=== PATIENT | female | born 1955 | race Caucasian/White ===

== ENCOUNTER 2023-04-22 05:18 | Observation (INO) ==
--- NOTE | 2023-03-20 13:39 | PAT Medication Instructions ---
Medication Instructions Date of Service March 20, 2023 Home Medications amlodipine 10 mg-olmesartan 20 mg tablet 1 tab PO QAM ascorbic acid (vitamin C) 500 mg tablet (Vitamin C) 500 mg PO BID calcium citrate 200 mg (950 mg) tablet 200 mg PO HS coQ10 (ubiquinol) 100 mg capsule 100 mg PO QAM cyanocobalamin (vitamin B-12) 1,000 mcg capsule 1,000 mcg PO HS fenofibrate nanocrystallized 145 mg tablet 145 mg PO QAM glipizide 5 mg tablet 5 mg PO BID glucosamine-chondroitin 250 mg-200 mg tablet (Osteo Bi-Flex) 1 tab PO BID levothyroxine 150 mcg tablet (Synthroid) 150 mcg PO QAM montelukast 10 mg tablet 10 mg PO HS cholecalciferol (vitamin D3) 125 mcg (5,000 unit) tablet 125 mcg PO BID empagliflozin 25 mg tablet (Jardiance) 25 mg PO QAM fluticasone propionate 50 mcg/actuation nasal spray,suspension 2 spray intranasal DAILY PRN rabeprazole 20 mg tablet,delayed release 20 mg PO QAM krill 350 mg-omega-3 90 mg-dha 24 mg-epa 50 [id number] capsule (MegaRed [place]-3 Krill Oil) 1 cap PO QAM magnesium 250 mg tablet 250 mg PO HS pyridoxine (vitamin B6) 100 mg tablet 100 mg PO HS zinc acetate 50 mg (zinc) capsule 50 mg PO HS biotin 1 tab PO QAM STOP 3 days before surgery empagliflozin 25 mg tablet (Jardiance) 25 mg PO QAM Continue as directed fluticasone propionate 50 mcg/actuation nasal spray,suspension 2 spray intranasal DAILY PRN(if needed) STOP taking 2 weeks before surgery (or as soon as possible if surgery is within 2 weeks) coQ10 (ubiquinol) 100 mg capsule 100 mg PO QAM glucosamine-chondroitin 250 mg-200 mg tablet (Osteo Bi-Flex) 1 tab PO BID krill 350 mg-omega-3 90 mg-dha 24 mg-epa 50 [id number] capsule (MegaRed Graham-3 Krill Oil) 1 cap PO QAM biotin 1 tab PO QAM STOP taking 48 hours before surgery fenofibrate nanocrystallized 145 mg tablet 145 mg PO QAM DO NOT take the morning of surgery amlodipine 10 mg-olmesartan 20 mg tablet 1 tab PO QAM ascorbic acid (vitamin C) 500 mg tablet (Vitamin C) 500 mg PO BID glipizide 5 mg tablet 5 mg PO BID cholecalciferol (vitamin D3) 125 mcg (5,000 unit) tablet 125 mcg PO BID Take morning of surgery With a small sip of water, OTHERWISE NOTHING TO EAT OR DRINK AFTER MIDNIGHT: levothyroxine 150 mcg tablet (Synthroid) 150 mcg PO QAM rabeprazole 20 mg tablet,delayed release 20 mg PO QAM Take evening before surgery ascorbic acid (vitamin C) 500 mg tablet (Vitamin C) 500 mg PO BID calcium citrate 200 mg (950 mg) tablet 200 mg PO HS cyanocobalamin (vitamin B-12) 1,000 mcg capsule 1,000 mcg PO HS glipizide 5 mg tablet 5 mg PO BID montelukast 10 mg tablet 10 mg PO HS cholecalciferol (vitamin D3) 125 mcg (5,000 unit) tablet 125 mcg PO BID magnesium 250 mg tablet 250 mg PO HS pyridoxine (vitamin B6) 100 mg tablet 100 mg PO HS zinc acetate 50 mg (zinc) capsule 50 mg PO HS Other Notes If you have any questions please call us at [phone] or [phone] or [phone] or [phone]
--- NOTE | 2023-04-01 12:01 | Anesthesiology Consultation ---
Date of Service April 01, 2023 Assessment & Plan (1) Encounter for pre-operative examination: Chart Review Chart Review: Acceptable Risk for Surgery and Patient seen in Pre Admission Testing - Check BSG AM DOS - Pt not an ideal OPJ candidate (currently 23 hour observation) Per PAT appt on 04/01/23, no recent illness/disease exposures, illness related symptoms, or recent illness/disease positive tests. Will leave to surgeon's d iscretion if preop Covid testing needed Patient seen by PCP 03/28/2023 = seen for preop and routine visit for follow-up. Had sick iliopsoas last month and was briefly hospitalized but fortunately has made full recovery. Will be getting CPAP on 04/10/2023. Planning for knee surgery next month. Overall feeling well. Patient medically optimized; cleared for procedure. Fibromyalgia stable. Hypertensionstable. Morbid obesitydiet and exercise. OSAstart CPAP on April 10. Type 2 diabetescontinue meds. GERD quiescent Right knee arthroscopy 02/23/21= Done under [facility] with LMA #4. Atraumatic x 1 attempt Teaching & Discussion Pre-Anesthesia Teaching/Discussion Notes: Instructed NPO after midnight before surgery,except medications with 15 cc of water. Medication instructions provided according to the PAT guidelines. History Surgery Operation Date: 04/22/23 07:00 Proposed Procedures p Left Total Knee Arthroplasty - Ed Jaime Pelayo MD Height/Weight Height: 5 ft 7 in Weight: 111.5 kg Allergies Allergy/AdvReac Type Severity Reaction Status Date / Time levofloxacin [From Levaquin] Allergy Mild Rash Verified 03/20/23 12:17 pantoprazole AdvReac Leg cramps Verified 03/20/23 12:17 Medications Home Medications Medication Instructions Recorded Confirmed Last Taken amlodipine 10 mg-olmesartan 20 mg 1 tab PO QAM 01/25/21 03/20/23 02/23/21 02:30 tablet ascorbic acid (vitamin C) 500 mg 500 mg PO BID 01/25/21 03/20/23 02/22/21 tablet (Vitamin C) calcium citrate 200 mg (950 mg) 200 mg PO HS 01/25/21 03/20/23 02/22/21 tablet coQ10 (ubiquinol) 100 mg capsule 100 mg PO QAM 01/25/21 03/20/23 02/22/21 cyanocobalamin (vitamin B-12) 1,000 mcg PO HS 01/25/21 03/20/23 02/22/21 1,000 mcg capsule fenofibrate nanocrystallized 145 145 mg PO QAM 01/25/21 03/20/23 02/20/21 mg tablet glipizide 5 mg tablet 5 mg PO BID 01/25/21 03/20/23 02/23/21 02:30 glucosamine-chondroitin 250 mg-200 1 tab PO BID 01/25/21 03/20/23 02/20/21 mg tablet (Osteo Bi-Flex) levothyroxine 150 mcg tablet 150 mcg PO QAM 01/25/21 03/20/23 02/23/21 02:30 (Synthroid) montelukast 10 mg tablet 10 mg PO HS 01/25/21 03/20/23 02/22/21 cholecalciferol (vitamin D3) 125 125 mcg PO BID 02/26/23 03/20/23 Unknown mcg (5,000 unit) tablet empagliflozin 25 mg tablet 25 mg PO QAM 02/26/23 03/20/23 Unknown (Jardiance) fluticasone propionate 50 2 spray intranasal DAILY PRN 02/26/23 03/20/23 Unknown mcg/actuation nasal Congestion spray,suspension rabeprazole 20 mg tablet,delayed 20 mg PO QAM 02/26/23 03/20/23 Unknown release krill 350 mg-omega-3 90 mg-dha 24 1 cap PO QAM 02/27/23 03/20/23 Unknown mg-epa 50 cz-[id number]-yasii capsule (MegaRed [place]-3 Krill Oil) magnesium 250 mg tablet 250 mg PO HS 02/27/23 03/20/23 Unknown pyridoxine (vitamin B6) 100 mg 100 mg PO HS 02/27/23 03/20/23 Unknown tablet zinc acetate 50 mg (zinc) capsule 50 mg PO HS 02/27/23 03/20/23 Unknown biotin 1 tab PO QAM 03/20/23 03/20/23 Unknown Past Medical History Medical History (Updated 04/01/23 @ 14:41 by Pamela Vera PA-C) History of recent hospitalization 02/26/23, dx w/shigella>no current issues Sleep apnea dx and working w/PCP to get a cpap currently Hx of Lyme disease 2012 s/p treatment- no residual issues Osteoarthritis Fatty liver Mild LFT elevation - stable GERD (gastroesophageal reflux disease) Controlled Diabetes mellitus, type 2 NIDDM Glucose stable Hypothyroidism Temporomandibular joint disorder Mouth guard HS-since wearing guard doesn't get any clicking or locking Anxiety Hypertension Hyperlipidemia Exercise / Class Metabolic Activity II 4-5 Yardwork/Stairs/Walk up hill (one flight of stairs - no chest pain or SOB ) Past Family History Family History Father Family history of diabetes mellitus Sister Family history of diabetes mellitus Other No family history of adverse response to anesthesia Past Surgical History Surgical History Hx of left cataract extraction rt eye to be done 04/08/23 History of endometrial ablation History of dilatation and curettage History of esophagogastroduodenoscopy (EGD) H/O lumpectomy Left (benign) History of arthroscopy Left knee and right knee History of colonoscopy History of section x3 [place] teeth removed History of tonsillectomy Past Anesthesia History No Hx of Anesthesia Complications and No Family Hx of Anesthesia Complications (with exception to sister- possibly given too much anesthesia- stopped breathing- but did recover ) History of PONV No Hx of PONV and No Hx of Motion Sickness Social History Smoking Status: Never smoker Do You Dip or Chew Tobacco: No Hx Alcohol Use: No Hx Substance Use: No substance use type: does not use Review of Systems Patient denies chest pain, shortness of breath, dyspnea on exertion, cough, wheezing, palpitations. No hx of seizures, stroke, [place]. No hx of blood clots or blood transfusions Physical Exam Vital Signs VITALS BP 113/73 P 91 TEMP 97.9 SP02 94% RESP 16 Constitutional no acute distress ENMT Mouth: no TMJ clicking Thyromental Distance: < 3.5 Finger Breadths (3.0) Mallampati Class: III Crowns to side teeth/molars Neck neck extension not limited Respiratory normal respiratory effort; no respiratory distress Auscultation: lungs clear to auscultation bilaterally; no wheezes Cardiovascular Rate/Rhythm: regular rate and regular rhythm Heart Sounds: no murmur Vessels: no carotid bruit Musculoskeletal Spine: no pain with cervical ROM Extremities: extremities normal to inspection Psychiatric Orientation: alert Lab Results Anesthesia Preop Results Results Anesthesia Widget: PT 10.4 Seconds (9.0-12.0) 04/01/23 PTT 27.6 Seconds (21.0-31.0) 04/01/23 INR 0.9 (0.9-1.1) 04/01/23 Urine Color Yellow 04/01/23 Urine Appearance Clear (Clear) 04/01/23 Urine pH 5.5 (4.5-7.5) 04/01/23 Urine Specific [place] 1.039 (1.000-1.030) H 04/01/23 Urine Protein Negative (Negative) 04/01/23 Urine Glucose (UA) 3+ (Negative) H 04/01/23 Urine Ketones Negative (Negative) 04/01/23 Urine Blood Negative (Negative) 04/01/23 Urine Nitrite Negative (Negative) 04/01/23 Urine Bilirubin Negative (Negative) 04/01/23 Urine Urobilinogen Negative (Negative) 04/01/23 Urine Leukocyte Esterase Negative (Negative) 04/01/23 Blood Type A Positive 04/01/23 Antibody Screen NEGATIVE 04/01/23 Testing Laboratory Results 03/28/23= WBC: 10.23 H/H: 14.9/46.1 PLATELETS: 501 (chronic and stable since at least 2018 per [facility] labs) SODIUM: 140 POTASSIUM: 4.5 CHLORIDE: 103 CO2: 25 BUN: 16 CREATININE: 0.9 GLUCOSE: 169 ALT: 47 AST: 38 ALK PHOS: 82 HGB A1C: 7.1 TSH: 0.25 (med adjustments made per patient) FREE T4: 2.0 Electrocardiogram Date: 02/21/23 Findings: + NSR @ (93bpm) Low voltage QRS, consider pulmonary disease, pericardial effusion or normal variant When compared to EKG from November 02, 2021no significant change was found per cardio Chest X-Ray Date: 04/01/23 Findings: + NAD
[2023-04-22] MEDS ORDERED: TRANEXAMIC ACID 1,000 MG **IV Intra-op IV SCH (06:00)
[2023-04-22] MEDS ORDERED: ACETAMINOPHEN 500 MG TAB PO SCH (06:00)
[2023-04-22] MEDS ORDERED: ROPIVACAINE 0.5% HCL/PF 150 MG, BUPIVACAINE 0.75% MPF 20 ML, EPINEPHrine 0.15 MG, Ketor... INFIL SCH (06:00)
[2023-04-22] MEDS ORDERED: Scopolamine 1 MG TDSY TD SCH (06:00)
[2023-04-22] MEDS ORDERED: ceFAZolin 2000MG 2,000 MG/15 ML SYR IV SCH (06:00)
[2023-04-22] MEDS ORDERED: CeleBREX 200 MG CAP PO SCH (06:00)
[2023-04-22] MEDS ORDERED: TRANEXAMIC ACID 1,000 MG **IV Pre-op IV SCH (06:00)
[2023-04-22] MEDS ORDERED: LR 60ML/HR IV SCH (06:00)
[2023-04-22] MEDS ORDERED: ROPIVACAINE 0.5% 5 MG/ML 30 ML VIAL ONE (06:12)
[2023-04-22] MEDS ORDERED: fentaNYL citrate PF 100 MCG/2 ML VIAL IV PRN (06:33)
[2023-04-22] MEDS ORDERED: ONDANSETRON INJ 2 MG/ML 2 ML VIAL IV PRN ×2 (06:33→11:02)
[2023-04-22] MEDS ORDERED: ePHEDrine sulfate 50 MG/ML AMP IV PRN (06:33)
[2023-04-22] MEDS ORDERED: ATROPINE SULFATE 0.1 MG/ML 10ML SYR IV PRN (06:33)
[2023-04-22] MEDS ORDERED: HYDROmorphone INJ 2 MG/ML SYR/VIAL IV PRN (06:33)
--- NOTE | 2023-04-22 06:35 | History & Physical Bridge Note ---
Date of Service April 22, 2023 History & Physical Bridge Note I have examined the patient, reviewed the History & Physical and in the interval since the performance of the History & Physical I have noted the following changes of clinical significance: no changes noted
[2023-04-22] MEDS ORDERED: fentaNYL citrate PF 100 MCG/2 ML VIAL ONE (06:39)
[2023-04-22] MEDS ORDERED: MIDAZOLAM HCL 1 MG/ML 2ML VIAL ONE (06:39)
--- OUTSIDE RECORDS SUMMARY | 2023-04-22 06:51 | External Medical Summary | Summary of Care ---
Author Name Unknown Organization [facility] Address [address] [place] [address] Phone [phone] Care Team Providers Care Mounter Hand Name Role Phone Bunny Peña MD Primary Care Provider [phone] Reason for Visit * Reason Onset Date Comments Health Maintenance 04/16/2023 Encounter Details Date Type Department Care Team (Late st Contact Info) Description 04/16/2023 Telephone Family Practice [facility] [address] [facility] [place] [address] Bunny Peña MD [address] [facility] [place] [address] Health Maintenance Allergies Active Allergy Reactions Criticality Noted Date Comments Pollen 11/02/2018 Seasonal allergies Levofloxacin In D5w Rash High 11/02/2018 Pantoprazole 01/30/2021 Leg cramps documented as of this encounter (statuses as of 04/16/2023) Medications Medication Sig Dispensed Refills Start Date End Date Status Fluticasone Propionate 50 MCG/ACT Nasal Suspension Administer 1 Kimper into nostril in the morning. 0 Active B Complex Vitamins (B COMPLEX 50) TABS Take by mouth. 0 A ctive Cholecalciferol 50 MCG (1999 UT) Oral Capsule Take 1 Capsule by mouth in the morning. 0 Active Ascorbic Acid (VITAMIN C) 100 MG Tablet Take 1 Tablet by mouth in the morning. 0 Active Coenzyme Q10 (COQ10) 100 MG CAPS Take by mouth. 0 Active Triamcinolone Acetonide 0.1 % External Ointment (Aristocort)Indicati ons:Hand dermatitis Apply to rash on hands 2x daily (or more if itchy instead of scratching) until resolved 30 g 0 08/29/2020 Active Albuterol Sulfate HFA 108 (90 Base) MCG/ACT Inhalation Aerosol SolutionIndications: Suspected COVID-19 virus infection Inhale 2 Puffs by mouth every 6 hours as needed for Cough. 18 g 1 05/25/2021 Active Move Free Joint Health Advance Oral Tablet Take by mouth . 0 Active glipiZIDE 5 MG Oral Tablet (Glucotrol) TAKE 1 TABLET TWICE A DAY, 30 MINUTES BEFORE MEALS 180 Tablet 3 08/07/2022 Active Fenofibrate 145 MG Oral Tablet (Tricor) Take 1 Tablet by mouth in the morning. In the morning.. 90 Tablet 3 08/07/2022 Active amLODIPine-Olmesarta n 10-20 MG Oral Tablet Take 1 Tablet by mouth in the morning. 90 Tablet 3 08/07/2022 Active Montelukast Sodium 10 MG Oral Tablet (Singulair) TAKE 1 TABLET BEFORE BEDTIME 90 Tablet 2 12/18/2022 Active RABEprazole Sodium 20 MG Oral Tablet Delayed Release TAKE 1 TABLET IN THE MORNING 90 Tablet 2 01/20/2023 Active Ketorolac Tromethamine 0.5 % Ophthalmic Solution (Acular) Instill 1 Drop into the left eye in the morning and 1 Drop at noon and 1 Drop in the evening and 1 Drop before bedtime. 0 01/31/2023 Active prednisoLONE Acetate 1 % Ophthalmic Suspension (Pred Forte) Instill 1 Drop into the left eye in the morning and 1 Drop at noon and 1 Drop in the evening and 1 Drop before bedtime. 0 01/30/2023 Active Zinc Acetate 50 MG Oral Capsule Take by mouth. 0 Active Magnesium 250 MG Oral Tablet Take 1 Tablet by mouth in the morning. 0 Active Biotin 5 MG Oral Tablet Take 1 Tablet by mouth in the morning. 0 Active Krill Oil 300 MG Oral Capsule Take 1 Capsule by mouth in the morning. 0 Active Levothyroxine Sodium 125 MCG Oral Tablet (Synthroid) Take 1 Tablet by mouth in the morning. (at least 30 min prior to breakfast or other meds). 90 Tablet 1 03/31/2023 Active Jardiance 25 MG Oral Tablet (Empagliflozin)Indic ations:Type 2 diabetes mellitus without complications (HCC) TAKE 1 TABLET BY MOUTH EVERY DAY IN THE MORNING 30 Tablet 2 04/15/2023 Active documented as of this encounter (statuses as of 04/16/2023) Active Problems Problem Noted Date Diagnosed Date HERBERT (obstructive sleep apnea) 11/01/2021 H/O dysplastic nevus 10/03/2021 Overview: Mildly atypical nevus (L distal neck) Fibromyalgia 07/16/2019 HTN, goal below 130/80 04/16/2019 Type 2 diabetes mellitus wit h hemoglobin A1c goal of less than 8.0% 04/13/2019 Acquired hypothyroidism 11/02/2018 Dyslipidemia 11/02/2018 Gastroesophageal reflux disease with esophagitis 11/02/2018 Morbid obesity 11/02/2018 documented as of this encounter (statuses as of 04/16/2023) Resolved Problems Problem Noted Date Diagnosed Date Resolved Date Food insecurity 12/16/2022 03/28/2023 Overview: Per [facility] Protocol Food insecurity 01/14/2022 06/19/2022 Overview: Per [facility] Protocol Obesity, Class II, BMI 35-39 .9, isolated (see actual BMI) 07/28/2021 03/05/2023 At risk for obstructive sleep apnea 07/28/2021 11/01/2021 Primary osteoarthritis of left knee 10/18/2019 11/02/2021 Recurrent major depressive d isorder, in partial remission 04/16/2019 11/02/2021 Chronic pain of left knee 11/02/2018 Impaired fasting glucose 11/02/201802/2019 documented as of this encounter (statuses as of 04/16/2023) Immunizations Name Administration Dates Next Due COVID-19 mRNA, LNP-s, No Pre serve, 2-Dose Series (Moderna) 06/12/2020,2020 Pneumococcal Conjugate Vaccine, 20-valent (Prevn ar20) 11/02/2021 Pneumococcal Polysaccharide PPV23 (Pneumovax) Seasonal Influenza Virus Vac cine, Unspecified Formulation 01/23/2022,01/17/2019 Seasonal Influenza, PF, 6 M & above, IM , (FluLaval or Fluzone) 02/17/2020,01/17/2019 Seasonal Influenza, Quadrivalent Hd (Fluzone Hd) 02/21/2023 TDAP (age 10 and older)(Boostrix) 06/04/2017 Zoster Vaccine Recombinant (Shingrix) 10/18/2019 ,07/16/2019 documented as of this encounter Social History Tobacco Use Types Packs/Day Years Used Date Smoking Tobacco: Never Smokeless Tobacco: Never Alcohol Use Standard Drinks/Week Comments Never 0 (1 standard drink = 0.6 oz pur e alcohol) AUDIT-C Answer Date Recorded Frequency of Alcohol Consumption Never 11/02/2018 Average Number of Drinks Not on file 019 Frequency of Binge Drinking Not on file 05/2018 PHQ-2 Answer Date Recorded PHQ Adult Total Score 3 05/26/2020 Hunger Vital Sign Answer Date Recorded Within the past 12 months, y ou worried that your food would run out before you got the money to buy more. Often true Within the past 12 months, t he food you bought just didn't last and you didn't have money to get more. Sometimes true Sex and Gender Information Value Date Recorded Sex Assigned at Female 09/25/2021 10:03 AM EDT Gender Identity Female 09/25/2021 10:03 AM EDT Sexual Orientation Straight 09/25/2021 10 :03 AM EDT Job Start Date Occupation Industry Not on file Not on file Not on file documented as of this encounter Miscellaneous Notes * Telephone Encounter - Wendy Perez LPN - 04/16/2023 11:14 AM EST Care Gaps Comprehensive Care Outreach Last Office/Telemedicine Visit: 03/28/2023 (in office), 05/29/2022 (telemedicine) Next Office Visit: 06/06/2023 Hemoglobin AIC Results: Lab Results Component Value Date/Time HEMOGLOBIN A1C - [facility] 7.1 (H) 03/28/2023 02:02 PM HEMOGLOBIN A1C - [facility] 7.2 (H) 06/20/2022 11:37 AM HEMOGLOBIN A1C - [facility] 10.5 (H) 10/31/2021 07:57 AM HEMOGLOBIN A1C - [facility] 8.1 (H) 05/26/2020 11:33 AM HEMOGLOBIN A1C - [facility] 7.6 (H) 07/16/2019 12:52 PM HEMOGLOBIN A1C - [facility] 8.5 (H) 04/10/2019 09:19 AM Reviewed Health Maintenance below: Health Maintenance Topic Date Due Hepatitis C Screening Never done Hepatitis B (1 of 3 - Risk 3-dose series) Never done Depression Screening 05/26/2021 Diabetic Eye Exam 09/07/2021 COVID-19 Vaccine () 01/03/2023 Eye myng Care Gap Outreach Action Taken: Myportal message sent documented in this encounter Plan of Treatment Upcoming Encounters Date Type Department Care Team (Late st Contact Info) Description 06/06/2023 8:40 AM EST Office Visit Family Practice [facility] [address] [facility] [place] [address] Bunny Peña MD [address] [facility] [place] [address] 09/30/2023 8:15 AM EDT Imaging Radiology [facility] [address] [facility] [place] [address] 11/20/2023 8:20 AM EDT Office Visit Dermatology[address] [address] Marian Gardner PA-C [address] [place] [address] [place] [id number] Scheduled Procedures Name Priority Associated Diagnoses Date/Ti me COLONOSCOPY FLEXIBLE PROXIMA L DIAGNOSTIC Recall History of adenomatous polyp of colon Health Maintenance Due Date Last Done Comments Hepatitis C Screening 1974 Cologuard 2001 Fecal Occult Blood Test 2001 Sigmoidoscopy 2001 Hepatitis B (1 of 3 - Risk 3-dose series) 2016 Depression Screening 05/26/2021 05/26/2020 Diabetic Eye Exam 09/07/2021 09/07/2020 COVID-19 Vaccine () 01/03/2023 06/12/2020, 2020 HbA1c 09/26/2023 03/28/2023, 06/05, 10/31/2021, Additional history exists Mammogram 09/27/2023 09/26/2022, 09/02, 06/14/2020, Additional history exists Diabetic Foot Exam 02/22/2024 02/21/2023, 0 11/02/2021, 04/18/2020 Albumin/Creatinine Ratio 03/28/2024 03/28/2023, 0601/2022 GFR 03/28/2024 03/28/2023, 06/05, 01/26/2021, Additional history exists TSH 03/28/2024 03/28/2023, 06/05, 10/31/2021, Additional history exists Lipid Panel 10/31/2026 10/31/2021, 10/03, 04/10/2019 DTaP,Tdap,and Td Vaccines (2 - Td or Tdap) 06/04/2027 06/04/2017 DXA Scan 11/11/2029 11/11/2022 Colonoscopy 08/16/2030 08/16/2020, 08/16/2020 Colorectal Cancer Screening 08/16/2030 Zoster Vaccines Completed 10/18/2019, 07/16/2019 Pneumococcal Vaccine: 65+ Years Completed 11/02/2021, 07/16/2019 Influenza Vaccine (FLU shot) Completed , 01/23/2022, 02/17/2020, Additional history exists GARDASIL-HPV IMMUNIZATION SERIES Aged Out No longer eligible based on patient's age to complete this topic MENINGOCOCCAL (MENACTRA/MENVEO) Aged Out No longer eligible based on patient's age to complete this topic documented as of this encounter Medical Devices Implanted Type Area Application Packager Device Identifier Shelf Expiration Date Model / Serial / Lot Lens Li61ao 13.00mm 14.00 - [id number] - [id number] Implanted:Qty: 1 on 03/11/2023 by Norberto Clarke MD at [facility] Left: Eye [employer] 09/02/2027 [id number] / [id number] / [id number] Lens Li61ao 13.00mm 13.00 - [id number] - [id number] Implanted:Qty: 1 on 04/08/2023 by Norberto Clarke MD at [facility] Right: Eye [employer] 08/03/2027 [id number] / [id number] / [id number] documented as of this encounter Advance Directives Latest Code Status on File Code Status Date Activated Date Inactivated Comments Full Code 04/08/2023 6:45 AM 04/08/2023 12:41 PM This order reflects the patients wishes and were consensually agreed upon. Question Answer Comments Discussion of Advance Directives occurred with: Patient Does the patient have a Living Will? No Does the patient have Health Care Power of [employer]il[place]? No Code Status History Code Status Date Activated Date Inactivated Comments Full Code 03/11/2023 8:34 AM 03/11/2023 3:22 PM This order reflects the patients wishes and were consensually agreed upon. Question Answer Comments Discussion of Advance Directives occurred with: Patient Does the patient have a Living Will? No Does the patient have Health Care Power of [employer]? No Care Teams Mounter Hand Relationship Specialty Start Date End Date Bunny Peña MD [address] [place] [id number] PCP - General Family Medicine 11/02/18 documented as of this encounter
--- OUTSIDE RECORDS SUMMARY | 2023-04-22 06:51 | External Medical Summary | Continuity of Care Document ---
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 [place] [id number] [address] [place] [id number] Encounter Diagnosis Left knee DJD(Discharge Diagnosis) - 04/01/23 Discharge Disposition: Home or Self Care Attending Physician: SHANE Daniels, Jade Referring Physician: MD Gita, Ed A Allergies, Adverse Reactions, Alerts Substance Reaction Severity Status Levaquin rash Active pantoprazole leg cramps Active Medications amLODIPine-olmesartan 10 mg-20 mg oral tablet TAKE 1 TABLET BY MOUTH EVERY DAY Start Date: 11/30/20 Status: Ordered B-12 Start: 11/30/20 10:50:00 EDT, 1,000 mcg =, PO, Daily Start Date: 11/30/20 Status: Ordered biotin Start: 04/01/23 10:53:00 EST Start Date: 04/01/23 Status: Ordered Calcium and Magnesium oral tablet Start: 11/30/20 10:53:00 EDT, 1 tab, PO, tid, magnesium zinc d 3 333/133/5mg/5mcg Start Date: 11/30/20 Status: Ordered Citracal Regular Start: 11/30/20 10:52:00 EDT, 400 mg daily Start Date: 11/30/20 Status: Ordered Co Q-10 Start: 11/30/20 10:52:00 EDT, 100 mg =, PO, Daily Start Date: 11/30/20 Status: Ordered Euflexxa 10 mg/mL intra-articular solution Start: 04/09/21 14:03:00 EST, 20 mg =, intra-articular, q7days, Disp# 12 mL, Refills: 0[facility]: B/L OA M17.0, Pharmacy: [facility] Start Date: 04/09/21 Stop Date: 04/30/21 Status: Ordered fenofibrate 145 mg oral tablet Start: 11/30/20 10:49:00 EDT, 1 tab, PO, Daily Start Date: 11/30/20 Status: Ordered Flonase 50 mcg/inh nasal spray Start: 11/30/20 10:51:00 EDT, 1 spray, each nostril, Daily Start Date: 11/30/20 Status: Ordered glipiZIDE 5 mg oral tablet Start: 11/30/20 10:49:00 EDT, 1 tab, PO, Daily Start Date: 11/30/20 Status: Ordered Jardiance 25 mg oral tablet Start: 03/20/22 12:43:00 EST, 1 tab, PO, Daily, Disp# 30 tab Start Date: 03/20/22 Status: Ordered ketorolac 0.5% ophthalmic solution Start: 04/01/23 10:52:00 EST Start Date: 04/01/23 Status: Ordered magnesium aspartate Start: 04/01/23 10:53:00 EST Start Date: 04/01/23 Status: Ordered montelukast 10 mg oral tablet Start: 11/30/20 10:49:00 EDT, 1 tab, PO, qPM Start Date: 11/30/20 Status: Ordered Osteo Bi-Flex Start: 11/30/20 10:53:00 EDT, 2 daily Start Date: 11/30/20 Status: Ordered polymyxin B-trimethoprim 10,000 units-1 mg/mL ophthalmic solution Start: 04/01/23 10:53:00 EST Start Date: 04/01/23 Status: Ordered prednisoLONE acetate 1% ophthalmic suspension Start: 04/01/23 10:53:00 EST Start Date: 04/01/23 Status: Ordered RABEprazole 20 mg oral delayed release tablet Start: 04/01/23 10:53:00 EST Start Date: 04/01/23 Status: Ordered Harshal Antartic Krill Oil Start: 04/01/23 10:53:00 EST Start Date: 04/01/23 Status: Ordered Synthroid 150 mcg (0.15 mg) oral tablet Start: 11/30/20 10:49:00 EDT, 1 tab, PO, Daily Start Date: 11/30/20 Status: Ordered Vitamin C Start: 11/30/20 10:51:00 EDT, 1,000 mg =, PO, Daily Start Date: 11/30/20 Status: Ordered Vitamin D3 Start: 11/30/20 10:51:00 EDT, 5000 iu, PO, Daily Start Date: 11/30/20 Status: Ordered Zinc Start: 04/01/23 10:53:00 EST Start Date: 04/01/23 Status: Ordered Mental Status 04/01/23 Barriers to Learning one year None evide nt Mandatory Health Literacy Documentation Yes Health Literacy Communication Barriers N ever Primary Language Maltese Problem List Condition Confirmation Course Effective Dates Status Health St atus Informant Anxiety Confirmed Active Arthritis Confirmed Active Bilateral knee pain Confirmed Active Diabetes Confirmed Active Thyroid disease Confirmed Active High blood pressure Confirmed Active OA (osteoarthritis) of knee Confirmed Active Left knee DJD Confirmed Active S/P orthopedic surgery, follow-up exam Confirmed Active Tear of meniscus of right knee Confirmed Active Diagnosis Diagnosis Type Effective Dates Health Status Cl inical Service Informant Left knee DJD Discharge Diagnosis 04/01/23 Procedures Procedure Date Related Diagnosis Body Site Status Arthroscopy of knee with med ial and lateral meniscectomy 1 02/23/21 Completed section 2 Comple javi History of orthopedic surgery 3 Completed Lumpectomy Completed Tonsillectomy Completed 1Right knee arthroscopy, PMM and PLM, chondroplasty, extensive debridement 23 33 on left knee Vital Signs Most recent to oldest [Reference Range]: 1 Height 167.7 cm (04/01/23 10:50 AM) Patient Weight 108.4 kg (04/01/23 10:50 AM) Body Mass Index 38.54 kg/m2 (04/01/23 10:50 AM) Temperature [36.5-37.9 DegC] 36.5 DegC (04/01/23 10:50 AM) Heart Rate 99 bpm (04/01/23 10:50 AM) Respiratory Rate 20 br/min (04/01/23 10:50 AM) Blood Pressure 130/62mmHg (04/01/23 10:50 AM) Social History Social History Type Response Smoking Status Never smoked cigaret cuong Sex Female History and physical note * SHANE Daniels, Jade: PERFORM Event Display: . Authored Date: [id number] Chief Complaint pre op History of Present Illness Dianne is a 67-year-old female here today for preoperative history and physical for left total kneearthroplasty with Dr. Pelayo. She has had ongoing left knee pain that got worse October 07, 2022 aftera fall. She is unable to afford hyaluronic acid injections so she has been getting cortisone injections. Her last cortisone injection was 10/24/2022. The cortisone injections stopped helping her. She reports soreness in her knee mostly over the medial joint line. She is currently taking Tylenol and ibuprofen at nighttime for pain. She is status post right knee arthroscopy, extensive debridement, partial medial and lateral meniscectomies, chondroplasty of the patellofemoral compartment, medial compartment and lateral tibial plateau on February 23, 2021. She denies any history of blood clots, heart attack, stroke. She is not a smoker. She did just recentlyhaveshigellosis and was hospitalized on February 26 but she reports that she is fully recovered and is finished her antibiotics and is currently havingno symptoms. She denies any changes with her knee since she waslast seen. Review of Systems DeniesRecent pneumonia, COVID or COVID exposures; DeniesFevers, chills, malaise; DeniesChest pain, heart palpitations; DeniesShortness of breath, cough; DeniesHeadache or blurry vision; DeniesAbdominal pain, nausea, vomiting, diarrhea, or urinary symptoms Physical Exam Vitals & Measurements T:36.5C HR:99(Monitored) RR:20 BP:130/62 SpO2:92% HT:167.7cm WT:108.4kg WT:108.400kg(Dosing) BMI:38.54 General: Pt is well nourished, seated on the exam table AA&O, in NAD, calm and cooperative during exam HENT: Nontraumatic, no gross deformity, hearing and vision grossly in-tact, PERRL Heart: +S1, +S2, RRR, no murmurs appreciated Lungs: CTABL, no wheezing appreciated Focusing on the patient's left lower extremity: 2+ DP pulse Sensation to light touch is intact Motor to the gastroc soleus, tibialis anterior, and EHL is 5/5. Able to perform straight leg raise. + Medial joint line tenderness left - Rafaela's Ligamentous examination exhibits: Stable Yesenia 0 mm anterior translation and firm endpoint Posterior drawer stable Varus valgus stress at 0 and 30stable Valgus stress at 0 and 30stable Trace Effusion on left Left knee range of motion -5125. + Tenderness to palpation inferior pole of patella, left Palpable romero's cyst, left [1] Diagnostic Results Dr. Pelayo obtained and personally interpreted bilateral knee OA series which included: Hips to ankles, 45 degree flexion PA view, AP standing, lateral, and sunrise views of both knees compared to 2021 which showed progressed left knee medial joint space narrowing greater than right, marginal osteophytes, sclerosis. The left knee with near [id number]. 8 degrees varus alignment on the right and 4degrees varus alignment on the left. [2] Assessment/Plan 1.Left knee DJD Preop The risks and benefits of surgery as well as the post operative course was explained and discussed with the patient. Written consent obtained. The patient's past medical history, surgeries, social history, medication list, allergies and PDMP were reviewed and confirmed with the patient. Patientobt ainedmedical clearance. Has her PAT appointment today. EKGdone 02/24/2022nd showed no concerning findings. He had ahemoglobin A1c done on 02/2423 that was 7.1, TSH done 03/28/2023, CMPdone 03/28/2023that showed elevated glucose slightly elevatedLFTs,CBC done showedelevated platelets.Otherpreoperative orders were placedincluding type and screen, PTT/INR,urinalysis with reflex to culture and sensitivityand chest x-ray. We discussed postoperative painmedications includingoxycodone, tylenol,as well as icing and elevating to control pain. DVT prophylaxis -ASA 81mg BID x 6 weeks and JAVI stockings x 2 weeks. Additional medications -stool softener as needed to prevent constipation while on narcotics, multi-vitamin OR Vitamin C 500mg BID x 2 weeks, Iron 324mg BID x 2 weeks to promote healing. The patient has been scheduled for post operative appointments, including any PT or HH services, per surgeon's preference. She would like to do physical therapy with us. Orders were placed today. She will need walker, raised toilet seat andshower seat. The patient was given a preoperative booklet and we reviewed the most pertinent things leading up to the surgery and the day of surgery; including any assisted devices pt may need, when/who to call for the surgery time, where to arrive the day of surgery, NPO after midnight, medications to hold, prepping the skin with CHG to prevent infection etc. All of their questions and concerns were answered today. They were instructed to call our office if they have any further questions or concerns. Problem List/Past Medical History Ongoing Anxiety Arthritis Bilateral knee pain Diabetes High blood pressure Left knee DJD OA (osteoarthritis) of knee S/P orthopedic surgery, follow-up exam Tear of meniscus of right knee Thyroid disease Procedure/Surgical History Arthroscopy of knee with medial and lateral meniscectomy (02/23/2021) sectionTonsillectomyLumpectomyHistory of orthopedic surgery Medications amLODIPine-olmesartan(amLODIPine-olmesartan 10 mg-20 mg oral tablet) ascorbic acid(Vitamin C), 1000 mg, PO, Daily biotin calcium-vitamin D(Citracal Regular) cholecalciferol(Vitamin D3), 5000 iu, PO, Daily chondroitin-glucosamine(Osteo Bi-Flex) cyanocobalamin(B-12), 1000 mcg, PO, Daily empagliflozin(Jardiance 25 mg oral tablet), 25 mg= 1 tab, PO, Daily fenofibrate(fenofibrate 145 mg oral tablet), 145 mg= 1 tab, PO, Daily fluticasone nasal(Flonase 50 mcg/inh nasal spray), 1 spray, each nostril, Daily glipiZIDE(glipiZIDE 5 mg oral tablet), 5 mg= 1 tab, PO, Daily ketorolac ophthalmic(ketorolac 0.5% ophthalmic solution) levothyroxine(Synthroid 150 mcg (0.15 mg) oral tablet), 150 mcg= 1 tab, PO, Daily magnesium aspartate montelukast(montelukast 10 mg oral tablet), 10 mg= 1 tab, PO, qPM multivitamin with minerals(Calcium and Magnesium oral tablet), 1 tab, PO, tid omega-3 polyunsaturated fatty acids(Harshal Antartic Krill Oil) polymyxin B-trimethoprim ophthalmic(polymyxin B-trimethoprim 10,000 units-1 mg/mL ophthalmic solution) prednisoLONE ophthalmic(prednisoLONE acetate 1% ophthalmic suspension) RABEprazole(RABEprazole 20 mg oral delayed release tablet) sodium hyaluronate(Euflexxa 10 mg/mL intra-articular solution), 20 mg, intra- articular, q7days ubiquinone(Co Q-10), 100 mg, PO, Daily zinc sulfate(Zinc) Allergies Levaquinrash pantoprazoleleg cramps Social History Smoking Status Never smoked cigarettes Recommendations Health Maintenance Pending(in the next year) OverDue Adult Influenza Vaccine due11/02/22and every 1year Due Adult COVID-19 Vaccination due04/01/23nown Frequency Adult Tdap/Td Vaccine due04/01/23nown Frequency Breast Cancer Screening due04/01/23nown Frequency Colorectal Cancer Screening due04/01/23nown Frequency Diabetes Management A1c due04/01/23wn Frequency Diabetic Eye Exam due04/01/23nown Frequency Hepatitis C Screening due04/01/23One-time only Lipid Screening due04/01/23wn Frequency Osteoporosis Screening due04/01/23One-time only Pneumococcal Vaccine Older Adults due04/01/23One-time only Shingles Vaccine due04/01/23One-time only Due In Future Body Mass Index not due until03/31/24and every 1year Satisfied(in the past 1 year) Satisfied Body Mass Index on04/01/23.Satisfied by SAMMIE Perla Kelley [1]Bilateral knee OA; MD Gita, Ed A 10/24/2022 09:22 EDT [2]Bilateral knee OA; MD Gita, Ed A 10/24/2022 09:22 EDT Electronic Signature on File Electronically Reviewed/Signed by: Jade Daniels PA-C Author Signature Dt/Tm:04/01/2023 01:43 PM Physician Wireless Manager, Dept. of Orthopaedics and Sports Medicine [facility] - [address], [address] [place] [id number] Electronically Reviewed/Signed by: Ed Pelayo MD Cosigner Signature Dt/Tm: 04/02/2023 05:44 PM [facility] Help Desk Coordinator Department of Orthopaedics and Rehabilitation [facility] [address], [place] [address] [place] Patient Care team information Care Team Personnel Name: MD Casey, Bunny Benoit Position: Referring DIRECT Member Role: Primary Care Provider Address: Address: [facility] [address] [facility] [facility] [place] [address] Care Team Related Persons Name: MANJIT PENA Address: home [address] [facility] [place] [id number]
--- OUTSIDE RECORDS SUMMARY | 2023-04-22 06:51 | External Medical Summary ---
Author Name Unknown Address Unknown Organization : Laboratory Report Ordering Provider Test Date Status NELY CORLEY 04/08/2023 07:09:46 Final Observation Date Value Abnormality Reference (Units ) Status Glucose Point of Care 04/08/2023 07:09:46 156 Above high normal 70-120 (mg/dL) Final Performing Location
--- OUTSIDE RECORDS SUMMARY | 2023-04-22 06:51 | External Medical Summary | Summary of Care ---
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 [H25.811] Procedures REMOVE CATARACT, INSERT LENS PROSTH RIGHT EXTRACAPSULAR CATARACT REMOVAL WITH INTRAOCULAR LENS Referral ID Status Reason Start Date Expiration Date Visits Re quested Visits Authorized [id number] Encounter Details Date Type Department Care Team (Latest Contact Info) Description 04/08/2023 6:42 AM EST - 04/08/2023 8:41 AM EST Hospital Encounter [facility], Operating Room [facility] [address] [place] [phone] Norberto Clarke MD [facility] Miri Smith [address] [address] Discharge Disposition: Home - Self Care Allergies Active Allergy Reactions Criticality Noted Date Comments Pollen 11/02/2018 Seasonal allergies Levofloxacin In D5w Rash High 11/02/2018 Pantoprazole 01/30/2021 Leg cramps documented as of this encounter (statuses as of 04/08/2023) Medications Medication Sig Dispensed Refills Start Date End Date Status Fluticasone Propionate 50 MCG/ACT Nasal Suspension Administer 1 Surprise into nostril in the morning. 0 Active B Complex Vitamins (B COMPLEX 50) TABS Take by mouth. 0 A ctive Cholecalciferol 50 MCG (2000 UT) Oral Capsule Take 1 Capsule by mouth in the morning. 0 Active Ascorbic Acid (VITAMIN C) 100 MG Tablet Take 1 Tablet by mouth in the morning. 0 Active Coenzyme Q10 (COQ10) 100 MG CAPS Take by mouth. 0 A ctive Triamcinolone Acetonide 0.1 % External Ointment (Aristocort)Indicat ions:Hand dermatitis Apply to rash on hands 2x daily (or more if itchy instead of scratching) until resolved 30 g 0 08/29/2020 Active Albuterol Sulfate HFA 108 (90 Base) MCG/ACT Inhalation Aerosol SolutionIndications :Suspected COVID-19 virus infection Inhale 2 Puffs by mouth every 6 hours as needed for Cough. 18 g 1 05/25/2021 Active Move Free [facility] Advance Oral Tablet Take by mouth . 0 Active glipiZIDE 5 MG Oral Tablet (Glucotrol) TAKE 1 TABLET TWICE A DAY, 30 MINUTES BEFORE MEALS 180 Tablet 3 08/07/2022 Active Fenofibrate 145 MG Oral Tablet (Tricor) Take 1 Tablet by mouth in the morning. In the morning.. 90 Tablet 3 08/07/2022 Active amLODIPine-Olmesart an 10-20 MG Oral Tablet Take 1 Tablet by mouth in the morning. 90 Tablet 3 08/07/2022 Active Jardiance 25 MG Oral Tablet (Empagliflozin)Ambar cations:Type 2 diabetes mellitus without complications (HCC) TAKE 1 TABLET BY MOUTH EVERY DAY IN THE MORNING 90 Tablet 1 10/22/2022 Active Montelukast Sodium 10 MG Oral Tablet [...] other meds). 90 Tablet 1 03/31/2023 Active Levothyroxine Sodium 150 MCG Oral Tablet (Synthroid) Take 1 Tablet by mouth in the morning. (at least 30 min prior to breakfast or other meds). 90 Tablet 3 08/07/2022 3 Discontinue d(Refill) documented as of this encounter (statuses as of 04/08/2023) Active Problems Problem Noted Date Diagnosed Date [...] as of this encounter (statuses as of 04/08/2023) Resolved Problems Problem Noted Date Diagnosed Date [...] as of this encounter (statuses as of 04/08/2023) Immunizations Name Administration Dates Next Due COVID-19 mRNA, LNP-s, No Pre serve, 2-Dose Series (Moderna) 06/12/2020,2020 Pneumococcal Conjugate Vaccine, 20-valent (Prevn ar20) 11/02/2021 Pneumococcal Polysaccharide PPV23 (Pneumovax) SEASONAL INFLUENZA, PF, 6 M & Above, IM , (FLULAVAL or FLUZONE) 02/17/2020,01/17/2019 Seasonal Influenza Virus Vac cine, Unspecified Formulation 01/23/2022,01/17/2019 Seasonal Influenza, Quadrivalent Hd (Fluzone Hd) 02/21/2023 [...] on file documented as of this encounter Last Filed Vital Signs Vital Sign Reading Time Taken Comments Blood Pressure 128/83 04/08/2023 8:17 AM EST Pulse 86 04/08/2023 8:17 AM EST Temperature 36.7 C (98 F) 04/08/2023 8:17 AM EST Respiratory Rate 18 04/08/2023 8:17 AM EST Oxygen Saturation 96% 04/08/2023 8:17 AM EST Inhaled Oxygen Concentration - - Weight 110.7 kg (244 lb) 04/08/2023 6:59 AM EST Height 167.6 cm (5' 6") 04/08/2023 6:59 AM EST Body Mass Index 39.38 04/08/2023 6:59 AM EST documented in this encounter Discharge Instructions * Discharge Instr - AVS* Norberto Clarke MD - 02/04/2023 10:35 AM EDT Discharge Date: 04/07/23 You may call Doctor Vince at during business hours and for after-hours emergencies. Your attending physician at the time of your discharge was: Norberto Clarke MD The information below provides you with the instructions and the list of medications you need to betaking following discharge from the hospital. If you have any questions, please ask before leaving.Please carry this letter with you when you see your doctor in the clinic. Diet: Normal diet Activity: No lifting or pushing or pulling more than 10 lbs for 1 week Driving: Do not drive for 24 hours . Date you may return to work or school: N/A Follow Up - Return appointment(s): 04/08/23 @12:[address] Estevez See your senior medical billing specialist in 1day(s). SPECIAL INSTRUCTIONS EYEDROPS for healing and infection prevention. 8 am (Breakfast) 12 noon (Lunch) 6 pm (Supper) 10 pm (Bedtime) Duration Polytrim 4x/day(RUSH) X X X X 1-2 Weeks Ketorolac (WEI) X X 4 Weeks Prednisolone (PINK/WHITE) X (SHAKE) X (SHAKE) X (SHAKE) X (SHAKE) 4 Weeks 1. Use your eye drops 4 times on the afternoon and evening after your surgery. 2. DO NOT RUB OR PUT PRESSURE ON THE EYE for 4 weeks after surgery. 3. Please keep your surgical eye closed on the ride home and then at home for a total of 1-2 hours after surgery. 4. You may sit, walk, watch TV, read, and perform routine activities. 5. NO exercise for 2 weeks after surgery. It is OK to walk. 6. DO NOT go underwater for 2 weeks after surgery, e.g. no swimming or hot-tubs. 7. It is OK to shower, wash your face, shave, shampoo your hair the day AFTER Surgery (a few drops of water are OK). 8. Continue warm compresses for 5 minutes, 2 times per day. 9. Sleep with the shield taped over your eyes for 2 weeks after surgery. 10. NO eye make-up for 2 weeks after surgery. 11. DO NOT make any eye drop changes to your other eye. 12. Dr. Clarke suggests that all patients remain in the area for a minimum of the one week following surgery if traveling within the [place]. Patients traveling internationally should wait 4 weeks. 13. You may return to work soon after surgery; please discuss this with Dr. Clarke. 14. You can expect the following after surgery during the first 4-6 weeks. Itchiness/scratchiness around the eye. Redness in the white of the eye. Double vision/ Fluctuation in vision. Droopiness of the eyelid. 15. Your vision should gradually improve in days and weeks after surgery. If your vision is gettingworse (not better), or your eye more red, or you are having increasing pain, or you are having new floaters or flashing lights, CALL US IMMEDIATELY. IF YOU HAVE ANY PROBLEMS, QUESTIONS OR CONCERNS, DO NOT HESITATE TO CALL US AT [phone] AT ANY TIME I, Norberto Clarke MD personally performed the services described in this documentation. All medical record entries made by the scribe were at my direction and in my presence. I have reviewed the chart and agree that the record reflects my personal performance and is accurate and complete. Norberto butirago MD. 04/08/2023. 8:04 AM. documented in this encounter Progress Notes * Norberto Clarke MD - 04/08/2023 8:14 AM EST [facility] [place] [address] [place] [id number] OUTPATIENT SURGERY DISCHARGE SUMMARY NOTE Name: Dianne De Paz Location: OR 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 Discharge instructions were given to the patient. Note has been documented by Audrey Aden on 04/08/2023 documented in this encounter H&P Notes * Norberto Clarke MD - 04/08/2023 7:35 AM EST Images from the original note were not included. Office Visit 03/28/2023 Family Practice [facility] Bunny Peña MD Family Medicine Preop examination +6 more Dx Re-Check ; Referred by Self Reason for Visit Progress Notes uBnny Peña MD (Physician) Family Medicine Expand All Collapse All SUBJECTIVE: Dianne De Paz is a 67 year old female. Chief Complaint Patient presents with Re-Check Not a preop, wanted to follow up with PCP. Needs bw done, which is ordered. HPI: Here for both a pre-op and routine visit for follow up. 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 She will be getting her CPAP on April 10 which should help with her overall fatigue. She has blood work pending to be done today. She hasknee surgery planned for next month. Overall feeling well and does not want to change any medication as of today. Problem List Patient Active Problem List Diagnosis Code Acquired hypothyroidism E03.9 Dyslipidemia E78.5 Gastroesophageal reflux disease with esophagitis K21.00 Morbid obesity (HCC) E66.01 Type 2 diabetes mellitus with hemoglobin A1c goal of less than 8.0% (HCC) E11.9 HTN, goal below 130/80 I10 Fibromyalgia M79.7 H/O dysplastic nevus Z86.018 HERBERT (obstructive sleep apnea) G47.33 Current Medications Current Outpatient Medications Medication Sig Dispense Refill Fluticasone Propionate 50 MCG/ACT Nasal Suspension Administer 1 Surprise into nostril in the morning. B Complex Vitamins (B COMPLEX 50) TABS Take by mouth. Cholecalciferol 50 MCG (2000 UT) Oral Capsule Take 1 Capsule by mouth in the morning. Ascorbic Acid (VITAMIN C) 100 MG Tablet Take 1 Tablet by mouth in the morning. Coenzyme Q10 (COQ10) 100 MG CAPS Take by mouth. Triamcinolone Acetonide 0.1 % External Ointment (Aristocort) Apply to rash on hands 2x daily (or more if itchy instead of scratching) until resolved 30 g 0 Albuterol Sulfate HFA 108 (90 Base) MCG/ACT Inhalation Aerosol Solution Inhale 2 Puffs by mouth every 6 hours as needed for Cough. 18 g 1 Move Free ImageProtect Advance Oral Tablet Take by mouth . Levothyroxine Sodium 150 MCG Oral Tablet (Synthroid) Take 1 Tablet by mouth in the morning. (at least 30 min prior to breakfast or other meds). 90 Tablet 3 glipiZIDE 5 MG Oral Tablet (Glucotrol) TAKE 1 TABLET TWICE A DAY, 30 MINUTES BEFORE MEALS 180 Tablet 3 Fenofibrate 145 MG Oral Tablet (Tricor) Take 1 Tablet by mouth in the morning. In the morning.. 90 Tablet 3 amLODIPine-Olmesartan 10-20 MG Oral Tablet Take 1 Tablet by mouth in the morning. 90 Tablet 3 Jardiance 25 MG Oral Tablet (Empagliflozin) TAKE 1 TABLET BY MOUTH EVERY DAY IN THE MORNING 90 Tablet 1 Montelukast Sodium 10 MG Oral Tablet (Singulair) TAKE 1 TABLET BEFORE BEDTIME 90 Tablet 2 RABEprazole Sodium 20 MG Oral Tablet Delayed Release TAKE 1 TABLET IN THE MORNING 90 Tablet 2 Ketorolac Tromethamine 0.5 % Ophthalmic Solution (Acular) Instill 1 Drop into the left eye in the morning and 1 Drop at noon and 1 Drop in the evening and 1 Drop before bedtime. prednisoLONE Acetate 1 % Ophthalmic Suspension (Pred Forte) Instill 1 Drop into the left eye in themorning and 1 Drop at noon and 1 Drop in the evening and 1 Drop before bedtime. Zinc Acetate 50 MG Oral Capsule Take by mouth. Magnesium 250 MG Oral Tablet Take 1 Tablet by mouth in the morning. Biotin 5 MG Oral Tablet Take 1 Tablet by mouth in the morning. Krill Oil 300 MG Oral Capsule Take 1 Capsule by mouth in the morning. No current facility-administered medications for this visit. Allergy: Review of patient's allergies indicates: Allergen Reactions Levaquin [Levofloxacin In D5w] Rash Environmental [Pollen] Seasonal allergies Pantoprazole Leg cramps OBJECTIVE: BP 132/78 | Pulse 88 | Wt 110.8 kg (244 lb 4 oz) | LMP (LMP Unknown) | BMI 39.42 kg/m | BSA 2.27 m Gen: nad Neck: supple, no jvd Lungs: ctab Heart: rrr, no mrg Ext: no c/c/e Skin; no rashes ASSESSMENT AND PLAN: (Z01.818) Preop examination (primary encounter diagnosis) Plan: medically optimized; cleared for procedure (M79.7) Fibromyalgia Plan: stable (I10) HTN, goal below 130/80 Plan: stable (E66.01) Morbid obesity (HCC) Plan: diet/exercise (G47.33) HERBERT (obstructive sleep apnea) Plan: starts CPAP on April 10 (E11.9) Type 2 diabetes mellitus with hemoglobin A1c goal of less than 8.0% (HCC) Plan: continue rx (K21.00) Gastroesophageal reflux disease with esophagitis without hemorrhage Plan: quiescent Follow up as needed. No other complaints were offered at this time. Bunny Peña MD Instructions Return in about 6 months (around 09/26/2023). Additional Documentation Vitals: BP 132/78 Pulse 88 Wt 110.8 kg (244 lb 4 oz) LMP (LMP Unknown) BMI 39.42 kg/m BSA 2.27 m More Vitals Flowsheets: Nurse Rooming Tool Encounter Info: Billing Info, History, Allergies, Detailed Report, Questionnaires Patient Handouts No notes of this type exist for this encounter. Orders Placed None Medication Changes None Medication List Visit Diagnoses Preop examination Fibromyalgia HTN, goal below 130/80 Morbid obesity (HCC) HERBERT (obstructive sleep apnea) Type 2 diabetes mellitus with hemoglobin A1c goal of less than 8.0% (HCC) Gastroesophageal reflux disease with esophagitis without hemorrhage Problem List Note has been documented by Audrey Aden on 04/08/2023 * Norberto Clarke MD - 04/08/2023 7:35 AM EST HISTORY & PHYSICAL INTERVAL NOTE [facility] [place] [address] [facility] [address] History and Physical Update: Name: Dianne De Paz Location: OR [facility]/OR Date: 04/08/2023 Time: 7:35 AM DATE OF HISTORY AND PHYSICAL: 03/28/23 BP: 140 mmHg/76 mmHg (04/08/23658) Pulse: 84 (04/08/23658) Temp: 36 C (04/08/23658) Resp: 20 (04/08/23658) SpO2: 95 % (04/08/23658) Does patient take a beta yue? No Did patient stop anticoagulants? No Heart Exam: regular rate and rhythm Lung Exam: clear to auscultation bilaterally Other Pertinent Physical Exam: none I have reviewed the H&P previously performed and examined the patient today. There are no new findings noted. documented in this encounter Nursing Notes * Berkley Evans RN - 04/08/2023 8:40 AM EST Pt ambulated to car. * Berkley Evans RN - 04/08/2023 8:23 AM EST Pt given d'c instructions and verbalized understanding. * Berkley Evans RN - 04/08/2023 8:11 AM EST Patient transferred to pacu 2 status post right cataract removal and lens placement. No drainage noted. Patient awake. Denies pain and nausea. Respirations are even and unlabored on room air. Abdomensoft and non distended. Vital signs stable. * Irma Rojas RN - 04/08/2023 7:00 AM EST Surgical consent verified with patient. Patient agrees with listed procedure and verified signature. documented in this encounter OR Notes * OR Surgeon - Norberto Clarke MD - 04/08/2023 8:13 AM EST [facility] [address] [phone] OPERATIVE REPORT Name: Dianne De Paz Date: 04/08/2023 Time: 8:14 AM Location: OR [facility] Service: Ophthalmology Date of Operation: 04/08/2023 Pre-op Diagnosis: Visually significant combined cataract, right eye Post-op Diagnosis: Same Operative Procedure: Phacoemulsification with posterior chamber intraocular lens implantation, right eye (70221 Standard Cataract) Surgeon: Norberto Clarke MD Assistants: None Anesthesia: topical Implant/Graft: B&L: 13.0 [id number] SN: [id number] Complications: none Drains: none Urine Output: minimal Specimen and Disposition: none Estimated Blood Loss: minimal Indications: The patient has noticed a decrease in their visual acuity now interfering with their activities of daily living. Slit-lamp examination revealed a visually significant lens opacity which appears to be a significant component of the decrease in visual acuity. After discussion of risks, benefits, and alternatives, the patient has elected to proceed with cataract extraction and lens implantation. Description of Procedure: The patient was brought to the operating room. A "time out" was called toconfirm the correct patient, the correct eye, the correct diagnosis, the correct procedure, relevant allergies and surgical considerations. The patient's eye was prepped and draped in the usual fashion. A wire lid speculum was placed between the lids. A paracentesis site was made, approximately three oclock hours away from the incision site. Intracameral lidocaine was injected into the anterior chamber. A clear cornea incision was then made with a keratome, and then viscoelastic was injected into the anterior chamber. A continuous curvilinearcapsulorrhexis was created using a cystitome and Utrata forcep. Hydrodissection was then performed using balanced salt solution. The nucleus was emulsified using the phacoemulsification handpiece. The cortex was removed using the automated irrigation aspiration unit. Viscoelastic was then used to deepen the capsular bag. A posterior chamber lens was then inserted into the capsular bag. The capsular bag was polished and then excess viscoelastic was aspirated using the irrigation aspiration unit. The wound was hydrated, tested and found to be water tight. Intracameral Moxifloxacin was given. After the post-operative drops were given, including topical antibiotic, and steroid, a shield was placed. The patient tolerated the procedure well. Condition: The patient left the operating room in good condition. Disposition: In and Out Recovery Unit Attestation: I performed the procedure Note has been documented by Audrey Aden on 04/08/2023 documented in this encounter Plan of Treatment Upcoming Encounters Date Type Department Care Team (Late st Contact Info) Description 06/06/2023 8:40 AM EST Office Visit Family Practice [facility] [address] [facility] [place] [address] Bunny Peña MD [address] [facility] [place] [address] 09/30/2023 8:15 AM EDT Imaging Radiology [address] [place] [address] 11/20/2023 8:20 AM EDT Office Visit Dermatology[address] [address] Marian Gardner PA-C [address] [place] [address] [place] [address] Scheduled Procedures Name Priority Associated Diagnoses Date/Ti me EXTRACAPSULAR CATARACT REMOVAL WITH INTRAOCULAR LENS Combined forms of age-related cataract of right eye 04/08/2023 7:10 AM EST COLONOSCOPY FLEXIBLE PROXIMAL DIAGNOSTIC Recall History of adenomatous polyp of colon Health Maintenance Due Date Last Done Comments Hepatitis C Screening 1974 Cologuard 2001 Fecal Occult Blood Test 2001 Sigmoidoscopy 2001 Hepatitis B (1 of 3 - Risk 3-dose series) 2016 Depression Screening 05/26/2021 05/26/2020 Diabetic Eye Exam 09/07/2021 09/07/2020 COVID-19 Vaccine ( season) 2023 06/12/2020, 2020 HbA1c 09/26/2023 03/28/2023, 06/05, 10/31/2021, Additional history exists Mammogram 09/27/2023 09/26/2022, 09/02, 06/14/2020, Additional history exists Diabetic Foot Exam 02/22/2024 02/21/2023, 0 11/02/2021, 04/18/2020 Albumin/Creatinine Ratio 03/28/2024 03/28/2023, 10/04 GFR 03/28/2024 03/28/2023, 06/05, 01/26/2021, Additional history [...] this encounter Medical Devices Implanted Type Area Sales Lead Generator Device Identifier Shelf Expiration Date Model / Serial / Lot Lens Li61ao 13.00mm 14.00 - [id number] - [id number] Implanted:Qty: 1 on 03/11/2023 by Norberto Clarke MD at OR [facility] Left: Eye [employer] 09/02/2027 [id number] / [id number] / [id number] Lens Li61ao 13.00mm 13.00 - [id number] - [id number] Implanted:Qty: 1 on 04/08/2023 by Norberto Clarke MD at OR [facility] Right: Eye [employer] 08/03/2027 [id number] / [id number] / [id number] documented as of this encounter Procedures Procedure Name Priority Date/Time Associated Diagnosis Comments GLUCOSE METER, POINT OF CARE ORQUIDEA 04/08/2023 7:09 AM EST documented in this encounter Results * (ABNORMAL) GLUCOSE METER, POINT OF CARE (04/08/2023 7:09 AM EST) Glucose Meter 156(H) 70 - 120 mg/dL 04/08/2023 7:14 AM EST [facility] Blood Whole blood specimen / Unknown 04/08/2023 7:09 AM EST 04/08/2023 7:14 AM EST Norberto Clarke MD LAB POINT OF C ARE TEST DOCKED DEVICE UNSOLICITED RESULTS [facility]00 [address] [facility] [place] [address] documented in this encounter Administered Medications Inactive Administered Medications - up to 3 most recent administrations Medication Order MAR Action Action Date Dose Rate Site Diclofenac Sodium (Voltaren) 0.1 % ophthalmic solution 1 Drop 1 Drop, Right eye, Q5 MINUTES, First dose on Fri04/08/23 at 0730, Last dose on Fri04/08/23 at 0740, For 3 doses, PRE-OP: One drop to right eye every 5 minutes for 3 doses, Pre-Op Given 04/08/2023 7:16 AM EST 1 Drop Given 04/08/2023 7:11 AM EST 1 Drop Given 04/08/2023 7:01 AM EST 1 Drop isolyte-S pH 7.4 infusion Intravenous, at 100 mL/hr, Plasma-LYTE 148, isolyte-S, and isolyte-S pH 7.4 are considered equivalent - including for MAR barcode scanning., CONTINUOUS, Starting on Fri04/08/23 at 0730, Until Fri04/08/23 at 1241, Pre-Op Continue from Pre-Op 04/08/2023 7:37 AM EST 100 mL/hr New Bag 04/08/2023 7:12 AM EST 100 mL/hr proparacaine (Alcaine) 0.5 % ophthalmic solution 1 Drop 1 Drop, Right eye, ONCE, On Fri04/08/23 at 0730, For 1 dose, PRE-OP: 15 minutes prior to scheduled surgery time for 1 dose, Pre-Op Given 04/08/2023 7:01 AM EST 1 Drop Trimethoprim-Polymyxin B (Polytrim) ophthalmic solution 1 Drop 1 Drop, Right eye, Q5 MINUTES, First dose on Fri04/08/23 at 0730, Last dose on Fri04/08/23 at 0740, For 3 doses, PRE-OP: One drop to right eye every 5 minutes for 3 doses, Pre-Op Given 04/08/2023 7:1 6 AM EST 1 Drop Given 04/08/2023 7:11 AM EST 1 Drop Given 04/08/2023 7:02 AM EST 1 Drop tropicamide 1%-cyclopentolate 1%-phenylephrine 2.5% ophthalmic solution 1 Drop 1 Drop, Right eye, Q5 MINUTES, First dose on Fri04/08/23 at 0730, Last dose on Fri04/08/23 at 0740, For 3 doses, Pre-Op Given 04/08/2023 7:16 AM EST 1 Drop Given 04/08/2023 7:11 AM EST 1 Drop Given 04/08/2023 7:01 AM EST 1 Drop documented in this encounter Active and Recently Administered Medications Times are shown in EST. Scheduled Medication Order 04/06/2023 04/07/2023 04/08/2023 Diclofenac Sodium (Voltaren) 0.1 % ophthalmic solution 1 Drop (COMPLETED) 1 Drop, Right eye, Q5 MINUTES, First dose on Fri04/08/23 at 0730, Last dose on Fri04/08/23 at 0740, For 3 doses, PRE-OP: One drop to right eye every 5 minutes for 3 doses, Pre-Op 0701 (Given - Provid er: Irma Rojas RN)0711 (Given - Provider: Irma Rojas RN)0716 (Given - Provider: Irma Rojas RN) proparacaine (Alcaine) 0.5 % ophthalmic solution 1 Drop (COMPLETED) 1 Drop, Right eye, ONCE, On Fri04/08/23 at 0730, For 1 dose, PRE-OP: 15 minutes prior to scheduled surgery time for 1 dose, Pre-Op 0701 (Given - Provid er: Irma Rojas RN) Trimethoprim-Polymyxin B (Polytrim) ophthalmic solution 1 Drop (COMPLETED) 1 Drop, Right eye, Q5 MINUTES, First dose on Fri04/08/23 at 0730, Last dose on Fri04/08/23 at 0740, For 3 doses, PRE-OP: One drop to right eye every 5 minutes for 3 doses, Pre-Op 0702 (Given - Provid er: Irma Rojas RN)0711 (Given - Provider: Irma Rojas RN)0716 (Given - Provider: Irma Rojas RN) tropicamide 1%-cyclopentolate 1%-phenylephrine 2.5% ophthalmic solution 1 Drop (COMPLETED) 1 Drop, Right eye, Q5 MINUTES, First dose on Fri04/08/23 at 0730, Last dose on Fri04/08/23 at 0740, For 3 doses, Pre-Op 0701 (Given - Provid er: Irma Rojas RN)0711 (Given - Provider: Irma Rojas RN)0716 (Given - Provider: Irma Rojas RN) Continuous Medication Order 04/06/2023 04/07/2023 04/08/2023 isolyte-S pH 7.4 infusion Intravenous, at 100 mL/hr, Plasma-LYTE 148, isolyte-S, and isolyte-S pH 7.4 are considered equivalent - including for MAR barcode scanning., CONTINUOUS, Starting on Fri04/08/23 at 0730, Until Fri04/08/23 at 1241, Pre-Op 0712 (New Bag - Prov ider: Irma Rojas RN)0737 (Continue from Pre-Op - Provider: Natalie Ng CRNA)0800 (Anes Intra-Op Fluid - Provider: Natalie Ng CRNA) PRN Medication Order 04/06/2023 04/07/2023 04/08/2023 balanced salt solution (Bss) ophthalmic solution (CANCELED) ONCE PRN INTRA PROCEDURE, Starting on Fri04/08/23 at 0753, Until Fri04/08/23 at 0800, Intra-Op 0753 (Given - Provid er: Norberto Clarke MD - Comment: qs) DUOVISC inj KIT (CANCELED) ONCE PRN INTRA PROCEDURE, Starting on Fri04/08/23 at 0753, Until Fri04/08/23 at 0800, Intra-Op 0753 (Given - Provid er: Norberto Clarke MD - Comment: qs) hydroxypropyl methylcellulose ([place]) 2 % intraocular inj (CANCELED) ONCE PRN INTRA PROCEDURE, Starting on Fri04/08/23 at 0753, Until Fri04/08/23 at 0800, Intra-Op 0753 (Given - Provid er: Norberto Clarke MD - Comment: qs) Lidocaine 1 % (PF) inj (CANCELED) ONCE PRN INTRA PROCEDURE, Starting on Fri04/08/23 at 0753, Until Fri04/08/23 at 0800, Intra-Op 0753 (Given - Provid er: Norberto Clarke MD - Comment: qs) Moxifloxacin intracameral inj (CANCELED) ONCE PRN INTRA PROCEDURE, Starting on Fri04/08/23 at 0753, Until Fri04/08/23 at 0800, Intra-Op 0753 (Given - Provid er: Norberto Clarke MD - Comment: qs) prednisoLONE Acetate (Pred Forte) 1 % ophthalmic suspension (CANCELED) ONCE PRN INTRA PROCEDURE, Starting on Fri04/08/23 at 0754, Until Fri04/08/23 at 0800, Intra-Op 0754 (Given - Provid er: Stephenie Toscano RN) Tetracaine (Pontocaine) 0.5 % ophthalmic solution (CANCELED) ONCE PRN INTRA PROCEDURE, Starting on Fri04/08/23 at 0746, Until Fri04/08/23 at 0800, Intra-Op 0746 (Given - Provid er: Marly Hills RN) documented in this encounter Advance Directives Latest Code Status on File Code Status Date Activated Date Inactivated Comments Full Code 04/08/2023 6:45 AM 04/08/2023 12:41 PM This order reflects the patients wishes and were consensually agreed upon. Question Answer Comments Discussion of Advance Directives occurred with: Patient Does the patient have a Living Will? No Does the patient have Health Care Power of Electrical Installation Inspector? No Code Status History Code Status Date Activated Date Inactivated Comments Full Code 03/11/2023 8:34 AM 03/11/2023 3:22 PM This order reflects the patients wishes and were consensually agreed upon. Question Answer Comments Discussion of Advance Directives occurred with: Patient Does the patient have a Living Will? No Does the patient have Health Care Power of Electrical Installation Inspector? No Care Teams Diamond Assorter Relationship Specialty Start Date End Date Bunny Peña MD [address] [place] [address] PCP - General Family Medicine 11/02/18 documented as of this encounter
--- OUTSIDE RECORDS SUMMARY | 2023-04-22 06:51 | External Medical Summary | Summary of Care ---
Author Name Unknown Organization [facility] Address [address] [place] [address] Phone [phone] Care Team Providers Care Finger Lift Operator Name Role Phone Bunny Peña MD Primary Care Provider [phone] Reason for Visit * Reason Onset Date Comments Pre-op Clearance 03/24/2023 Encounter Details Date Type Department Care Team (Late st Contact Info) Description 03/24/2023 Telephone Family Practice [facility] [address] [place] [address] Bety Calvin CRNP [address] [facility] [address] Pre-op Clearance Allergies Active Allergy Reactions Criticality Noted Date Comments Pollen 11/02/2018 Seasonal allergies Levofloxacin In D5w Rash High 11/02/2018 Pantoprazole 01/30/2021 Leg cramps documented as of this encounter (statuses as of 04/01/2023) Medications Medication Sig Dispensed Refills Start Date End Date Status Fluticasone Propionate 50 MCG/ACT Nasal Suspension Administer 1 [place] into nostril in the morning. 0 Active [...] 1 Drop before bedtime. 0 01/30/2023 Active Levothyroxine Sodium 150 MCG Oral Tablet (Synthroid) Take 1 Tablet by mouth in the morning. (at least 30 min prior to breakfast or other meds). 90 Tablet 3 08/07/2022 3 Discontinue d(Refill) Polymyxin B-Trimethoprim 23353-5.1 UNIT/ML-% Ophthalmic Solution (Polytrim) Instill 1 Drop into the left eye every 6 hours. 0 01/30/2023 3 Discontinue d(Medicatio n List Clean Up) documented as of this encounter (statuses as of 04/01/2023) Active Problems Problem Noted Date Diagnosed Date [...] as of this encounter (statuses as of 04/01/2023) Resolved Problems Problem Noted Date Diagnosed Date [...] as of this encounter (statuses as of 04/01/2023) Immunizations Name Administration Dates Next Due COVID-19 [...] encounter Miscellaneous Notes * Telephone Encounter - Ginny Murdock LPN - 04/01/2023 2:46 PM EST Pt ended up having new pre op with PCP * Telephone Encounter - Bety Calvin CRNP - 04/01/2023 12:44 PM EST Addendum signed -- please send addended note * Telephone Encounter - Elena Almeida MED ASSIST - 03/26/2023 9:13 AM EST Called and spoke to patient -- since her last visit there has been no new issues (ie: cardiopulmonary) or changes in medical history. Please addend note, if there are any questions that need further addressed by patient, or issues, just call and let her know. * Telephone Encounter - Bety Calvin CRNP - 03/24/2023 4:31 PM EST Please call patient and ask if any changes to her medical history or new cardiopulmonary symptoms. If not then we can addend her prior surgical clearance. * Telephone Encounter - Cierra Quiros OSA - 03/24/2023 1:38 PM EST Pt seen in the office for cataract pre op clearance on 02/21/2023 but that clearance will be over our 30 days allowed for her upcoming procedure on 04/08/2023. Is the provider willing to addend this office visit note (signature and current date) and clear the pt or will she need seen in the office?Thanks documented in this encounter Plan of Treatment Upcoming Encounters Date Type Department Care Team (Latest Contact Info) Description 04/08/2023 7:30 AM EST Hospital Encounter [facility] Operating [facility] [address] [place] [phone] Norberto Clarke MD [address] [address] 04/08/2023 7:30 AM EST - 04/08/2023 7:56 AM EST Surgery OR [facility], Operating Room [facility] [address] [place] [phone] Norberto Clarke MD [address] [place] [address] RIGHT EXTRACAPSULAR CATARACT REMOVAL WITH INTRAOCULAR LENS 06/06/2023 8:40 AM EST Office Visit Family Practice [facility] [address] [place] [address] Bunny Peña MD [address] [place] [place] [address] 09/30/2023 8:15 AM EDT Imaging Radiology [facility] 1st [facility] [address] [place] [address] 11/20/2023 8:20 AM EDT Office Visit [address] [address] Marian Gardner PA-C [address] [place] [address] [place] [address] Scheduled Procedures Name Priority Associated Diagnoses Date/Ti me EXTRACAPSULAR CATARACT REMOVAL WITH INTRAOCULAR LENS Combined forms of age-related cataract of right eye 04/08/2023 7:30 AM EST COLONOSCOPY FLEXIBLE PROXIMAL DIAGNOSTIC Recall [...] this encounter Medical Devices Implanted Type Area Radiology Interventional Physician Device Identifier Shelf Expiration Date Model / Serial / Lot Lens Li61ao 13.00mm 14.00 - [id number] - [id number] Implanted:Qty: 1 on 03/11/2023 by Norberto Clarke MD at OR [facility] Left: Eye [employer] 09/02/2027 [id number] / [id number] / [id number] documented as of this encounter Advance Directives [...] the patient have Health Care Power of Human Resources Specialist? No Care Teams Finger Lift Operator Relationship Specialty Start Date End Date Bunny Peña MD [address] [place] [address] PCP - General Family Medicine 11/02/18 documented as of this encounter
--- OUTSIDE RECORDS SUMMARY | 2023-04-22 06:52 | External Medical Summary | Summary of Care ---
Author Name Unknown Organization [facility] Address [address] [place] [address] Phone [phone] Care Team Providers Care Processing Operator Name Role Phone Bunny Peña MD Primary Care Provider [phone] Reason for Visit * Reason Comments Outpatient Testing Encounter Details Date Type Department Care Team (Late st Contact Info) Description 03/28/2023 2:00 PM EST Laboratory Laboratory, [facility] [address] [place] [address] [facility] [address] [place] [address] HTN, goal below 130/80; Acquired hypothyroidism; Pre-op evaluation; Type 2 diabetes mellitus without complication, without long-term current use of insulin ([facility]) Allergies Active Allergy Reactions Criticality Noted Date Comments Pollen 11/02/2018 Seasonal allergies Levofloxacin In D5w Rash High 11/02/2018 Pantoprazole 01/30/2021 Leg cramps documented as of this encounter (statuses as of 03/28/2023) Medications Medication Sig Dispensed Refills Start Date End Date Status Fluticasone Propionate 50 MCG/ACT Nasal Suspension Administer [address] into nostril in the morning. 0 Active [...] Tablet Take by mouth . 0 Active Levothyroxine Sodium 150 MCG Oral Tablet (Synthroid) Take 1 Tablet by mouth in the morning. (at least 30 min prior to breakfast or other meds). 90 Tablet 3 08/07/2022 Active glipiZIDE 5 MG Oral Tablet (Glucotrol) [...] 08/07/2022 Active Jardiance 25 MG Oral Tablet (Empagliflozin)Indic [...] by mouth in the morning. 0 Active documented as of this encounter (statuses as of 03/28/2023) Active Problems Problem Noted Date Diagnosed Date Food insecurity 12/16/2022 Overview: Per [facility] Protocol HERBERT (obstructive sleep apnea) 11/01/2021 H/O dysplastic nevus 10/03/2021 Overview: Mildly atypical nevus (L distal neck) Fibromyalgia 07/16/2019 HTN, goal below 130/80 04/16/2019 Type 2 diabetes mellitus wit h hemoglobin A1c goal of less than 8.0% 04/13/2019 Acquired hypothyroidism 11/02/2018 Dyslipidemia 11/02/2018 Gastroesophageal reflux disease with esophagitis 11/02/2018 Morbid obesity 11/02/2018 documented as of this encounter (statuses as of 03/28/2023) Resolved Problems Problem Noted Date Diagnosed Date Resolved Date Food insecurity 01/14/2022 06/19/2022 Overview: Per [facility] Protocol Obesity, Class II, BMI 35-39 .9, isolated (see actual BMI) 07/28/2021 03/05/2023 At risk for obstructive sleep apnea 07/28/2021 11/01/2021 Primary osteoarthritis of left knee 10/18/2019 11/02/2021 Recurrent major depressive d isorder, in partial remission 04/16/2019 11/02/2021 Chronic pain of left knee 11/02/2018 Impaired fasting glucose 11/02/201802/2019 documented as of this encounter (statuses as of 03/28/2023) Immunizations Name Administration Dates Next Due COVID-19 [...] on file documented as of this encounter Plan of Treatment Upcoming Encounters Date Type Department Care Team (Latest Contact Info) Description 04/08/2023 7:30 AM EST Hospital Encounter [facility] Room [facility] [address] [place] [phone] Norberto Clarke MD [address], [place] [address] 04/08/2023 7:30 AM EST - 04/08/2023 7:56 AM EST Surgery OR [facility], Operating Room [facility] [address] [place] [phone] Norberto Clarke MD [address] [place] [address] RIGHT EXTRACAPSULAR CATARACT REMOVAL WITH INTRAOCULAR LENS 09/30/2023 8:15 AM EDT Imaging Radiology [facility] 1st [facility] [address] [place] [address] 11/20/2023 8:20 AM EDT [facility] [address] [place] [address] Marian Gardner PA-C [address] [place] [address] [place] [address] Pending Results Name Type Priority Associated Diagnoses Date /Time COMPREHENSIVE METABOLIC PANEL Lab Routine HTN, goal below 130/80 03/28/2023 2:02 PM EST TSH WITH FREE T4 IF INDICATED Lab Routine Acquired hypothyroidism 03/28/2023 2:02 PM EST HEMOGLOBIN A1C Lab Routine Type 2 diabetes mellitus without complication, without long-term current use of insulin (HCC) 03/28/2023 2:02 PM EST ALBUMIN / CREATININE RATIO, URINE Lab Routine HTN, goal below 130/80 03/28/2023 2:04 PM EST Scheduled Procedures Name Priority Associated Diagnoses Date/Ti [...] 05/26/2021 05/26/2020 Diabetic Eye Exam 09/07/2021 09/07/2020 Albumin/Creatinine Ratio 10/31/2022 10/31/2021 HbA1c 12/18/2022 06/20/2022, 10/04, 01/26/2021, Additional history exists COVID-19 Vaccine ( season) 2023 06/12/2020, 2020 GFR 06/20/2023 06/20/2022, 01/04, 05/26/2020, Additional history exists TSH 06/20/2023 06/20/2022, 10/04, 05/26/2020, Additional history exists Mammogram 09/27/2023 09/26/2022, 09/02, 06/14/2020, Additional history exists Diabetic Foot Exam 02/22/2024 02/21/2023, 0 11/02/2021, 04/18/2020 Lipid Panel 10/31/2026 10/31/2021, 10/03, 04/10/2019 DTaP,Tdap,and [...] this encounter Medical Devices Implanted Type Area Oakes Machine Operator Device Identifier Shelf Expiration Date Model / Serial / Lot Lens Li61ao 13.00mm 14.00 - [id number] - [id number] Implanted:Qty: 1 on 03/11/2023 by Norberto Clarke MD at OR [facility] Left: Eye [employer]OM[employer] 09/02/2027 [id number] / [id number] / [id number] documented as of this encounter Procedures Procedure Name Priority Date/Time Associated Diagnosis Comments DIFFERENTIAL, AUTOMATED Routine 03/28/2023 2:02 PM EST Pre-op evaluation CBC Routine 03/28/2023 2:02 PM EST Pre-op evaluation CBC Routine 03/28/2023 2:02 PM EST Pre-op evaluation documented in this encounter Results * (ABNORMAL) DIFFERENTIAL, AUTOMATED (03/28/2023 2:02 PM EST) WBC 10.23 4.00 - 10.80 K/uL 03/28/2023 2:15 PM EST [facility] [place] [facility] Neutrophils % 51.7 40.0 - 75.0 % 03/28/2023 2:15 PM EST [facility] [place] [facility] Lymphocytes % 33.1 18.0 - 42.0 % 03/28/2023 2:15 PM EST [facility] [place] [facility] Monocytes % 11.4(H) 1.0 - 11.0 % 03/28/2023 2:15 PM EST [facility] [place] [facility] Eosinophils % 3.2 0.0 - 6.0 % 03/28/2023 2:15 PM EST [facility] [place] [facility] Basophils % 0.6 0.0 - 2.0 % 03/28/2023 2:15 PM EST [facility] [place] [facility] Absolute Neutrophils 5.28 1.80 - 7.70 K/uL 03/28/2023 2:15 PM EST [facility] [place] [facility] Absolute Lymphocytes 3.39 1.00 - 4.80 K/ul 03/28/2023 2:15 PM EST [facility] [place] [facility] Absolute Monocytes 1.17(H) 0.00 - 1.10 K/uL 03/28/2023 2:15 PM EST [facility] [place] [facility] Absolute Eosinophils 0.33 0.00 - 0.70 K/uL 03/28/2023 2:15 PM EST [facility] [place] [facility] Absolute Basophils 0.06 0.00 - 0.20 K/uL 03/28/2023 2:15 PM EST [facility] [place] [facility] Blood Venous blood specimen / Unknown Venipuncture / Unknown 03/28/2023 2:02 PM EST 03/28/2023 2:02 PM EST Bety HALEY LAB BLOOD ORDERABL ES [facility] [place] [facility] [place] [address] * (ABNORMAL) CBC (03/28/2023 2:02 PM EST) WBC 10.23 4.00 - 10.80 K/uL 03/28/2023 2:15 PM EST [facility] [place] [facility] RBC 4.99 3.85 - 5.15 M/uL 03/28/2023 2:15 PM EST [facility] [place] [facility] HGB 14.9 12.0 - 15.3 g/dL 03/28/2023 2:15 PM EST [facility] [place] [facility] HCT 46.1(H) 36.0 - 45.2 % 03/28/2023 2:15 PM EST [facility] [place] [facility] MCV 92.4 81.5 - 97.5 fL 03/28/2023 2:15 PM EST [facility] [place] [facility] MCH 29.9 27.0 - 34.0 pg 03/28/2023 2:15 PM EST [facility] [place] [facility] MCHC 32.3 32.0 - 36.0 g/dL 03/28/2023 2:15 PM EST [facility] [place] [facility] RDW 13.8 11.5 - 15.5 % 03/28/2023 2:15 PM EST [facility] [place] [facility] PLT 501(H) 140 - 400 K/uL 03/28/2023 2:15 PM EST [facility] [place] [facility] MPV 10.2 6.6 - 11.1 fL 03/28/2023 2:15 PM EST [facility] [place] [facility] Blood Venous blood specimen / Unknown Venipuncture / Unknown 03/28/2023 2:02 PM EST 03/28/2023 2:02 PM EST Bety HALEY LAB BLOOD ORDERABL ES [facility] [place] [facility] [address] [place] [address] documented in this encounter Visit Diagnoses Diagnosis HTN, goal below 130/80 Unspecified essential hypertension Acquired hypothyroidism Unspecified hypothyroidism Pre-op evaluation Preoperative examination, unspecified Type 2 diabetes mellitus without complication, without long-term current use of insulin (HCC) Combined forms of age-related cataract of right eye Other and combined forms of senile cataract documented in this encounter Advance Directives Latest Code Status on File Code Status Date Activated Date Inactivated Comments Full Code 03/11/2023 8:34 AM 03/11/2023 3:22 PM This order reflects the patients wishes and were consensually agreed upon. Question Answer Comments Discussion of Advance Directives occurred with: Patient Does the patient have a Living Will? No Does the patient have Health Care Power of Ethnic Origins Teacher? No Care Teams Processing Operator Relationship Specialty Start Date End Date Bunny Peña MD [address] [place] [address] PCP - General Family Medicine 11/02/18 documented as of this encounter
--- OUTSIDE RECORDS SUMMARY | 2023-04-22 06:52 | External Medical Summary ---
Author Name Unknown Address Unknown Organization [id number]:[facility] - [address] [place] [address] Laboratory Report Ordering Provider Test Date Status DIANA WELLS 03/28/2023 14:02:18 Final Observation Date Value Abnormality Reference (Units ) Status WBC, Total 03/28/2023 14:02:18 10.23 4.00-10.8 0 (K/uL) Final RBC 03/28/2023 14:02:18 4.99 3.85-5.15 (M/uL) Final Hemoglobin 03/28/2023 14:02:18 14.9 12.0-15.3 (g/dL) Final HCT 03/28/2023 14:02:18 46.1 Above high normal 36 .0-45.2 (%) Final MCV 03/28/2023 14:02:18 92.4 81.5-97.5 (fL) Final MCH 03/28/2023 14:02:18 29.9 27.0-34.0 (pg) Final MCHC 03/28/2023 14:02:18 32.3 32.0-36.0 (g/dL) Final RDW 03/28/2023 14:02:18 13.8 11.5-15.5 (%) Final Platelets 03/28/2023 14:02:18 501 Above high normal 14 0-400 (K/uL) Final MPV 03/28/2023 14:02:18 10.2 6.6-11.1 ( fL) Final Performing Location [facility] [address] - [address] [place] [address]
--- OUTSIDE RECORDS SUMMARY | 2023-04-22 06:52 | External Medical Summary ---
Author Name Unknown Address Unknown Organization [id number]:[facility] [place] - [address] [place] [address] Laboratory Report Ordering Provider Test Date Status DIANA WELLS 03/28/2023 14:02:18 Final Observation Date Value Abnormality Reference (Units ) Status HbA1C 03/28/2023 14:02:18 7.1 Above high normal 4. 0-5.6 (%) Final The use of HbA1c to monitor glycemic status is based on normal hemoglobin and HbA composition. This test should not be used in patients with abnormal hemoglobin that affects the half life of the red blood cell or the in vivo glycation rates. Glucose, estimated average 03/28/2023 14:02:18 157 Above high normal <126 (mg/dL) Alcides barrios Performing Location [facility] [place] - [address] [place] [address]
--- OUTSIDE RECORDS SUMMARY | 2023-04-22 06:52 | External Medical Summary ---
Author Name Unknown Address Unknown Organization [id number]:[facility] [place] [facility] [place] [address] Laboratory Report Ordering Provider Test Date Status DIANA WELLS 03/28/2023 14:04:17 Final Normal: <30 mg/g creatinine< br/>High: 30-300 mg/g creatinine
Very High: >300 mg/g creatinine
Nephrotic: >2200 mg/g creatinine Observation Date Value Abnormality Reference (Units ) Status Albumin, Urine 03/28/2023 14:04:17 <1.20 (mg/dL) Final Creatinine, Urine 03/28/2023 14:04:17 73 (mg/dL) Final Albumin/Creatinine [Mass Ratio] in Urine 03/28/2023 14:04:17 <16 <30 (mg/g Creat) Final Performing Location [facility] [place] - [address] [place] [address]
--- OUTSIDE RECORDS SUMMARY | 2023-04-22 06:52 | External Medical Summary | Summary of Care ---
Author Name Unknown Organization [facility] Address [address] [place] [address] Phone [phone] Care Team Providers Care Brim Raiser Name Role Phone Bunny Peña MD Primary Care Provider [phone] Reason for Visit * Reason Onset Date Comments pre-op exam EXTRACAPSULAR CA TARACT REMOVAL WITH INTRAOCULAR LENS-- 03/04 & 03/11 Medication Administration 02/21/2023 Flu an d/or Pneumo Inj Encounter Details Date Type Department Care Team (Late st Contact Info) Description 02/21/2023 10:00 AM EDT Office Visit Family Practice [facility] [address] [place] [address] Beyt Calvin CRNP [address] [facility] [place] [address] Pre-op evaluation*; Need for prophylactic vaccination and inoculation against influenza; DM type 2 nursing care encounter ([facility]); HERBERT (obstructive sleep apnea); Acquired hypothyroidism; HTN, goal below 130/80; Type 2 diabetes mellitus without complication, without long-term current use of insulin ([facility]); Dyslipidemia; Gastroesophageal reflux disease, unspecified whether esophagitis present Allergies Active Allergy Reactions Criticality Noted Date Comments Pollen 11/02/2018 Seasonal allergies Levofloxacin In D5w Rash High 11/02/2018 Pantoprazole 01/30/2021 Leg cramps documented as of this encounter (statuses as of 04/01/2023) Medications Medication Sig Dispensed Refills Start Date End Date Status Fluticasone Propionate 50 MCG/ACT Nasal Suspension Administer 1 [place] into nostril in the morning. 0 Active [...] Active Triamcinolone Acetonide 0.1 % External Ointment (Aristocort)Indicat [...] 3 08/07/2022 3 Discontinue d(Refill) Polymyxin B-Trimethoprim 86538-5.1 UNIT/ML-% Ophthalmic Solution (Polytrim) Instill 1 Drop [...] Frequency of Binge Drinking Not on file 0705/2018 PHQ-2 Answer Date Recorded PHQ Adult Total [...] Sign Reading Time Taken Comments Blood Pressure 124/78 02/21/2023 10:00 AM EDT Pulse 96 02/21/2023 10:00 AM EDT Temperature 36.9 C (98.4 F) 02/21/2023 1 0:00 AM EDT Respiratory Rate - - Oxygen Saturation 98% 02/21/2023 10: 00 AM EDT Inhaled Oxygen Concentration - - Weight 113.7 kg (250 lb 11.2 oz) 2022 10:00 AM EDT Height 167.6 cm (5' 6") 02/21/2023 10:0 0 AM EDT Body Mass Index 40.46 02/21/2023 10:00 AM EDT documented in this encounter Patient Instructions * Patient Instructions* Ginny Murdock LPN - 02/21/2023 10:12 AM EDT Diabetes: Keeping Feet Healthy Inspect your feet every day for signs of a problem. Diabetes can damage nerves in your feet and cause neuropathy. This condition makes it hard for you to feel injuries or sore spots. Diabetes can also change blood flow, making it harder for small problems, like a blister, to heal properly. In fact, minor injuries can quickly become serious infections that send you to the hospital. Practice self-care to protect your feet and keep them healthy. Take Special Care Inspect your feet daily for problems such as redness, blisters, cracks, dry skin, or numbness. Use a mirror to see the bottoms of your feet. Or, ask for help. Manage your diabetes. Monitor and control your blood sugar. Take all your medications as prescribed. Avoid walking barefoot, even indoors. Wash your feet with warm water and mild soap. Dry well, especially between toes. Dont treat corns or calluses yourself. Talk to your doctor or group leader (a doctor who specializes in foot care) if you need assistance trimming your toenails. Use moisturizing cream or lotion if you have dry skin, but dont use it between toes. Dont use heating pads on your feet. If you have neuropathy, you could get a burn and not feel it. Stop smoking. Smoking restricts blood flow and can make it harder for wounds to heal. Have Regular Checkups Foot problems can develop quickly. So be sure to follow your healthcare teams schedule for regular checkups. During office visits, take off your shoes and socks as soon as you get in the exam room. Ask your healthcare provider to examine your feet for problems. This will make it easier to find and treat small skin irritations before they get worse. Regular checkups can also help keep track of the blood flow and feeling in your feet. If you have neuropathy, you may need to have checkups more often. Wear Proper Footwear Wearing proper footwear is very important. If areas of your feet have been damaged by too much pressure, your healthcare provider may recommend changing your footwear. In some cases, avoiding high heels or tight work boots may be all thats needed. Or, your healthcare provider may recommend special shoes or custom inserts. These help protect your feet and keep existing irritations from getting worse. If you need special footwear, ask your healthcare provider if you qualify for [employer] diabetic shoe program. Make Sure Shoes and Socks Fit Any pair of shoes--new or old--should feel comfortable as soon as you put them on. There shouldnt be any rubbing when you walk. Wear the right shoe for any activity. For instance, a running shoe is designed to keep your feet injury-free while jogging. Buy shoes at the end of the day, when your feet are larger. Make sure they provide support without feeling too loose. Make sure your socks fit, t oo. Wear soft, seamless, well-padded socks for activity. Cotton or microfiber socks are best to help to absorb sweat. To protect your feet, avoid shoes that are open-toed or open-heeled. If you have questions about what kinds of shoes and socks are best, talk to your healthcare team. Get Regular Exercise Regular exercise improves blood flow in your feet. It also increases foot strength and flexibility.Gentle exercises, like walking or riding a stationary bicycle, are best. You can also do special foot exercises. Just be sure to talk with your healthcare provider before starting any exercise program. Also mention if any exercise causes pain, redness, or other signs of foot problems. Note: If you have any kind of break in the skin of your foot or ankle, keep the area clean. Then call your doctor--especially if the area doesnt appear to be healing. [phone] [employer], [address] [place] [address], [place] [address]. All rights reserved. This information is not intended as a substitute for professional medical care. Always follow your healthcare professional's instructions. documented in this encounter Progress Notes * Ginny Murdock LPN - 02/21/2023 10:08 AM EDT PRE - ADMINISTRATION DOCUMENTATION Are you experiencing any cold symptoms or fever? No Have you had Guillain-Richland Syndrome (an illness that causes paralysis) within the last 6 weeks? No Have you had the flu shot in the past? YES Have you ever had a reaction to the flu shot? No Ginny Murdock LPN, 02/21/2023 10:08 AM Immunization Administration Documentation Time Out Procedure Performed: Yes Patient Identified (Ask Name/Date of ): Yes Does the patient have a fever greater than 101 degrees today? No Patient allergic to latex? No VFC Stock: No Immunization(s) verified: Yes, Immunization Name: Flu, VIS Sheet(s) given: Yes Verified Side and Site: Yes Verified Shot(s) with Parent(s)/Patient: Yes DM Foot Exam completed today. Provider aware. Ginny Murdock LPN Socks and Shoes Removed for Annual Diabetic Foot Screening RIGHT FOOT: No Reddened, Cracking, Or Open Areas Noted. RIGHT Dorsalis Pedis Pulse: Palpable RIGHT Posterior Tibial Pulse: Palpable RIGHT Monofilament:Patient reports feeling monofilament pressure on plantar surface of foot LEFT FOOT: No Reddened, Cracking or Open Areas Noted. LEFT Dorsalis Pedis Pulse: Palpable LEFT Posterior Tibial Pulse: Palpable LEFT Monofilament:Patient reports feeling monofilament pressure on plantar surface of foot Do you need diabetic shoes: No documented in this encounter Procedure Notes * Storm Al DO - 02/21/2023 9:30 AM EDTAssociated Order(s): EKG REASON FOR STUDY: PRE OP CONCLUSIONS: Normal sinus rhythm Low voltage QRS, consider pulmonary disease, pericardial effusion, or normal variant Borderline ECG When compared with ECG of 02-NOV-2021 10:59, No significant change was found Ventricular Rate: 93 Atrial Rate: 93 [place] Interval: 180 QRS Duration: 90 QT/QTc: 358/445 ms P-R-T [place]: 54 : 21 : 48 degrees documented in this encounter Nursing Notes * Ginny Murdock LPN - 02/21/2023 10:06 AM EDT The patient has been properly identified by confirmation of name and date of . Chief Complaint Patient presents with pre-op exam EXTRACAPSULAR CATARACT REMOVAL WITH INTRAOCULAR LENS-- 03/04 & 03/11 Pt also has L knee replacement at [facility] with Dr. Pelayo on 04/22/2023. Thought she could use this appt to cover that. We have not received these in office. documented in this encounter Plan of Treatment Upcoming Encounters Date Type Department Care Team (Latest Contact Info) Description 04/08/2023 7:30 AM EST Hospital Encounter OR [facility], Operating Room [facility] [address] [place] [phone] Norberto Clarke MD [address] [address] 04/08/2023 7:30 AM EST - 04/08/2023 7:56 AM EST Surgery OR [facility], Operating Room [facility] [address] [place] [id number] Norberto Clarke MD [address] [place] [address] [place] [address] RIGHT EXTRACAPSULAR CATARACT REMOVAL WITH INTRAOCULAR LENS 06/06/2023 8:40 AM EST Office Visit Family Practice [facility] [address] [facility] [place] [address] Bunny Peña MD [address] [place] [address] 09/30/2023 8:15 AM EDT Imaging Radiology [facility] [address] [facility] [place] [address] 11/20/2023 8:20 AM EDT Office Visit Dermatology[address] [address] Marian Gardner PA-C [address] [place] [address] [place] [address] Scheduled Procedures Name Priority Associated Diagnoses Date/Ti [...] 0 11/02/2021, 04/18/2020 Albumin/Creatinine Ratio 03/28/2024 03/28/2023, 06/01/2022 GFR 03/28/2024 03/28/2023, 06/05, 01/26/2021, Additional history [...] this encounter Medical Devices Implanted Type Area Arc Air Operator Device Identifier Shelf Expiration Date Model / Serial / Lot Lens Li61ao 13.00mm 14.00 - [id number] - [id number] Implanted:Qty: 1 on 03/11/2023 by Norberto Clarke MD at OR [facility] Left: Eye BAUSCH & LOMB 09/02/2027 [id number] / [id number] / [id number] documented as of this encounter Procedures Procedure Name Priority Date/Time Associated Diagnosis Comments NV ECG ROUTINE ECG W/LEAST 12 LDS I&R ONLY Routine 02/21/2023 9:30 AM EDT Pre-op evaluation documented in this encounter Results * ALBUMIN / CREATININE RATIO, URINE (03/28/2023 2:04 PM EST) Albumin, Random Urine <1.20 mg/dL 03/28/2023 10:25 PM EST [facility] Creatinine, Random Urine 73 mg/dL 03/28/2023 10:25 PM EST [facility] Albumin / Creatinine Ratio, Urine <16 <30 mg/g Creat 03/28/2023 10:25 PM EST [facility] Urine Urine specimen obtained by clean catch procedure / Unknown Non-blood Collection / Unknown 03/28/2023 2:04 PM EST 03/28/2023 2:04 PM EST Narrative [facility] - 03/28/2023 10:25 PM EST Normal: <30 mg/g creatinine High: 30-300 mg/g creatinine Very High: >300 mg/g creatinine Nephrotic: >2200 mg/g creatinine Bety HALEY LAB URINE ORDERABL ES Performing Organization Address [facility] de Phone Number LAB[facility]ATORY [place] [address] [place] [address] * (ABNORMAL) HEMOGLOBIN A1C (03/28/2023 2:02 PM EST) Pathologist [facility] Hemoglobin A1C 7.1(H) 4.0 - 5.6 % 03/28/2023 10:24 PM EST [facility] Comment:The use of HbA1c to monitor glycemic status is based on normal hemoglobin and HbA composition. This test should not be used in patients with abnormal hemoglobin that affects the half life of the red blood cell or the in vivo glycation rates. Estimated Average Glucose 157(H) <126 mg/dL 03/28/2023 10:24 PM EST [facility] Blood Venous blood specimen / Unknown Venipuncture / Unknown 03/28/2023 2:02 PM EST 03/28/2023 2:02 PM EST Bety HALEY LAB BLOOD ORDERABL ES Performing Organization Address [facility] Co de Phone Number [facility]ORY [facility] [address] [place] [address] * (ABNORMAL) TSH WITH FREE T4 IF INDICATED (03/28/2023 2:02 PM EST) TSH 0.25(L) 0.27 - 4.20 uIU/mL 03/28/2023 10:29 PM EST [facility] Blood Venous blood specimen / Unknown Venipuncture / Unknown 03/28/2023 2:02 PM EST 03/28/2023 2:02 PM EST Bety Calvin TERA LAB BLOOD ORDERABL ES [facility] [address] [place] [address] * (ABNORMAL) COMPREHENSIVE METABOLIC PANEL (03/28/2023 2:02 PM EST) Pathologist [facility] BUN 16 6 - 20 mg/dL 03/28/2023 3:44 PM EST LABORATORY [place] [facility] Creatinine 0.9 0.5 - 1.0 mg/dL 03/28/2023 3:44 PM EST [facility] [place] [facility] Estimated Glomerular Filtration Rate 74 >=60 mL/min 03/28/2023 3:44 PM EST [facility] [place] [facility]10 Comment:eGFR is calculated b ased on the CKD-EPI 2020 equation Sodium 140 135 - 146 mmol/L 03/28/2023 3:44 PM EST [facility] [place] [facility] Potassium 4.5 3.5 - 5.1 mmol/L 03/28/2023 3:44 PM EST [facility] [place] [facility] Chloride 103 98 - 107 mmol/L 03/28/2023 3:44 PM EST [facility] [place] [facility] CO2 25 22 - 32 mmol/L 03/28/2023 3:44 PM EST [facility] [place] [facility] Anion Gap 12 7 - 15 mmol/L 03/28/2023 3:44 PM EST [facility] [place] [facility] Glucose 169(H) 70 - 120 mg/dL 03/28/2023 3:44 PM EST [facility] [place] [facility] Albumin 4.8 3.8 - 5.0 g/dL 03/28/2023 3:44 PM EST [facility] [place] [facility] AST 38(H) 10 - 35 U/L 03/28/2023 3:44 PM EST [facility] [place] [facility]10 Comment:Result may be falsel y elevated due to hemolysis. Alkaline Phosphatase 82 35 - 130 U/L 03/28/2023 3:44 PM EST [facility] [place] [facility] Bilirubin, Total 0.2 <=1.2 mg/dL 03/28/2023 3:44 PM EST [facility] [place] [facility] Calcium 10.3(H) 8.4 - 10.2 mg/dL 03/28/2023 3:44 PM EST [facility] [place] [facility] Protein 7.2 6.0 - 8.3 g/dL 03/28/2023 3:44 PM EST [facility] [place] [facility] ALT 47(H) 10 - 35 U/L 03/28/2023 3:44 PM EST [facility] [place] [facility]10 Blood Venous blood specimen / Unknown Venipuncture / Unknown 03/28/2023 2:02 PM EST 03/28/2023 2:02 PM EST Bety HALEY LAB BLOOD ORDERABL ES Performing Organization Address [facility]/ZIP Co de Phone Number LABORATORY [place] [address] [place] [phone] * EKG (02/21/2023 9:30 AM EDT) 02/21/2023 9:30 AM EDT Narrative Procedure Note Storm Al, DO - 02/21/2023 9:30 AM EDT REASON FOR STUDY: PRE OP CONCLUSIONS: Normal sinus rhythm Low voltage QRS, consider pulmonary disease, pericardial effusion, ornormal variant Borderline ECG When compared with ECG of 02-NOV-2021 10:59, No significant change was found Ventricular Rate: 93 Atrial Rate: 93 [place] Interval: 180 QRS Duration: 90 QT/QTc: 358/445 ms P-R-T [place]: 54 : 21 : 48 degrees Bety HALEY EKG [facility] documented in this encounter Visit Diagnoses Diagnosis Pre-op evaluation- Primary Preoperative examination, unspecified Need for prophylactic vaccination and inoculation against influenza DM type 2 nursing care encounter (HCC) Type II or unspecified type diabetes mellitus without mention of complication, not stated as uncontrolled HERBERT (obstructive sleep apnea) Obstructive sleep apnea (adult) (pediatric) Acquired hypothyroidism Unspecified hypothyroidism HTN, goal below 130/80 Unspecified essential hypertension Type 2 diabetes mellitus without complication, without long-term current use of insulin ([facility]) Dyslipidemia Other and unspecified hyperlipidemia Gastroesophageal reflux disease, unspecified whether esophagitis present 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 No Care Teams Brim Raiser Relationship Specialty Start Date End Date Bunny Peña MD [address] [place] [address] PCP - General Family Medicine 11/02/18 documented as of this encounter
--- OUTSIDE RECORDS SUMMARY | 2023-04-22 06:52 | External Medical Summary | Summary of Care ---
Author Name Unknown Organization [facility] Address [address] [place] [address] Phone [phone] Care Team Providers Care Crude Tester Name Role Phone Bunny Peña MD Primary Care Provider [phone] Reason for Visit * Reason Comments Re-Check Not a preop, wanted to follow up with PCP. Needs bw done, which is ordered. Encounter Details Date Type Department Care Team (Late st Contact Info) Description 03/28/2023 1:20 PM EST Office Visit Family Practice [facility] [address] [facility] [address] Bunny Peña MD [address] [place] [address] Preop examination*; Fibromyalgia; HTN, goal below 130/80; Morbid obesity (HCC); HERBERT (obstructive sleep apnea); Type 2 diabetes mellitus with hemoglobin A1c goal of less than 8.0% ([facility]); Gastroesophageal reflux disease with esophagitis without hemorrhage Allergies Active Allergy Reactions Criticality Noted Date Comments Pollen 11/02/2018 Seasonal allergies Levofloxacin In D5w Rash High 11/02/2018 Pantoprazole 01/30/2021 Leg cramps documented as of this encounter (statuses as of 03/28/2023) Medications Medication Sig Dispensed Refills Start Date End Date Status Fluticasone Propionate 50 MCG/ACT Nasal Suspension Administer 1 [place] into nostril in the morning. 0 Active B Complex Vitamins (B COMPLEX 50) TABS Take by mouth. 0 A ctive Cholecalciferol 50 MCG (1999) Oral Capsule Take 1 Capsule by mouth [...] by mouth in the morning. 0 Active Polymyxin B-Trimethoprim 11288-9.1 UNIT/ML-% Ophthalmic Solution (Polytrim) Instill 1 Drop [...] Sign Reading Time Taken Comments Blood Pressure 132/78 03/28/2023 1:21 PM EST Pulse 88 03/28/2023 1:21 PM EST Temperature - - Respiratory Rate - - Oxygen Saturation - - Inhaled Oxygen Concentration - - Weight 110.8 kg (244 lb 4 oz) 03/28/2023 1:21 PM EST Height - - Body Mass Index 39.42 03/11/2023 8:45 AM EST documented in this encounter Progress Notes * Bunny Peña MD - 03/28/2023 2:52 PM EST SUBJECTIVE: Dianne De Paz is a 67 [...] to change any medication as of today. Patient Active Problem List Diagnosis Code Acquired hypothyroidism E03.9 Dyslipidemia E78.5 Gastroesophageal reflux disease with esophagitis K21.00 Morbid obesity (HCC) E66.01 Type 2 diabetes mellitus with hemoglobin A1c goal of less than 8.0% (HCC) E11.9 HTN, goal below 130/80 I10 Fibromyalgia M79.7 H/O dysplastic nevus Z86.018 HERBERT (obstructive sleep apnea) G47.33 Current Outpatient Medications Medication Sig Dispense Refill Fluticasone Propionate 50 MCG/ACT Nasal Suspension Administer 1 [place] into nostril in the morning. B Complex [...] for Cough. 18 g 1 Move Free Joint [facility] Advance Oral Tablet Take by mouth [...] hemoglobin A1c goal of less than 8.0% ([facility]) Plan: continue rx (K21.00) Gastroesophageal reflux disease with esophagitis without hemorrhage Plan: quiescent Follow up as needed. No other complaints were offered at this time. Bunny Peña MD documented in this encounter Plan of Treatment Upcoming Encounters Date Type Department Care Team (Latest Contact Info) Description 04/08/2023 7:30 AM EST Hospital Encounter OR [facility], Operating Room [facility] [address] [place] [phone] Norberto Clarke MD [address] [address] 04/08/2023 7:30 AM EST - 04/08/2023 7:56 AM EST Surgery OR [facility], Operating Room OSS [address] [place] [address] Norberto Clarke MD [address] [address] RIGHT EXTRACAPSULAR CATARACT REMOVAL WITH INTRAOCULAR LENS 09/30/2023 8:15 AM EDT Imaging Radiology [address] [place] [address] 11/20/2023 8:20 AM EDT Office Visit Dermatology[address] [place] [address] Marian Gardner PA-C [address] [place] [address] [place] [address] Scheduled Procedures Name Priority Associated Diagnoses Date/Ti [...] 10/04, 01/26/2021, Additional history exists COVID-19 Vaccine () 01/03/2023 06/12/2020, 2020 GFR 06/20/2023 06/20/2022, 01/04, 05/26/2020, [...] this encounter Medical Devices Implanted Type Area Assembler Clip On Sunglasses Device Identifier Shelf Expiration Date Model / Serial / Lot Lens Li61ao 13.00mm 14.00 - [id number] - [id number] Implanted:Qty: 1 on 03/11/2023 by Norberto Clarke MD at OR [facility] Left: Eye BAUSCH & LOMB 09/02/2027 [id number] / [id number] / [id number] documented as of this encounter Visit Diagnoses Diagnosis Preop examination- Primary Preoperative examination, unspecified Fibromyalgia Mylagia and myositis, unspecified HTN, goal below 130/80 Unspecified essential hypertension Morbid obesity (HCC) Morbid obesity HERBERT (obstructive sleep apnea) Obstructive sleep apnea (adult) (pediatric) Type 2 diabetes mellitus with hemoglobin A1c goal of less than 8.0% (HCC) Gastroesophageal reflux disease with esophagitis without hemorrhage 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 No Care Teams Crude Tester Relationship Specialty Start Date End Date Bunny Peña MD [address] [place] [address] PCP - General Family Medicine 11/02/18 documented as of this encounter"
--- OUTSIDE RECORDS SUMMARY | 2023-04-22 06:52 | External Medical Summary ---
Author Name Unknown Address Unknown Organization [id number]:LABORATORY [facility] - [address] [facility] [place] [place], [place] [address] Laboratory Report Ordering Provider Test Date Status DIANA WELLS 03/28/2023 14:02:18 Final Observation Date Value Abnormality Reference (Units ) Status TSH 03/28/2023 14:02:18 0.25 Below low normal 0.2 7-4.20 (uIU/mL) Final Performing Location [facility] [address] [facility] [address]
--- OUTSIDE RECORDS SUMMARY | 2023-04-22 06:52 | External Medical Summary ---
Author Name Unknown Address Unknown Organization [id number]:[facility] - [address] [place] [address] Laboratory Report Ordering Provider Test Date Status PRISCILLALUIGIISAAK 03/28/2023 14:02:18 Final Observation Date Value Abnormality Reference (Units ) Status T4, Free 03/28/2023 14:02:18 2.0 Above high normal 0. 9-1.7 (ng/dL) Final Performing Location [facility] - [address] [place] [address]
--- OUTSIDE RECORDS SUMMARY | 2023-04-22 06:52 | External Medical Summary | Summary of Care ---
Author Name Unknown Organization [facility] Address [address] [place] [address] Phone [phone] Care Team Providers Care Grit Removal Operator Name Role Phone Bunny Peña MD Primary Care Provider +1 [phone] Encounter Details Date Type Department Care Team (Late st Contact Info) Description 03/31/2023 Telephone [facility] Practice [facility] [address] [facility] [address] Bety Calvin CRNP [address] [facility] [place] [address] Allergies Active Allergy Reactions Criticality Noted Date Comments Pollen 11/02/2018 Seasonal allergies Levofloxacin In D5w Rash High 11/02/2018 Pantoprazole 01/30/2021 Leg cramps documented as of this encounter (statuses as of 03/31/2023) Medications Medication Sig Dispensed Refills Start Date End Date Status Fluticasone Propionate 50 MCG/ACT Nasal Suspension Administer 1 [place] into nostril in the morning. 0 Active [...] as of this encounter (statuses as of 03/31/2023) Active Problems Problem Noted Date Diagnosed Date [...] as of this encounter (statuses as of 03/31/2023) Resolved Problems Problem Noted Date Diagnosed Date [...] as of this encounter (statuses as of 03/31/2023) Immunizations Name Administration Dates Next Due COVID-19 [...] Telephone Encounter - Ginny Murdock LPN - 03/31/2023 11:19 AM EST Called pt-- she states she will get Rx today. She discuss with dr peña at their visit she will start new dose after surgery. Pt will then get updated labs in 6-8 weeks. * Telephone Encounter - Bety Calvin CRNP - 03/31/2023 10:56 AM EST Thyroid hormone elevated -- recommend reducing dose to 125mcg. New rx sent to [facility]. Will need to recheck in 6-8weeks. Order placed. Liver enzymes and calcium slightly elevated. Recommend rechecking these when she gets her thyroid checked in 6-8 weeks. documented in this encounter Plan of Treatment Upcoming Encounters Date Type Department Care Team (Latest Contact Info) Description 04/08/2023 7:30 AM EST Hospital Encounter [facility], Operating Room [facility] [address] [place] [address] Norberto Clarke MD [address] [address] 04/08/2023 7:30 AM EST - 04/08/2023 7:56 AM EST Surgery [facility], Operating Room [facility] [address] [place] [address] Norberto Clarke MD [address] [place] [address] [place] [address] RIGHT EXTRACAPSULAR CATARACT REMOVAL WITH INTRAOCULAR LENS 06/10/2023 8:20 AM EST Office Visit Family Practice [facility] [address] [place] [address] Bunny Peña MD [address] [place] [address] 09/30/2023 8:15 AM EDT Imaging Radiology [address] [place] [address] 11/20/2023 8:20 AM EDT Office Visit Dermatology[address] [address] Marian Gardner PA-C [address] [place] [address] [place] [address] Scheduled Orders Name Type Priority Associated Diagnoses Orde r Schedule TSH WITH FREE T4 IF INDICATED Lab Routine Acquired hypothyroidism Expected: 04/30/2023 (Approximate), Expires: 03/30/2024 COMPREHENSIVE METABOLIC PANEL Lab Routine Hypercalcemia Expected: 04/30/2023 (Approximate), Expires: 03/30/2024 Scheduled Procedures Name Priority Associated Diagnoses Date/Ti [...] this encounter Medical Devices Implanted Type Area Buyer Intern Device Identifier Shelf Expiration Date Model / Serial / Lot Lens Li61ao 13.00mm 14.00 - [id number] - [id number] Implanted:Qty: 1 on 03/11/2023 by Norberto Clarke MD at OR [facility] Left: Eye [employer] LOMB 09/02/2027 [id number] / [id number] / [id number] documented as of this encounter Visit Diagnoses Diagnosis Acquired hypothyroidism- Primary Unspecified hypothyroidism Hypercalcemia Combined forms of age-related cataract of right [...] the patient have Health Care Power of Salt Washer? No Care Teams Grit Removal Operator Relationship Specialty Start Date End Date Bunny Peña MD [address] [place] [address] PCP - General Family Medicine 11/02/18 documented as of this encounter
--- OUTSIDE RECORDS SUMMARY | 2023-04-22 06:52 | External Medical Summary ---
Author Name Unknown Address Unknown Organization [facility] [address] [place] [address] Laboratory Report Ordering Provider Test Date Status DIANA WELLS 03/28/2023 14:02:18 Final Observation Date Value Abnormality Reference (Units ) Status BUN 03/28/2023 14:02:18 16 6-20 (mg/dL) Final Creatinine 03/28/2023 14:02:18 0.9 0.5-1.0 (mg/dL) Final Glomerular filtration rate/1.73 sq M.predicted [Volume Rate/Area] in Serum, Plasma or Blood by Creatinine-based formula (CKD-EPI) 03/28/2023 14:02:18 74 >=60 (mL/min) Final eGFR is calculated based on the CKD-EPI 2020 equation SODIUM 03/28/2023 14:02:18 140 135-146 (m mol/L) Final Potassium 03/28/2023 14:02:18 4.5 3.5-5.1 (m mol/L) Final Cl 03/28/2023 14:02:18 103 98-107 (mm ol/L) Final CO2 03/28/2023 14:02:18 25 22-32 (mmo l/L) Final Anion gap 03/28/2023 14:02:18 12 7-15 (mmol /L) Final Glucose 03/28/2023 14:02:18 169 Above high normal 70 -120 (mg/dL) Final Albumin 03/28/2023 14:02:18 4.8 3.8-5.0 (g /dL) Final AST (Aspartate aminotransferase) 03/28/2023 14:02:18 38 Above high normal 10-35 (U/L) Final Result may be falsely elevat ed due to hemolysis. Alk Phos 03/28/2023 14:02:18 82 35-130 (U/ L) Final Bilirubin, Total 03/28/2023 14:02:18 0.2 <=1 .2 (mg/dL) Final Calcium 03/28/2023 14:02:18 10.3 Above high normal 8. 4-10.2 (mg/dL) Final Protein 03/28/2023 14:02:18 7.2 6.0-8.3 (g /dL) Final ALT (Alanine aminotransferase) 03/28/2023 14:02:18 47 Above high normal 10-35 (U/L) Final Performing Location [facility] [place] [address] [facility] [address]
--- OUTSIDE RECORDS SUMMARY | 2023-04-22 06:52 | External Medical Summary ---
Author Name Unknown Address Unknown Organization [facility] [address] [place] [address] Laboratory Report Ordering Provider Test Date Status DIANA WELLS 03/28/2023 14:02:18 Final Observation Date Value Abnormality Reference (Units ) Status SYNC LEUKOCYTES IN BLOOD BY AUTOMATED COUNT 03/28/2023 14:02:18 10.23 4.00-10.80 (K/uL) Final Segs 03/28/2023 14:02:18 51.7 40.0-75.0 (%) Final Lymphs % 03/28/2023 14:02:18 33.1 18.0-42.0 (%) Final Monos 03/28/2023 14:02:18 11.4 Above high normal 1.0-11.0 (%) Final Eosinophils 03/28/2023 14:02:18 3.2 0.0-6.0 (%) Final Basos 03/28/2023 14:02:18 0.6 0.0-2.0 (%) Final Absolute Segs 03/28/2023 14:02:18 5.28 1.80-7.70 (K/uL) Final Lymphs, absolute 03/28/2023 14:02:18 3.39 1.00-4.80 (K/ul) Final Monos, Abs 03/28/2023 14:02:18 1.17 Above high normal 0.00-1.10 (K/uL) Final Eos, Abs 03/28/2023 14:02:18 0.33 0.00-0.70 (K/uL) Final Basos, Abs 03/28/2023 14:02:18 0.06 0.00-0.20 (K/uL) Final Performing Location [facility] [address] [place] [address]
--- OUTSIDE RECORDS SUMMARY | 2023-04-22 06:53 | External Medical Summary | Summary of Care ---
Author Name Unknown Organization [facility] Address [address] [place] [address] Phone [phone] Care Team Providers Care Weather Algorithm Scientist Name Role Phone Bunny Peña MD Primary Care Provider [phone] [phone] Encounter Details Date Type Department Care Team (Late st Contact Info) Description 03/17/2023 Telephone Pulmonary Medicine, [facility] [address] [place] [address] Sophy Duffy, [address] [place] [address] Allergies Active Allergy Reactions Criticality Noted Date Comments Pollen 11/02/2018 Seasonal allergies Levofloxacin In D5w Rash High 11/02/2018 Pantoprazole 01/30/2021 Leg cramps documented as of this encounter (statuses as of 03/17/2023) Medications Medication Sig Dispensed Refills Start Date End Date Status Fluticasone Propionate 50 MCG/ACT Nasal Suspension Administer 1 [place] into nostril in the morning. 0 Active [...] until resolved 30 g 0 08/29/2020 Active Additional Information Patient not taking.Reported on 03/06/2023 Albuterol Sulfate HFA 108 (90 Base) MCG/ACT Inhalation Aerosol SolutionIndications: Suspected COVID-19 virus infection Inhale 2 Puffs by mouth every 6 hours as needed for Cough. 18 g 1 05/25/2021 Active Additional Information Patient not taking.Reported on 02/27/2023 Move [facility] Advance Oral Tablet Take by mouth [...] 1 Drop before bedtime. 0 01/31/2023 Active Polymyxin B-Trimethoprim 16971-8.1 UNIT/ML-% Ophthalmic Solution (Polytrim) Instill 1 Drop into the left eye every 6 hours. 0 01/30/2023 Active prednisoLONE Acetate 1 % Ophthalmic Suspension (Pred Forte) Instill 1 Drop into the left eye in the morning and 1 Drop at noon and 1 Drop in the evening and 1 Drop before bedtime. 0 01/30/2023 Active documented as of this encounter (statuses as of 03/17/2023) Active Problems Problem Noted Date Diagnosed Date Food insecurity 12/16/2022 Overview: Per [facility] Protocol HERBERT (obstructive sleep apnea) 11/01/2021 H/O dysplastic nevus 10/03/2021 Overview: Mildly atypical nevus (L distal neck) Fibromyalgia 07/16/2019 HTN, goal below 130/80 04/16/2019 Type 2 diabetes mellitus wit h hemoglobin A1c goal of less than 8.0% 04/13/2019 Acquired hypothyroidism 11/02/2018 Dyslipidemia 11/02/2018 Gastroesophageal reflux disease with esophagitis 11/02/2018 Morbid obesity 11/02/2018 documented as of this encounter (statuses as of 03/17/2023) Resolved Problems Problem Noted Date Diagnosed Date Resolved Date Food insecurity 01/14/2022 06/19/2022 Overview: [facility] [...] as of this encounter (statuses as of 03/17/2023) Immunizations Name Administration Dates Next Due COVID-19 [...] encounter Miscellaneous Notes * Telephone Encounter - Matthew Perez - 03/17/2023 2:11 PM EST Per TH the patient needs updated office note. documented in this encounter Plan of Treatment Upcoming Encounters Date Type Department Care Team (Latest Contact Info) Description 03/21/2023 2:30 PM EST Telemedicine Sleep Disorders, [facility] [address] [place] [address] Cornelius Echavarria PA-C [address] [place] [id number] 04/08/2023 7:30 AM EST Hospital Encounter [facility], Operating Room [facility] [address] [place] [address] Norberto Clarke MD [address] [place] [address], [place] [address] 04/08/2023 7:30 AM EST - 04/08/2023 7:56 AM EST Surgery [facility], Operating Room [facility] 132 [facility] [place] [place] [phone] Norberto Clarke MD [address] [place] [address], [place] [address] RIGHT EXTRACAPSULAR CATARACT REMOVAL WITH INTRAOCULAR LENS 04/16/2023 8:20 AM EST Office Visit Family Practice [facility] [address] [place] [address] Bunny Peña MD 132 [facility] [place] [address] 09/30/2023 8:15 AM EDT Imaging Radiology [address] 132 [facility] [place] [address] 11/20/2023 8:20 AM EDT Office Visit Dermatology[address] [address] Marian Gardner, SHANE [address] [place] [address] [place] [address] Scheduled Procedures Name Priority Associated Diagnoses Date/Ti [...] this encounter Medical Devices Implanted Type Area Software Test Engineer Device Identifier Shelf Expiration Date Model / Serial / Lot Lens Li61ao 13.00mm 14.00 - [id number] - [id number] Implanted:Qty: 1 on 03/11/2023 by VinceNorberto alvarez MD at OR [facility] Left: Eye [employer] LOMB 09/02/2027 [id number] / [id number] / [id number] documented as of this encounter Advance Directives [...] the patient have Health Care Power of Refinery Operator Gas Plant? No Care Teams Weather Algorithm Scientist Relationship Specialty Start Date End Date Bunny Peña MD [address] [place] [address] PCP - General Family Medicine 11/02/18 documented as of this encounter
--- OUTSIDE RECORDS SUMMARY | 2023-04-22 06:53 | External Medical Summary | Summary of Care ---
Author Name Unknown Organization [facility] Address [address] [place] [address] Phone [phone] Care Team Providers Care Breading Machine Tender Name Role Phone Bunny Peña MD Primary Care Provider +1 [phone] Reason for Visit * Reason Onset Date Comments pre-op exam EXTRACAPSULAR CA TARACT REMOVAL WITH INTRAOCULAR LENS-- 03/04 & 03/11 Medication Administration 02/21/2023 Flu an d/or Pneumo Inj Encounter Details Date Type Department Care Team Description 02/21/2023 Office Visit Family Practice [facility] [address] [place] [address] Bety Calvin CRNP [address] [facility] [address] Pre-op evaluation*; Need for prophylactic vaccination and inoculation against influenza; DM type 2 nursing care encounter ([facility]); HERBERT (obstructive sleep apnea); Acquired hypothyroidism; HTN, goal below 130/80; Type 2 diabetes mellitus without complication, without long-term current use of insulin ([facility]); Dyslipidemia; Gastroesophageal reflux disease, unspecified whether esophagitis present Allergies Active Allergy Reactions Severity Noted Date Comments Pollen 11/02/2018 Seasonal allergies Levofloxacin In D5w Rash High 11/02/2018 Pantoprazole 01/30/2021 Leg cramps documented as of this encounter (statuses as of 02/21/2023) Medications Medication Sig Dispensed Refills Start Date End Date Status Fluticasone Propionate 50 MCG/ACT Nasal Suspension Administer 1 [place] into nostril in the morning. 0 Active [...] before bedtime. 0 01/31/2023 Active Polymyxin B-Trimethoprim 64295-3.1 UNIT/ML-% Ophthalmic Solution (Polytrim) Instill 1 Drop into the left eye every 6 hours. 0 01/30/2023 Active prednisoLONE Acetate 1 % Ophthalmic Suspension (Pred Forte) Instill 1 Drop into the left eye in the morning and 1 Drop at noon and 1 Drop in the evening and 1 Drop before bedtime. 0 01/30/2023 Active documented as of this encounter (statuses as of 02/21/2023) Active Problems Problem Noted Date Food insecurity 12/16/2022 Overview: Per [facility] Protocol HERBERT (obstructive sleep apnea) 11/01/2021 H/O dysplastic nevus 10/03/2021 Overview: Mildly atypical nevus (L distal neck) Obesity, Class II, BMI 35-39.9, isolated (see actual BMI) 07/28/2021 Fibromyalgia 07/16/2019 HTN, goal below 130/80 04/16/2019 Type 2 diabetes mellitus with hemoglobin A1c goal of less than 8.0% 04/13/2019 Acquired hypothyroidism 11/02/2018 Dyslipidemia 11/02/2018 Gastroesophageal reflux disease with eso phagitis 11/02/2018 documented as of this encounter (statuses as of 02/21/2023) Resolved Problems Problem Noted Date Resolved Date Food insecurity 01/14/2022 06/19/2022 Overview: Per [facility] Protocol At risk for obstructive sleep apnea 07/28/2021 11/01/2021 Primary osteoarthritis of left knee 10/18/2019 11/02/2021 Recurrent major depressive disorder, in partial remission 04/16/2019 11/02/2021 Chronic pain of left knee 11/02/20182019 Morbid obesity due to excess calories 11/02/2018 07/28/2021 Impaired fasting glucose 11/02/2018 019 documented as of this encounter (statuses as of 02/21/2023) Immunizations Name Administration Dates Next Due COVID-19 [...] drink = 0.6 oz pur e alcohol) Alcohol Habits Answer Date Recorded How often do you have a drink containing alcohol ? Never 11/02/2018 How many drinks containing a lcohol do you have on a typical day when you are drinking? Not asked How often do you have six or more drinks on one occasion? Not asked Food Insecurity Answer Date Recorded Within the past 12 months, y ou worried that your food would run out before you got money to buy more. Often true 2022 Within the past 12 months, t he food you bought just didn't last and you didn't have money to get more. Sometimes true Sex Assigned at Date Recorded Female 09/25/2021 10:03 AM EDT Job Start Date Occupation Industry [...] encounter Patient Instructions * Patient Instructions* Ginny Murdock, CHARGER - 02/21/2023 10:12 AM EDT Diabetes: Keeping [...] calluses yourself. Talk to your doctor or wind farm operations manager (a doctor who specializes in foot care) [...] the area doesnt appear to be healing. [id number] [employer], [address] [place] [address], [place] [address]. All rights reserved. This information is not intended as a substitute for professional medical care. Always follow your healthcare professional's instructions. documented in this encounter Progress Notes * Ginny Murdock LPN - 02/21/2023 10:08 AM EDT PRE - ADMINISTRATION DOCUMENTATION Are you experiencing any cold symptoms or fever? No Have you had Guillain-Corea Syndrome (an illness that causes paralysis) within [...] diabetic shoes: No documented in this encounter Nursing Notes * Ginny Murdock LPN - 02/21/2023 10:06 AM EDT The patient has been properly identified by confirmation of name and date of . Chief Complaint Patient presents with pre-op exam EXTRACAPSULAR CATARACT REMOVAL WITH INTRAOCULAR LENS-- 03/04 & 03/11 Pt also has L knee replacement at [facility] with Dr. Pelayo on 04/22/2023. Thought she could use this appt to cover that. We have not received these in office. documented in this encounter Plan of Treatment Upcoming Encounters Date Type Specialty Care Team Description 03/04/2023 Hospital Encounter Surgery Norberto Clarke MD [address] [address] 03/04/2023 Surgery Surgery Norberto Clarke MD [address] [address] LEFT EXTRACAPSULAR CATARACT REMOVAL WITH INTRAOCULAR LENS 03/11/2023 Hospital Encounter Surgery Norberto Clarke MD [address] [address] 03/11/2023 Surgery Surgery Norberto Clarke MD [address] [address] RIGHT EXTRACAPSULAR CATARACT REMOVAL WITH INTRAOCULAR LENS 04/16/2023 Office Visit Family Medicine Bunny Peña MD [address] [place] [address] 09/30/2023 Imaging Radiology 11/20/2023 Office Visit Dermatology Marian Gardner PA-C [address] [place] [address] [place] [address] Scheduled Orders Name Type Priority Associated Diagnoses Orde r Schedule EKG EKG Routine Pre-op evaluation Ordered: 02/21/2023 COMPREHENSIVE METABOLIC PANEL Lab Routine HTN, goal below 130/80 Expected: 02/21/2023 (Approximate), Expires: 02/21/2024 TSH WITH FREE T4 IF INDICATED Lab Routine Acquired hypothyroidism Expected: 02/21/2023 (Approximate), Expires: 02/21/2024 CBC WITH WBC DIFFERENTIAL Lab Routine Pre-op evaluation Expected: 02/21/2023 (Approximate), Expires: 02/22/2024 HEMOGLOBIN A1C Lab Routine Type 2 diabetes mellitus without complication, without long-term current use of insulin (HCC) Expected: 02/21/2023 (Approximate), Expires: 02/21/2024 ALBUMIN / CREATININE RATIO, URINE Lab Routine HTN, goal below 130/80 Expected: 02/21/2023 (Approximate), Expires: 02/21/2024 Scheduled Procedures Name Priority Associated Diagnoses Date/Ti me EXTRACAPSULAR CATARACT REMOVAL WITH INTRAOCULAR LENS Combined forms of age-related cataract of left eye 03/04/2023 9:30 AM EDT EXTRACAPSULAR CATARACT REMOVAL WITH INTRAOCULAR LENS Combined forms of age-related cataract of right eye 03/11/2023 7:30 AM EST COLONOSCOPY FLEXIBLE PROXIMAL DIAGNOSTIC Recall History of adenomatous polyp of colon Health Maintenance Due Date Last Done Comments Hepatitis C Screening 1974 Cologuard 2001 Fecal Occult Blood Test 2001 Sigmoidoscopy 2001 Depression Screening 05/26/2021 05/26/2020 DIABETES-EYE EXAM 09/07/2021 09/07/2020 Albumin/Creatinine Ratio 10/31/2022 10/31/2021 HbA1c [...] on patient's age to complete this topic Hepatitis B Aged Out No longer eligi ble based on patient's age to complete this topic MENINGOCOCCAL (MENACTRA/MENVEO) Aged Out No longer eligible based on patient's age to complete this topic documented as of this encounter Medical Devices Not on filedocumented as of this encounter Visit Diagnoses Diagnosis Pre-op evaluation- [...] without long-term current use of insulin (HCC) Dyslipidemia Other and unspecified hyperlipidemia Gastroesophageal reflux disease, unspecified whether esophagitis present Combined forms of age-related cataract of left eye Other and combined forms of senile cataract Combined forms of age-related cataract of right eye Other and combined forms of senile cataract documented in this encounter Care Teams Breading Machine Tender Relationship Specialty Start Date End Date Bunny Peña MD [address] [place] [address] PCP - General Family Medicine 11/02/18 documented as of this encounter
--- OUTSIDE RECORDS SUMMARY | 2023-04-22 06:53 | External Medical Summary | Summary of Care ---
Author Name Unknown Organization [facility] Address [address] [place] [address] Phone [phone] Care Team Providers Care Culled Fruit Packer Name Role Phone Bunny Peña MD Primary Care Provider [phone] Encounter Details Date Type Department Care Team (Late st Contact Info) Description 03/19/2023 10:40 AM EST Telemedicine Sleep Disorders Ctr [facility] [address] [place] [phone] Sophy Duffy DO [address] [place] [address] Obstructive sleep apnea*; Nocturnal hypoxemia; HTN, goal below 130/80; Fatigue, unspecified type Allergies Active Allergy Reactions Criticality Noted Date Comments Pollen 11/02/2018 Seasonal allergies Levofloxacin In D5w Rash High 11/02/2018 Pantoprazole 01/30/2021 Leg cramps documented as of this encounter (statuses as of 03/19/2023) Medications Medication Sig Dispensed Refills Start Date End Date Status Fluticasone Propionate 50 MCG/ACT Nasal Suspension Administer 1 [place] into nostril in the morning. 0 Active [...] Additional Information Patient not taking.Reported on 02/27/2023 [facility] Advance Oral Tablet Take by [...] before bedtime. 0 01/31/2023 Active Polymyxin B-Trimethoprim 36865-0.1 UNIT/ML-% Ophthalmic Solution (Polytrim) Instill 1 Drop into the left eye every 6 hours. 0 01/30/2023 Active prednisoLONE Acetate 1 % Ophthalmic Suspension (Pred Forte) Instill 1 Drop into the left eye in the morning and 1 Drop at noon and 1 Drop in the evening and 1 Drop before bedtime. 0 01/30/2023 Active documented as of this encounter (statuses as of 03/19/2023) Active Problems Problem Noted Date Diagnosed Date [...] as of this encounter (statuses as of 03/19/2023) Resolved Problems Problem Noted Date Diagnosed Date [...] as of this encounter (statuses as of 03/19/2023) Immunizations Name Administration Dates Next Due COVID-19 [...] on file documented as of this encounter Patient Instructions * Patient Instructions* Sophy Duffy, - 03/19/2023 11:05 AM EST New CPAP: - The medical supply company will contact you to schedule set-up. (You may also hear from a group called [employer], which coordinates with the local medical supply companies.) - They will fit you with a mask and provide the machine and all supplies, and go over how to use, clean, etc. You will need to clean and replace supplies as directed by the medical supply company. - Once you have CPAP, use it whenever sleeping. Minimum usage requirements for insurance purposes are at least 4 hours per day, on at least 70% of days. Per Medicare criteria, you need to meet that for a 30-day period within the first 90 days that you have the CPAP. - We will plan a follow up appointment for at least 30 days after you start using CPAP. We will seehow you are doing with the CPAP, and review data from your machine that tells us how long you are using it each day, as well as how well it is working to treat your sleep apnea (the CPAP machine keeps track of the number of pauses in breathing while you are wearing it). Depending on how things lookat that point, we may adjust settings to help the CPAP be more comfortable or work the best for you. Additional Recommendations for sleep apnea: - Plan to get enough sleep at night (most adults do best with 7-8 hours a night), and use your CPAP(once you have it) whenever sleeping. - Exercise daily. Aim for 30 minutes per day of moderate-intensity exercise (enough to get your heart rate up and break out into a light sweat). - Losing weight can reduce the severity of sleep apnea, and may reduce the pressure of CPAP that isneeded to treat your sleep apnea. - Avoid substances that suppress the central nervous system or the drive to breathe. This includes opiate pain medicines and excessive alcohol. - Don't drive when you are sleepy/drowsy! If you become drowsy while driving, chute puller, take a quick nap or get some caffeine, or get someone else to drive. documented in this encounter Progress Notes * Sophy Duffy DO - 03/19/2023 10:39 AM EST Sleep Medicine Follow-Up Patient location: HOME. I was in a hospital or clinic location. After connecting through [employer],patient was verified with two unique identifiers. Patient (or authorized legal lifeline representatives) was then informed that this was a Telemedicine visit and being conducted confidentially over secure lines. Methods to assure confidentiality were taken. Patient acknowledged consent and understanding of pr ivacy and security of the Telemedicine visit. The patient agreed to participate. Time dedicated to today's appointment: 20 minutes HISTORY: Dianne De Paz is a 67 year old female seen today for follow up for sleep apnea. Patient was seen on 07/25/21 with fatigue for several months, choking awakening, nocturia. [place] was 5, FOSQ 36. Hx HTN, GERD, T2DM, depression, fibromyalgia, hypothyroidism, DLD. PSG 09/11/21: TST 322 min, AHI 11.9, REM AHI 49.8, SpO2 jacqueline 79%, time <89% 18.2 min, PLMI 79.9,PLMAI 14.2. Ferritin was 80 on 08/29/20. CPAP was ordered, however, was not obtained at that time due to financial reasons. She was hospitalized in February at [facility] with colitis attributed to Shigella. While in the hospital, she fell asleep in the ER and nurse ran in to start oxygen because her oxygen level dropped while sleeping. She is recovered from the GI infection now. Requested CPAP re-order; needed updated f/u appt to have script filled. No changes in sleep in the interim. Still tired. Planning to have knee surgery. She started Jardiance in November 2021. It seems to affect her dream content. [place] Sleepiness Scale Question 03/13/2023 10:05 AM EST - Filed by Patient What is the chance you will doze off in the following situation? Sitting and reading Slight chance of dozing Watching TV Moderate chance of dozing Sitting inactive in a public place, such as a theater or meeting High chance of dozing As a passenger in a car for an hour without a break Slight chance of dozing Lying down to rest in the afternoon when circumstances permit Moderate chance of dozing When sitting and talking to someone No chance of dozing When sitting quietly after lunch without alcohol No chance of dozing In a car, while stopped for a few minutes in traffic No chance of dozing Score (range: 0 - 24) 9 Functional Outcomes Of Sleep Question 03/13/2023 10:07 AM EST - Filed by Patient Please complete the following questions. Do you have difficulty concentrating because you are sleepy or tired? Yes, a little Do you have difficulty remembering things because you are sleepy or tired? No Do you have difficulty operating a motor vehicle for short distances (less than 100 miles) because you become sleepy? No Do you have difficulty operating a motor vehicle for long distances (more than 100 miles) because you become sleepy? No Do you have difficulty visiting family or friends in their home because you become sleepy or tired?No Has your relationship with family, friends, or work colleagues been affected because you are sleepyor tired? No Do you have difficulty watching a movie or video because you become sleepy or tired? No Do you have difficulty being as active as you want to be in the evening because you are tired or sleepy? Yes, a little Do you have difficulty being as active as you want to be in the morning because you are tired or sleepy? No Has your mood been affected because you are sleepy or tired? No Score (range: 10 - 40) 38 Myc Visit Accident Related Question Question 03/13/2023 10:07 AM EST - Filed by Patient Is this visit related to an accident? (i.e work, motor vehicle) No Patient Active Problem List Diagnosis Code Acquired hypothyroidism E03.9 Dyslipidemia E78.5 Gastroesophageal reflux disease with esophagitis K21.00 Morbid obesity (HCC) E66.01 Type 2 diabetes mellitus with hemoglobin A1c goal of less than 8.0% (HCC) E11.9 HTN, goal below 130/80 I10 Fibromyalgia M79.7 H/O dysplastic nevus Z86.018 HERBERT (obstructive sleep apnea) G47.33 Food insecurity Z59.41 PHYSICAL EXAM: Recent weight 244 lbs, BMI 39.38 PE limited due to telemedicine. Patient does not appear to be in distress. No rash on visible skin on face. Breathing does not appear to be labored. No audible stridor. Speech is clear and appropriate. Appropriate affect. ASSESSMENT/PLAN: Obstructive sleep apnea - mild by AHI criteria, severe in REM sleep, associated with nocturnal hypoxemia, HTN, fatigue - Will begin autotitrating CPAP at 5-20 cmH2O. DME: [facility]. CPAP machine, supplies, and mask fitting ordered. - Patient was encouraged to use CPAP whenever sleeping, including with any naps. Minimum usage requirement of at least 4 hours a night on 70% of nights was reviewed. - Follow up in 2 months to evaluate tolerance, adherence, and efficacy of PAP treatment. - Patient should continue to avoid driving while sleepy/drowsy. Nocturnal hypoxemia - plan to reassess with overnight oximetry once doing well on PAP therapy Follow-up with Sleep Medicine in 2 months. Sophy Duffy DO documented in this encounter Plan of Treatment Upcoming Encounters Date Type Department Care Team (Latest Contact Info) Description 04/08/2023 7:30 AM EST Hospital Encounter OR [facility], Operating Room [facility] [address] [place] [id number] Norberto Clarke MD [address] [place] [address] 04/08/2023 7:30 AM EST - 04/08/2023 7:56 AM EST Surgery OR [facility], Operating Room [facility] [address] [place] [phone] Norberto Clarke MD [address] [place] [address] RIGHT EXTRACAPSULAR CATARACT REMOVAL WITH INTRAOCULAR LENS 04/16/2023 8:20 AM EST Office Visit Family Practice [facility] [address] [place] [address] Bunny Peña MD [address] [place] [address] 09/30/2023 8:15 AM EDT Imaging Radiology [address] [facility] [place] [address] 11/20/2023 8:20 AM EDT Office Visit [address] [address] Marian Gardner PA-C [address] [place] [address] [place] [address] Scheduled Procedures Name Priority Associated Diagnoses Date/Ti [...] this encounter Medical Devices Implanted Type Area Manager Clinical Applications Device Identifier Shelf Expiration Date Model / Serial / Lot Lens [id number] 13.00mm 14.00 - [id number] - [id number] Implanted:Qty: 1 on 03/11/2023 by Norberto Clarke MD at OR [facility] Left: Eye [employer] 09/02/2027 [id number] / [id number] / [id number] documented as of this encounter Visit Diagnoses Diagnosis Obstructive sleep apnea- Primary Obstructive sleep apnea (adult) (pediatric) Nocturnal hypoxemia Hypoxemia HTN, goal below 130/80 Unspecified essential hypertension Fatigue, unspecified type Combined forms of age-related cataract of right [...] the patient have Health Care Power of Knot Bumper? No Care Teams Culled Fruit Packer Relationship Specialty Start Date End Date Bunny Peña MD [address] [facility] [place] [address] PCP - General Family Medicine 11/02/18 documented as of this encounter
--- OUTSIDE RECORDS SUMMARY | 2023-04-22 06:53 | External Medical Summary | Summary of Care ---
Author Name Unknown Organization [facility] Address [address] [place] [address] Phone [phone] Care Team Providers Care Summer Sessions Director Name Role Phone Bunny Peña MD Primary Care Provider [phone] [phone] Reason for Visit * Reason Onset Date Comments Hospital Follow-Up 03/03/2023 [facility] 03/01 Encounter Details Date Type Department Care Team (Late st Contact Info) Description 03/03/2023 Telephone Ancillary [facility] [address] [place] [address] Frances Jay RN Hospital Follow-Up ([facility] 03/01) Allergies Active Allergy Reactions Criticality Noted Date Comments Pollen 11/02/2018 Seasonal allergies Levofloxacin In D5w Rash High 11/02/2018 Pantoprazole 01/30/2021 Leg cramps documented as of this encounter (statuses as of 03/03/2023) Medications Medication Sig Dispensed Refills Start Date End Date Status Fluticasone Propionate 50 MCG/ACT Nasal Suspension Administer 1 [place] into nostril in the morning. 0 Active [...] before bedtime. 0 01/31/2023 Active Polymyxin B-Trimethoprim 13887-1.1 UNIT/ML-% Ophthalmic Solution (Polytrim) Instill 1 Drop into the left eye every 6 hours. 0 01/30/2023 Active prednisoLONE Acetate 1 % Ophthalmic Suspension (Pred Forte) Instill 1 Drop into the left eye in the morning and 1 Drop at noon and 1 Drop in the evening and 1 Drop before bedtime. 0 01/30/2023 Active documented as of this encounter (statuses as of 03/03/2023) Active Problems Problem Noted Date Diagnosed Date Food insecurity 12/16/2022 Overview: Per [facility] Protocol HERBERT (obstructive sleep apnea) 11/01/2021 H/O dysplastic nevus 10/03/2021 Overview: Mildly atypical nevus (L distal neck) Obesity, Class II, BMI 35-39.9, isolated (see ac tual BMI) 07/28/2021 Fibromyalgia 07/16/2019 HTN, goal below 130/80 04/16/2019 Type 2 diabetes mellitus wit h hemoglobin A1c goal of less than 8.0% 04/13/2019 Acquired hypothyroidism 11/02/2018 Dyslipidemia 11/02/2018 Gastroesophageal reflux disease with esophagitis 11/02/2018 documented as of this encounter (statuses as of 03/03/2023) Resolved Problems Problem Noted Date Diagnosed Date Resolved Date Food insecurity 01/14/2022 06/19/2022 Overview: Per [facility] Protocol At risk for obstructive sleep apnea 07/28/2021 11/01/2021 Primary osteoarthritis of left knee 10/18/2019 11/02/2021 Recurrent major depressive d isorder, in partial remission 04/16/2019 11/02/2021 Chronic pain of left knee 11/02/2018 Morbid obesity due to excess calories 11/02/2018 07/28/2021 Impaired fasting glucose 11/02/201802/2019 documented as of this encounter (statuses as of 03/03/2023) Immunizations Name Administration Dates Next Due COVID-19 [...] encounter Miscellaneous Notes * Telephone Encounter - Frances Jay RN - 03/03/2023 10:24 AM EDT Transitions of Care Note Reason for Referral:Recent Admission Phone visit for follow up: ALIRIO Admitted to: [facility], Date: 02/26 Discharged to: home, Date: 02/28 Diagnosis driving hospitalization: Diarrhea secondary to Shigella infection Source/Contact: Patient SUBJECTIVE Consent: Verbal consent for review of hospital discharge: Yes REVIEW OF SYSTEMS Patient/Other Reports: Current patient/caregiver problems or concerns: none at this time CV: Denies problems Pulmonary: Denies problems Chills/Sweats/Fever:Denies chills/sweats Denies fever Appetite:Denies problems such as nausea, vomiting, burning, decreased appetite Current diet:regular diet Bowel: denies problems Bladder: denies problems Wound (If applicable): N/A Pain:Denies Sleep:Denies problems FUNCTIONAL STATUS: ADL'S: Needs Assistance With:N/A as pt is independent IADL'S: Needs Assistance With:N/A as pt is independent Cognitive and Mental Health: denies problems, alert and oriented x 3, and able to communicate, understand instructions, process information. MEDICATION RECONCILIATION Medications: No new medications or medication changes OBJECTIVE ASSESSMENT Medication Risk Assessment: No risks identified Did patient fail outpatient treatment? No Discharge instructions available for review? Yes PLAN Symptom Monitoring Interventions:Member/caregiver education - signs and symptoms to contact PrimaryCare (DO NOT DELETE-Three mena symptoms patient is to report to PCP) 1. N/V/D 2. fever 3. Feeling lightheaded/dizzy Concrete SculptorProof Machine Operator Supervisor of Care interventions/Action Plan: Medication reconciliation and 5 - 7 day follow-up with PCP in place - Date: 03/06 Educated on role of ALIRIO completed with patient/caregiver. Educated patient/caregiver on patient right to have input on ALIRIO plan of care. Verification of Home Health/DME if indicated: NO Identified Care Gaps: Yes Care Gaps closed this call: Appointment made or confirmed, Post discharge appointment, and Transition of Care follow-up communication Re-evaluation of Plan of Care and progress towards goals achievement: Patient education this visit: Verbal, as above Plan to follow-up as previously scheduled, instructed to call Primary Care Provider with change in symptoms or as needed before next follow-up, discharge needs met, verbalizes understanding and agrees with plan. Frances Jay RN documented in this encounter Plan of Treatment Upcoming Encounters Date Type Department Care Team (Latest Contact Info) Description 03/06/2023 9:40 AM EDT Office Visit Family [facility] [address] [address] Jaswinder Lomeli CRNP [address] [place] [address] 03/11/2023 10:07 AM EST Hospital Encounter OR [facility], Operating Room [facility] [address] [phone] Norberto Clarke MD [address] [place] [address] 03/11/2023 10:07 AM EST - 03/11/2023 10:43 AM EST Surgery OR [facility], Operating Room [facility] [address] [phone] Norberto Clarke MD [address] [place] [address] LEFT EXTRACAPSULAR CATARACT REMOVAL WITH INTRAOCULAR LENS 04/08/2023 7:30 AM EST Hospital Encounter OR [facility], Operating Room [facility] [address] [place] [phone] Norberto Clarke MD [address] [place] [address] 04/08/2023 7:30 AM EST - 04/08/2023 7:56 AM EST Surgery OR [facility], Operating Room [facility] [address] [place] [phone] Norberto Clarke MD [address] [place] [address] RIGHT EXTRACAPSULAR CATARACT REMOVAL WITH INTRAOCULAR LENS 04/16/2023 8:20 AM EST Office Visit Family Practice [facility] [address] [place] [address] Bunny Peña MD [address] [place] [address] 09/30/2023 8:15 AM EDT Imaging Radiology [address] [place] [address] 11/20/2023 8:20 AM EDT Office Visit [address] [address] Marian Gardner PA-C [address] [place] [address] [place] [address] Scheduled Procedures Name Priority Associated Diagnoses Date/Ti me EXTRACAPSULAR CATARACT REMOVAL WITH INTRAOCULAR LENS Combined forms of age-related cataract of left eye 03/11/2023 10:07 AM EST EXTRACAPSULAR CATARACT REMOVAL WITH INTRAOCULAR LENS Combined forms of age-related cataract of right eye 04/08/2023 7:30 AM EST COLONOSCOPY FLEXIBLE PROXIMAL DIAGNOSTIC Recall History of adenomatous polyp of colon Health Maintenance Due Date Last Done Comments Hepatitis C Screening 1974 Cologuard 2001 Fecal Occult Blood Test 2001 Sigmoidoscopy 2001 Hepatitis B (1 of 3 - Risk 3-dose series) 2016 Depression Screening 05/26/2021 05/26/2020 DIABETES-EYE EXAM 09/07/2021 [...] Not on filedocumented as of this encounter Care Teams Summer Sessions Director Relationship Specialty Start Date End Date Bunny Peña MD [address] [place] [address] PCP - General Family Medicine 11/02/18 documented as of this encounter
--- OUTSIDE RECORDS SUMMARY | 2023-04-22 06:53 | External Medical Summary ---
Author Name Unknown Address Unknown Organization : Laboratory Report Ordering Provider Test Date Status NELY CORLEY 03/11/2023 08:45:21 Final Observation Date Value Abnormality Reference (Units ) Status Glucose Point of Care 03/11/2023 08:45:21 145 Above high normal 70-120 (mg/dL) Final Performing Location
--- OUTSIDE RECORDS SUMMARY | 2023-04-22 06:53 | External Medical Summary | Summary of Care ---
Author Name Unknown Organization [facility] Address [address] [place] [address] Phone [phone] Care Team Providers Care Color Television Console Monitor Name Role Phone Bunny Peña MD Primary Care Provider [phone] Reason for Visit * Reason Onset Date Comments pre-op exam EXTRACAPSULAR CA TARACT REMOVAL WITH INTRAOCULAR LENS-- 03/04 & 03/11 Medication Administration 02/21/2023 Flu an d/or Pneumo Inj Encounter Details Date Type Department Care Team Description 02/21/2023 Office Visit Family Practice [facility] [address] [place] [address] Bety Calvin CRNP [address] [facility] [address] Pre-op evaluation*; Need for prophylactic vaccination and inoculation against influenza; DM type 2 nursing care encounter ([facility]); HERBERT (obstructive sleep apnea); Acquired hypothyroidism; HTN, goal below 130/80; Type 2 diabetes mellitus without complication, without long-term current use of insulin ([facility]); Dyslipidemia; Gastroesophageal reflux disease, unspecified whether esophagitis present Allergies Active Allergy Reactions Severity Noted Date Comments Pollen 11/02/2018 Seasonal allergies Levofloxacin In D5w Rash High 11/02/2018 Pantoprazole 01/30/2021 Leg cramps documented as of this encounter (statuses as of 02/21/2023) Medications Medication Sig Dispensed Refills Start Date End Date Status Fluticasone Propionate 50 MCG/ACT Nasal Suspension Administer 1 [place] into nostril in the morning. 0 Active [...] before bedtime. 0 01/31/2023 Active Polymyxin B-Trimethoprim 09118-6.1 UNIT/ML-% Ophthalmic Solution (Polytrim) Instill 1 Drop [...] Patient Instructions * Patient Instructions* Ginny Murdock, CLEANING TECHNICIAN - 02/21/2023 10:12 AM EDT Diabetes: Keeping [...] calluses yourself. Talk to your doctor or returned goods inspector (a doctor who specializes in foot care) [...] the area doesnt appear to be healing. [id number] [employer], [address] [place] [address], [place] [address]. All rights reserved. This information is not intended as a substitute for professional medical care. Always follow your healthcare professional's instructions. documented in this encounter Progress Notes * Ginny Murdock LPN - 02/21/2023 10:08 AM EDT PRE - ADMINISTRATION DOCUMENTATION Are you experiencing any cold symptoms or fever? No Have you had Guillain-Gurley Syndrome (an illness that causes paralysis) within [...] Pt also has L knee replacement at [facility] with Dr. Pelayo on 04/22/2023. Thought she could use this appt to cover that. We have not received these in office. documented in this encounter Plan of Treatment Upcoming Encounters Date Type Specialty Care Team Description 03/04/2023 Hospital Encounter Surgery Norberto Clarke MD [address] [address] 03/04/2023 Surgery Surgery Norberto Clarke MD [address] [address] LEFT EXTRACAPSULAR CATARACT REMOVAL WITH INTRAOCULAR LENS 03/11/2023 Hospital Encounter Surgery Norberto Clarke MD [address] [address] 03/11/2023 Surgery Surgery Norberto Clarke MD [address] [address] RIGHT EXTRACAPSULAR CATARACT REMOVAL WITH INTRAOCULAR LENS 04/16/2023 Office Visit Family Medicine Bunny Peña MD [address] [place] [address] 09/30/2023 Imaging Radiology 11/20/2023 Office Visit Dermatology Marian Gardner PA-C [address] [place] [address] [place] [address] Scheduled Orders Name Type Priority Associated Diagnoses [...] cataract documented in this encounter Care Teams Color Television Console Monitor Relationship Specialty Start Date End Date Bunny Peña MD [address] [place] [address] PCP - General Family Medicine 11/02/18 documented as of this encounter
--- OUTSIDE RECORDS SUMMARY | 2023-04-22 06:53 | External Medical Summary | Summary of Care ---
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 age-related cataract of left eye [H25.812] Procedures REMOVE CATARACT, INSERT LENS PROSTH LEFT EXTRACAPSULAR CATARACT REMOVAL WITH INTRAOCULAR LENS Referral ID Status Reason Start Date Expiration Date Visits Re quested Visits Authorized [id number] Encounter Details Date Type Department Care Team (Latest Contact Info) Description 03/11/2023 8:31 AM EST - 03/11/2023 11:15 AM EST Hospital Encounter OR [facility], Operating Room [facility] [address] [place] [phone] Norberto Clarke MD [facility] Miri Smith [address] [address] Discharge Disposition: Home - Self Care Allergies Active Allergy Reactions Criticality Noted Date Comments Pollen 11/02/2018 Seasonal allergies Levofloxacin In D5w Rash High 11/02/2018 Pantoprazole 01/30/2021 Leg cramps documented as of this encounter (statuses as of 03/11/2023) Medications Medication Sig Dispensed Refills Start Date End Date Status Fluticasone Propionate 50 MCG/ACT Nasal Suspension Administer 1 Clancy into nostril in the morning. 0 Active [...] Additional Information Patient not taking.Reported on 02/27/2023 [facility] Advance Oral Tablet Take by mouth [...] before bedtime. 0 01/31/2023 Active Polymyxin B-Trimethoprim 73769-8.1 UNIT/ML-% Ophthalmic Solution (Polytrim) Instill 1 Drop into the left eye every 6 hours. 0 01/30/2023 Active prednisoLONE Acetate 1 % Ophthalmic Suspension (Pred Forte) Instill 1 Drop into the left eye in the morning and 1 Drop at noon and 1 Drop in the evening and 1 Drop before bedtime. 0 01/30/2023 Active documented as of this encounter (statuses as of 03/11/2023) Active Problems Problem Noted Date Diagnosed Date Food insecurity 12/16/2022 Overview: Per [facility] Protocol HERBERT (obstructive sleep apnea) 11/01/2021 H/O dysplastic nevus 10/03/2021 Overview: Mildly atypical nevus (L distal neck) Fibromyalgia 07/16/2019 HTN, goal below 130/80 04/16/2019 Type 2 diabetes mellitus wit h hemoglobin A1c goal of less than 8.0% 04/13/2019 Acquired hypothyroidism 11/02/2018 Dyslipidemia 11/02/2018 Gastroesophageal reflux disease with esophagitis 11/02/2018 Morbid obesity 11/02/2018 documented as of this encounter (statuses as of 03/11/2023) Resolved Problems Problem Noted Date Diagnosed Date Resolved Date Food insecurity 01/14/2022 06/19/2022 Overview: Per [facility] Protocol Obesity, Class II, BMI 35-39 .9, isolated (see actual BMI) 07/28/2021 03/05/2023 At risk for obstructive sleep apnea 07/28/2021 11/01/2021 Primary osteoarthritis of left knee 10/18/2019 11/02/2021 Recurrent major depressive d isorder, in partial remission 04/16/2019 11/02/2021 Chronic pain of left knee 11/02/2018 Impaired fasting glucose 11/02/201802/2019 documented as of this encounter (statuses as of 03/11/2023) Immunizations Name Administration Dates Next Due COVID-19 [...] Sign Reading Time Taken Comments Blood Pressure 124/60 03/11/2023 10:20 AM EST Pulse 81 03/11/2023 10:20 AM EST Temperature 36.2 C (97.2 F) 03/11/2023 10:[address] Respiratory Rate 16 03/11/2023 10:20 AM EST Oxygen Saturation 96% 03/11/2023 10:20 AM EST Inhaled Oxygen Concentration - - Weight 110.7 kg (244 lb) 03/11/2023 8:45 AM EST Height 167.6 cm (5' 6") 03/11/2023 8:45 AM EST Body Mass Index 39.38 03/11/2023 8:45 AM EST documented in this encounter Discharge Instructions * Discharge Instr - AVS* Norberto Clarke MD - 03/04/2023 3:59 PM EDT Discharge Date: 03/11/23 You may call Doctor Vince at during [...] pulling more than 10 lbs for 1 week. Driving: Do not drive for 24 hours after surgery . Date you may return to work or school: N/A Follow Up - Return appointment(s): 03/12/23 @11:[address] Estevez See your medical planner in 1day(s). SPECIAL INSTRUCTIONS EYEDROPS for healing [...] DO NOT HESITATE TO CALL US AT [phone] AT ANY TIME INorberto MD personally performed the services described in this documentation. All medical record entries made by the scribe were at my direction and in my presence. I have reviewed the chart and agree that the record reflects my personal performance and is accurate and complete. Norberto buitrago MD. 03/11/2023. 10:01 AM. documented in this encounter Progress Notes * Norberto Clarke MD - 03/11/2023 10:30 AM EST [facility] [address] [phone] OUTPATIENT SURGERY DISCHARGE SUMMARY NOTE Name: Dianne De Paz Location: OR [facility]/OR Date: 03/11/2023 Time: 10:31 AM Surgery Date: 03/11/2023 Procedure: Procedure(s): LEFT EXTRACAPSULAR CATARACT REMOVAL WITH INTRAOCULAR LENS Left Surgeon: Surgeon(s): Norberto Clarke MD Discharge Diagnosis: Combined Senile Cataract left eye- H25.812 After examination of this patient, I have determined she is ready for discharge to home when the patient meets criteria. Discharge instructions were given to the patient. Note has been documented by Audrey Aden on 03/11/2023 documented in this encounter H&P Notes * Norberto Clarke MD - 03/11/2023 7:39 AM EST Images from the original note were not included. Progress Notes Jaswinder Lomeli CRNP (Certified Registered Nurse Practitioner) Family Medicine Expand All Collapse All Pre-Operative Medical Evaluation Procedure Information Type of Surgery: Cataract surgery Referring Physician / Surgeon: Dr. Clarke Date of procedure: (L) 03/11/2023 and (R)04/08/2023 Brief History of Present Illness: 67 year old patient with diabetes, hypothyroidism, hyperlipidemia, GERD, hypertension, fibromyalgia, obesity, HERBERT, and others listed below. She was most recently hospitalized with dx of diarrhea secondary to Shigella infection to [facility] from 02/27/23-03/01/23. She also had WALKER, Cr 1.39 on admission but improved 0.59 at discharge. Today she is asymptomatic. Most recent A1C during admission was 7. She feels back to her baseline health today. No fever, chills, chest pain, shortness of breath, headache, nausea, vomit, diarrhea, constipation or vision changes. Medical History Problem List: Food insecurity (12/16/2022) Food insecurity (01/14/2022) HERBERT (obstructive sleep apnea) (11/01/2021) H/O dysplastic nevus (10/03/2021) Obesity, Class II, BMI 35-39.9, isolated (see actual BMI) (07/28/2021) At risk for obstructive sleep apnea (07/28/2021) Primary osteoarthritis of left knee (10/18/2019) Fibromyalgia (07/16/2019) Recurrent major depressive disorder, in partial remission (HCC) () HTN, goal below 130/80 (04/16/2019) Type 2 diabetes mellitus with hemoglobin A1c goal of less than 8.0% ([facility]) (04/13/2019) Acquired hypothyroidism (11/02/2018) Dyslipidemia (11/02/2018) Gastroesophageal reflux disease with esophagitis (11/02/2018) Chronic pain of left knee (11/02/2018) Morbid obesity (HCC) (11/02/2018) Impaired fasting glucose (11/02/2018) Current Medications RABEprazole Sodium 20 MG Oral Tablet Delayed Release, TAKE 1 TABLET IN THE MORNING Montelukast Sodium 10 MG Oral Tablet (Singulair), TAKE 1 TABLET BEFORE BEDTIME Jardiance 25 MG Oral Tablet (Empagliflozin), TAKE 1 TABLET BY MOUTH EVERY DAY IN THE MORNING amLODIPine-Olmesartan 10-20 MG Oral Tablet, 1 Tablet, Oral, Daily(AM) Fenofibrate 145 MG Oral Tablet (Tricor), 145 mg, Oral, Daily(AM) glipiZIDE 5 MG Oral Tablet (Glucotrol), TAKE 1 TABLET TWICE A DAY, 30 MINUTES BEFORE MEALS Levothyroxine Sodium 150 MCG Oral Tablet (Synthroid), 150 mcg, Oral, Daily(AM) Move Free [facility] Advance Oral Tablet, Take by mouth . Ascorbic Acid (VITAMIN C) 100 MG Tablet, 100 mg, Oral, Daily(AM) Cholecalciferol 50 MCG (2000 UT) Oral Capsule, 2,000 Units, Oral, Daily(AM) Coenzyme Q10 (COQ10) 100 MG CAPS, Take by mouth. Ketorolac Tromethamine 0.5 % Ophthalmic Solution (Acular), 1 Drop, Left eye, QID(AM/NOON/PM/HS) (Patient not taking: Reported on 03/06/2023) Polymyxin B-Trimethoprim 07536-8.1 UNIT/ML-% Ophthalmic Solution (Polytrim), 1 Drop, Left eye, Q6H (Patient not taking: Reported on 03/06/2023) prednisoLONE Acetate 1 % Ophthalmic Suspension (Pred Forte), 1 Drop, Left eye, QID(AM/NOON/PM/HS) (Patient not taking: Reported on 03/06/2023) Albuterol Sulfate HFA 108 (90 Base) MCG/ACT Inhalation Aerosol Solution, 2 Puff, Inhalation, Q6H PRN (Patient not taking: Reported on 02/27/2023) Triamcinolone Acetonide 0.1 % External Ointment (Aristocort), Apply to rash on hands 2x daily (or more if itchy instead of scratching) until resolved (Patient not taking: Reported on 03/06/2023) B Complex Vitamins (B COMPLEX 50) TABS, Take by mouth. (Patient not taking: Reported on 03/06/2023) Fluticasone Propionate 50 MCG/ACT Nasal Suspension, 1 Clancy, Nasal, Daily(AM) (Patient not taking: Reported on 03/06/2023) Allergies: Levaquin [levofloxacin in d5w], Environmental [pollen], and Pantoprazole Past Medical History: has a past medical history of Acquired hypothyroidism (11/02/2018), At risk for obstructive sleep apnea (07/28/2021), Atypical ductal hyperplasia of breast (2003), Chronic pain of left knee (11/02/2018), Dyslipidemia (11/02/2018), Fibromyalgia (07/16/2019), Gastroesophageal reflux disease with esophagitis ( 11/02/2018), HTN, goal below 130/80 (04/16/2019), Impaired fasting glucose (11/02/2018), Knee pain, Lyme arthritis of knee (HCC) (2011), Morbid obesity due to excess calories ([facility]) (11/02/2018), Obesity, Class II, BMI 35-39.9, isolated (see actual BMI) (07/28/2021), HERBERT (obstructive sleep apnea) (11/01/2021), Primary osteoarthritis of left knee (10/18/2019), Recurrent major depressive disorder, in full remission (HCC) (04/16/2019), Recurrent major depressive disorder, in partial remission ([facility]) (04/16/2019), and Type 2 diabetes mellitus with hemoglobin A1c goal of less than 7.0% ([facility]) (04/13/2019). Past Surgical History: has a past surgical history that includes Colonoscopy, Diagnostic (Rectum) (08/16/2020); EGD, Flexible, Diagnostic (02/07/2021); and knee arthroscopy/meniscectomy (2020). Social History: reports that she has never smoked. She has never used smokeless tobacco. She reports that she does not drink alcohol and does not use drugs. Family History: family history includes Colon cancer in her aunt (unspecified); Diabetes in her sister. Anesthesia History Type of Anesthesia: Local Anesthesia reaction: No History of surgical complications: no Personal history of venous thromboembolic disease: no Objective Physical Exam Vitals: 03/06/23 0947 Temp: 36.7 C (98.1 F) Pulse: 100 Resp: 20 BP: 134/68 Physical Exam Constitutional: Appearance: Normal appearance. She is well-developed and well-groomed. HENT: Head: Normocephalic. Right Ear: Tympanic membrane, ear canal and external ear normal. Left Ear: Tympanic membrane, ear canal and external ear normal. Nose: Nose normal. Mouth/Throat: Mouth: Mucous membranes are moist. Pharynx: Oropharynx is clear. Eyes: Extraocular Movements: Extraocular movements intact. Conjunctiva/sclera: Conjunctivae normal. Pupils: Pupils are equal, round, and reactive to light. Cardiovascular: Rate and Rhythm: Normal rate and regular rhythm. Pulses: Normal pulses. Heart sounds: Normal heart sounds. Pulmonary: Effort: Pulmonary effort is normal. Breath sounds: Normal breath sounds. Abdominal: General: Bowel sounds are normal. Palpations: Abdomen is soft. Musculoskeletal: General: Normal range of motion. Cervical back: Normal range of motion. Right lower leg: No edema. Left lower leg: No edema. Skin: General: Skin is warm and dry. Capillary Refill: Capillary refill takes less than 2 seconds. Neurological: General: No focal deficit present. Mental Status: She is alert. Psychiatric: Mood and Affect: Mood normal. Labs reviewed and are significant for: none EKG by my review is significant for: NSR Surgical Risk Scoring Revised Cardiac Risk Index (RCRI) High-risk type of surgery (examples include vascular and any open intraperitoneal or intrathoracic procedures): 0=No History of ischemic heart disease (history of myocardial infarction or positive exercise test, current compliant of chest pain considered to be secondary to myocardia ischemia, use of nitrate therapy, or ECG with pathological Q waves; do not count prior coronary revascularization procedure unless one of the other criteria for ischemic heart disease is present): 0=No History of heart failure: 0=No History of cerebrovascular disease: 0=No Diabetes mellitus requiring treatment with insulin: 0=No Preoperative serum creatinine >2.0 mg/dL (177 micromol/L): 0=No Pt has revised cardiac index score of: No Risk Factors- 0.4% (95% CI: 0.1-0.8) Screening for Obstructive Sleep Apnea (STOP-BANG) Dx of HERBERT - in process of obtaining CPAP Assessment and Plan Hospital discharge follow-up Colitis secondary to Shigella infection to [facility] 02/27/23-03/01/23 WALKER, Cr improved 0.59 at discharge, A1C - 7Today she is asymptomatic. Most recent A1C during admission was 7. Preop examination Cataracts Knee surgery in April -- has f/u pcp appt same week Type 2 diabetes mellitus with hemoglobin A1c goal of less than 8.0% ([facility]) Cont glipizide, jardiance -- hold glipizide when fasting HTN, goal below 130/80 Cont amlodipine/omesartan Dyslipidemia Cont fibrate 6. Gastroesophageal reflux disease with esophagitis without hemorrhage 7. Acquired hypothyroidism Cont levothyroxine 8. Obesity, Class II, BMI 35-39.9, isolated (see actual BMI) 9. HERBERT (obstructive sleep apnea) CPAP Functional Assessment They are able to walk up a flight of stairs. The patient's functional status is good (greater than 4 METS). 1 MET: 4 METs: 4-10 METs: Can take care of self, such as eat, dress or use the toilet. Can walk to block or go up a flight of steps. Can do heavy house work. Surgical Risk Assessment Patient is low medical risk for the listed procedure. Medication adjustments: continue current medications Additional consults or testing: Not at this time Other Notes All notes Nursing Note from Nitin Quiroz RN Progress Notes from Unknown, No Physician Data Instructions Patient declined After Visit Summary Additional Documentation Vitals: BP 134/68 (BP Site: Left Arm, BP Position: Sitting, BP Cuff Size: Large) Pulse 95 Temp 36.7 C (98.1 F) (Tympanic) Resp 20 Wt 111.1 kg (244 lb 14.4 oz) LMP (LMP Unknown) BMI 39.53 kg/m BSA 2.27 m More Vitals Flowsheets: Nurse Rooming Tool, Priorities Wizard Content Encounter Info: Billing Info, History, Allergies, Detailed Report, Questionnaires Media From this encounter Scan on 03/07/2023 by Unknown, No Physician Data: PRE-OP/MED CLEARANCE REQUEST FORM - [facility]DR NORBERTO CLARKE Patient Handouts No notes of this type exist for this encounter. Orders Placed None Medication Changes None Medication List Visit Diagnoses Hospital discharge follow-up Preop examination Type 2 diabetes mellitus with hemoglobin A1c goal of less than 8.0% ([facility]) HTN, goal below 130/80 Dyslipidemia Gastroesophageal reflux disease with esophagitis without hemorrhage Acquired hypothyroidism Obesity, Class II, BMI 35-39.9, isolated (see actual BMI) HERBERT (obstructive sleep apnea) Problem List Note has been documented by Audrey Aden on 03/11/2023 * Norberto Clarke MD - 03/11/2023 7:39 AM EST HISTORY & PHYSICAL INTERVAL NOTE [facility] [address] [address] History and Physical Update: Name: Dianne De Paz Location: Room/bed info not found Date: 03/11/2023 Time: 7:39 AM DATE OF HISTORY AND PHYSICAL: 03/06/23 BP: 135 mmHg/71 mmHg (03/11/23844) Pulse: 80 (03/11/23844) Temp: 36.11 C (03/11/23844) Resp: 17 (03/11/23844) SpO2: 95 % (03/11/23844) Does patient take a beta yue? No Did patient stop anticoagulants? No Heart Exam: regular rate and rhythm Lung Exam: clear to auscultation bilaterally Other Pertinent Physical Exam: none I have reviewed the H&P previously performed and examined the patient today. There are no new findings noted. documented in this encounter Nursing Notes * Taty Friend RN - 03/11/2023 11:15 AM EST Patient awake and oriented x3. Denies pain. No drainage from eye noted. Tolerating PO fluids. Discharge instructions given and patient verbalizes understanding. Patient ambulated to private vehicle and discharged to home. * Taty Friend RN - 03/11/2023 10:05 AM EST Patient transferred to pacu 2 status post left cataract removal and lens placement. No drainage noted. Patient awake. Denies pain and nausea. Respirations are even and unlabored on room air. Abdomen soft and non distended. Vital signs stable. * Taty Friend RN - 03/11/2023 8:35 AM EST Surgical consent verified with patient. Patient agrees with listed procedure and verified signature. documented in this encounter OR Notes * OR Surgeon - Norberto Clarke MD - 03/11/2023 10:30 AM EST [facility] [address] [address] OPERATIVE REPORT Name: Dianne De Paz Date: 03/11/2023 Time: 10:30 AM Location: OR [facility] Service: Ophthalmology Date of Operation: 03/11/2023 Pre-op Diagnosis: Visually significant combined cataract, left eye Post-op Diagnosis: Same Operative Procedure: Phacoemulsification with posterior chamber intraocular lens implantation, denzel (43214 Standard Cataract) Surgeon: Norberto Clarke MD Assistants: None Anesthesia: topical Implant/Graft: B&L: 14.0 [id number] SN: [id number] Complications: none Drains: none Urine Output: minimal [...] has been documented by Audrey Aden on 03/11/2023 documented in this encounter Plan of Treatment Upcoming Encounters Date Type Department Care Team (Latest Contact Info) Description 04/08/2023 7:30 AM EST [facility] [phone] Norberto Clarke MD [facility] Miri Smith [address] [place] [address] 04/08/2023 7:30 AM EST - 04/08/2023 7:56 AM EST Surgery OR [facility], Operating Room [facility] [address] [place] [address] Norberto Clarke MD [address] Miri [address] [facility] [address] [place] [address] RIGHT EXTRACAPSULAR CATARACT REMOVAL WITH INTRAOCULAR LENS 04/16/2023 8:20 AM EST Office Visit Family Practice [facility] [address] [place] [address] Bunny Peña MD [address] [facility] [address] 09/30/2023 8:15 AM EDT Imaging Radiology [facility] [facility] [address] [place] [address] 11/20/2023 8:20 AM EDT Office Visit Dermatology[address] [address] Marian Gardner PA-C [address] [place] [address] [place] [address] Scheduled Orders Name Type Priority Associated Diagnoses Orde r Schedule GLUCOSE METER, POINT OF CARE (COMMUNICATION ORDER) Point of Care Testing Routine As Needed until discontinued starting 03/11/2023 Scheduled Procedures Name Priority Associated Diagnoses Date/Ti me EXTRACAPSULAR CATARACT REMOVAL WITH INTRAOCULAR LENS Combined forms of age-related cataract of left eye 03/11/2023 9:34 AM EST EXTRACAPSULAR CATARACT REMOVAL WITH INTRAOCULAR [...] this encounter Medical Devices Implanted Type Area [employer] Assistant Device Identifier Shelf Expiration Date Model / Serial / Lot Lens Li61ao 13.00mm 14.00 - [id number] - [id number] Implanted:Qty: 1 on 03/11/2023 by Norberto Clarke MD at [facility] Left: Eye [employer] 09/02/2027 [id number] / [id number] / [id number] documented as of this encounter Procedures Procedure Name Priority Date/Time Associated Diagnosis Comments GLUCOSE METER, POINT OF CARE ORQUIDEA 03/11/2023 8:45 AM EST documented in this encounter Results * (ABNORMAL) GLUCOSE METER, POINT OF CARE (03/11/2023 8:45 AM EST) Glucose Meter 145(H) 70 - 120 mg/dL 03/11/2023 9:13 AM EST [facility]00 Blood Whole blood specimen / Unknown 03/11/2023 8:45 AM EST 03/11/2023 9:13 AM EST Norberto Clarke MD LAB POINT OF C ARE TEST DOCKED DEVICE UNSOLICITED RESULTS [facility] [place] [address] documented in this encounter Administered Medications Inactive Administered Medications - up to 3 most recent administrations Medication Order MAR Action Action Date Dose Rate Site Diclofenac Sodium (Voltaren) 0.1 % ophthalmic solution 1 Drop 1 Drop, Left eye, Q5 MINUTES, First dose on Fri03/11/23 at 0915, Last dose on Fri03/11/23 at 0925, For 3 doses, PRE-OP: One drop to left eye every 5 minutes for 3 doses, Pre-Op Given 03/11/2023 9:12 AM EST 1 Drop Given 03/11/2023 9:07 AM EST 1 Drop Given 03/11/2023 8:43 AM EST 1 Drop isolyte-S pH 7.4 infusion Intravenous, at 75 mL/hr, Plasma-LYTE 148, isolyte-S, and isolyte-S pH 7.4 are considered equivalent - including for MAR barcode scanning., CONTINUOUS, Starting on Fri03/11/23 at 0915, Until Fri03/11/23 at 1522, Pre-Op Continue from Pre-Op 03/11/2023 9:42 AM EST 75 mL/hr New Bag 03/11/2023 8:51 AM EST 75 mL/hr proparacaine (Alcaine) 0.5 % ophthalmic solution 1 Drop 1 Drop, Left eye, ONCE, On Fri03/11/23 at 0915, For 1 dose, PRE-OP: 15 minutes prior to scheduled surgery time for 1 dose, Pre-Op Given 03/11/2023 8:43 AM EST 1 Drop Trimethoprim-Polymyxin B (Polytrim) ophthalmic solution 1 Drop 1 Drop, Left eye, Q5 MINUTES, First dose on Fri03/11/23 at 0915, Last dose on Fri03/11/23 at 09, For 3 doses, PRE-OP: One drop to left eye every 5 minutes for 3 doses, Pre-Op Given 03/11/2023 9:13 AM EST 1 Drop Given 03/11/2023 9:08 AM EST 1 Drop Given 03/11/2023 9:03 AM EST 1 Drop tropicamide 1%-cyclopentolate 1%-phenylephrine 2.5% ophthalmic solution 1 Drop 1 Drop, Left eye, Q5 MINUTES, First dose on Fri03/11/23 at 0915, Last dose on Fri03/11/23 at 0925, For 3 doses, Pre-Op Given 03/11/2023 9:12 AM EST 1 Drop Given 03/11/2023 9:07 AM EST 1 Drop Given 03/11/2023 8:43 AM EST 1 Drop documented in this encounter Active and Recently Administered Medications Due to Daylight Saving Time, this section may contain times in both EDT and EST. Scheduled Medication Order 03/09/2023 03/10/2023 03/11/2023 Diclofenac Sodium (Voltaren) 0.1 % ophthalmic solution 1 Drop (COMPLETED) 1 Drop, Left eye, Q5 MINUTES, First dose on Fri03/11/23 at 0915, Last dose on Fri03/11/23 at 0925, For 3 doses, PRE-OP: One drop to left eye every 5 minutes for 3 doses, Pre-Op 0843 (Given - Provid er: Taty Friend RN)0907 (Given - Provider: Taty Friend RN)0912 (Given - Provider: Taty Friend RN) Povidone-Iodine (Betadine) 5 % 2 mL syringe ophthalmic solution 1 Drop 1 Drop, Left eye, ONCE, On Fri03/11/23 at 0915, For 1 dose, Pre-Op 0915 (Due) proparacaine (Alcaine) 0.5 % ophthalmic solution 1 Drop (COMPLETED) 1 Drop, Left eye, ONCE, On Fri03/11/23 at 0915, For 1 dose, PRE-OP: 15 minutes prior to scheduled surgery time for 1 dose, Pre-Op 0843 (Given - Provid er: Taty Friend RN) Trimethoprim-Polymyxin B (Polytrim) ophthalmic solution 1 Drop (COMPLETED) 1 Drop, Left eye, Q5 MINUTES, First dose on Fri03/11/23 at 0915, Last dose on Fri03/11/23 at 0925, For 3 doses, PRE-OP: One drop to left eye every 5 minutes for 3 doses, Pre-Op 0903 (Given - Provid er: Taty Friend RN)0908 (Given - Provider: Taty Friend RN)0913 (Given - Provider: Taty Friend RN) tropicamide 1%-cyclopentolate 1%-phenylephrine 2.5% ophthalmic solution 1 Drop (COMPLETED) 1 Drop, Left eye, Q5 MINUTES, First dose on Fri03/11/23 at 0915, Last dose on Fri03/11/23 at 0925, For 3 doses, Pre-Op 0843 (Given - Provid er: Taty Friend RN)0907 (Given - Provider: Taty Friend RN)0912 (Given - Provider: Taty Friend RN) Continuous Medication Order 03/09/2023 03/10/2023 03/11/2023 isolyte-S pH 7.4 infusion Intravenous, at 75 mL/hr, Plasma-LYTE 148, isolyte-S, and isolyte-S pH 7.4 are considered equivalent - including for MAR barcode scanning., CONTINUOUS, Starting on Fri03/11/23 at 0915, Until Fri03/11/23 at 1522, Pre-Op 0851 (New Bag - Prov ider: Taty Friend RN)0942 (Continue from Pre-Op - Provider: Sammy Dahl CRNA)0955 (Anes Intra-Op Fluid - Provider: Sammy Dahl CRNA) PRN Medication Order 03/09/2023 03/10/2023 03/11/2023 balanced salt solution (Bss) ophthalmic solution (CANCELED) ONCE PRN INTRA PROCEDURE, Starting on Fri03/11/23 at 0953, Until Fri03/11/23 at 0957, Intra-Op 0953 (Given - Provid er: Norberto Clarke MD - Comment: qs) DUOVISC inj KIT (CANCELED) ONCE PRN INTRA PROCEDURE, Starting on Fri03/11/23 at 0954, Until Fri03/11/23 at 0957, Intra-Op 0954 (Given - Provid er: Norberto Clarke MD - Comment: qs) hydroxypropyl methylcellulose ([place]) 2 % intraocular inj (CANCELED) ONCE PRN INTRA PROCEDURE, Starting on Fri03/11/23 at 0951, Until Fri03/11/23 at 0957, Intra-Op 0951 (Given - Provid er: Nroberto Clarke MD - Comment: qs) Lidocaine 1 % (PF) inj (CANCELED) ONCE PRN INTRA PROCEDURE, Starting on Fri03/11/23 at 0953, Until Fri03/11/23 at 0957, Intra-Op 0953 (Given - Provid er: Norberto Clarke MD - Comment: qs) Moxifloxacin intracameral inj (CANCELED) ONCE PRN INTRA PROCEDURE, Starting on Fri03/11/23 at 0959, Until Fri03/11/23 at 0957, Intra-Op 0957 (Given - Provid er: Norberto Clarke MD - Comment: qs; Dr. Clarke aware of allergy and reaction) prednisoLONE Acetate (Pred Forte) 1 % ophthalmic suspension (CANCELED) ONCE PRN INTRA PROCEDURE, Starting on Fri03/11/23 at 1000, Until Fri03/11/23 at 0957, Intra-Op 0959 (Given - Provid er: Pamela Regan RN - Comment: qs) Tetracaine (Pontocaine) 0.5 % ophthalmic solution (CANCELED) ONCE PRN INTRA PROCEDURE, Starting on Fri03/11/23 at 0950, Until Fri03/11/23 at 0957, Intra-Op 0950 (Given - Provid er: Pamela Regan RN - Comment: qs) documented in this encounter Advance Directives Latest Code Status on File Code Status Date Activated Date Inactivated Comments Full Code 03/11/2023 8:34 AM 03/11/2023 3:22 PM This order reflects the patients wishes and were consensually agreed upon. Question Answer Comments Discussion of Advance Directives occurred with: Patient Does the patient have a Living Will? No Does the patient have Health Care Power of Civil Structural Designer? No Care Teams Protective Signal Repairer Relationship Specialty Start Date End Date Bunny Peña MD [address] [place] [address] PCP - General Family Medicine 11/02/18 documented as of this encounter
--- OUTSIDE RECORDS SUMMARY | 2023-04-22 06:53 | External Medical Summary | Summary of Care ---
Author Name Unknown Organization [facility] Address [address] [place] [address] Phone [phone] Care Team Providers Care Blintze Roller Name Role Phone Bunny Peña MD Primary Care Provider [phone] Reason for Visit * Reason Onset Date Comments Appointment 03/18/2023 Encounter Details Date Type Department Care Team (Late st Contact Info) Description 03/18/2023 Telephone Sleep Disorders, [facility] [address] [place] [address] Cornelius Echavarria PA-C [address] [place], [place] [id number] Appointment Allergies Active Allergy Reactions Criticality Noted Date Comments Pollen 11/02/2018 Seasonal allergies Levofloxacin In D5w Rash High 11/02/2018 Pantoprazole 01/30/2021 Leg cramps documented as of this encounter (statuses as of 03/18/2023) Medications Medication Sig Dispensed Refills Start Date End Date Status Fluticasone Propionate 50 MCG/ACT Nasal Suspension Administer 1 [place] into nostril in the morning. 0 Active [...] Additional Information Patient not taking.Reported on 02/27/2023 [facility] Advance Oral Tablet Take by [...] before bedtime. 0 01/31/2023 Active Polymyxin B-Trimethoprim 52741-9.1 UNIT/ML-% Ophthalmic Solution (Polytrim) Instill 1 Drop into the left eye every 6 hours. 0 01/30/2023 Active prednisoLONE Acetate 1 % Ophthalmic Suspension (Pred Forte) Instill 1 Drop into the left eye in the morning and 1 Drop at noon and 1 Drop in the evening and 1 Drop before bedtime. 0 01/30/2023 Active documented as of this encounter (statuses as of 03/18/2023) Active Problems Problem Noted Date Diagnosed Date [...] as of this encounter (statuses as of 03/18/2023) Resolved Problems Problem Noted Date Diagnosed Date [...] as of this encounter (statuses as of 03/18/2023) Immunizations Name Administration Dates Next Due COVID-19 [...] encounter Miscellaneous Notes * Telephone Encounter - Krys Ramos OSA - 03/18/2023 9:00 AM EST LMOM to call and reschedule return video sleep appt documented in this encounter Plan of Treatment Upcoming Encounters Date Type Department Care Team (Latest Contact Info) Description 04/08/2023 7:30 AM EST [facility] [place] [address] Norberto Clarke MD [address], [place] [id number] 04/08/2023 7:30 AM EST - 04/08/2023 7:56 AM EST Surgery OR [facility], Operating Room [facility] [address] [place] [id number] Norberto Clarke MD [address] [place] [address], [place] [address] RIGHT EXTRACAPSULAR CATARACT REMOVAL WITH INTRAOCULAR LENS 04/16/2023 8:20 AM EST Office Visit Family Practice [facility] [address] [facility] [place] [address] Bunny Peña MD [address] [facility] [place] [address] 09/30/2023 8:15 AM EDT Imaging Radiology [facility] [address] [facility] [place] [address] 11/20/2023 8:20 AM EDT Office Visit Dermatology[address] [address] Marian Gardner PA-C [address] [place] [address] [place] [address] Scheduled Procedures Name Priority Associated Diagnoses Date/Ti [...] this encounter Medical Devices Implanted Type Area Nanotechnology Engineering Technician Device Identifier Shelf Expiration Date Model / Serial / Lot Lens [id number] 13.00mm 14.00 - [id number] - [id number] Implanted:Qty: 1 on 03/11/2023 by Norberto Clarke MD at OR [facility] Left: Eye [employer] 09/02/2027 [id number] / [id number] / [id number] documented as of this encounter Advance Directives [...] the patient have Health Care Power of Senior Partner? No Care Teams Blintze Roller Relationship Specialty Start Date End Date Bunny Peña MD [address] [place] [address] PCP - General Family Medicine 11/02/18 documented as of this encounter
--- OUTSIDE RECORDS SUMMARY | 2023-04-22 06:53 | External Medical Summary | Summary of Care ---
Author Name Unknown Organization [facility] Address [address] [place] [address] Phone [phone] Care Team Providers Care Dimension Quarry Supervisor Name Role Phone Bunny Peña MD Primary Care Provider [phone] [phone] Reason for Visit * Reason Comments Hospital Follow-Up Shigella infection - patient states she is feeling better, bowel movements are normal, appetite back to normal, no nausea pre-op exam Cataract surgery - 1 05/11/2022 and 04/08/2023 Encounter Details Date Type Department Care Team (Late st Contact Info) Description 03/06/2023 9:40 AM EDT Office Visit Family Practice [facility] [address] [place] [address] Jaswinder Lomeli CRNP [address] [facility] [address] Hospital discharge follow-up*; Preop examination; Type 2 diabetes mellitus with hemoglobin A1c goal of less than 8.0% ([facility]); HTN, goal below 130/80; Dyslipidemia; Gastroesophageal reflux disease with esophagitis without hemorrhage; Acquired hypothyroidism; Obesity, Class II, BMI 35-39.9, isolated (see actual BMI); HERBERT (obstructive sleep apnea) Allergies Active Allergy Reactions Criticality Noted Date Comments Pollen 11/02/2018 Seasonal allergies Levofloxacin In D5w Rash High 11/02/2018 Pantoprazole 01/30/2021 Leg cramps documented as of this encounter (statuses as of 03/06/2023) Medications Medication Sig Dispensed Refills Start Date End Date Status Fluticasone Propionate 50 MCG/ACT Nasal Suspension Administer 1 [place] into nostril in the morning. 0 Active [...] Additional Information Patient not taking.Reported on 02/27/2023 [facility] Advance Oral Tablet Take by mouth [...] before bedtime. 0 01/31/2023 Active Polymyxin B-Trimethoprim 37444-6.1 UNIT/ML-% Ophthalmic Solution (Polytrim) Instill 1 Drop into the left eye every 6 hours. 0 01/30/2023 Active prednisoLONE Acetate 1 % Ophthalmic Suspension (Pred Forte) Instill 1 Drop into the left eye in the morning and 1 Drop at noon and 1 Drop in the evening and 1 Drop before bedtime. 0 01/30/2023 Active documented as of this encounter (statuses as of 03/06/2023) Active Problems Problem Noted Date Diagnosed Date Food insecurity 12/16/2022 Overview: Per [facility] Protocol HERBERT (obstructive sleep apnea) 11/01/2021 H/O dysplastic nevus 10/03/2021 Overview: Mildly atypical nevus (L distal neck) Fibromyalgia 07/16/2019 HTN, goal below 130/80 04/16/2019 Type 2 diabetes mellitus wit h hemoglobin A1c goal of less than 8.0% 04/13/2019 Acquired hypothyroidism 11/02/2018 Dyslipidemia 11/02/2018 Gastroesophageal reflux disease with esophagitis 11/02/2018 Morbid obesity 11/02/2018 documented as of this encounter (statuses as of 03/06/2023) Resolved Problems Problem Noted Date Diagnosed Date [...] as of this encounter (statuses as of 03/06/2023) Immunizations Name Administration Dates Next Due COVID-19 [...] Date Smoking Tobacco: Never Smokeless Tobacco: Never Tobacco Cessation:Counseling Given: Not Answered Alcohol Use Standard Drinks/Week Comments Never 0 [...] Sign Reading Time Taken Comments Blood Pressure 134/68 03/06/2023 9:47 AM EDT Pulse 95 03/06/2023 10:08 AM EDT Temperature 36.7 C (98.1 F) 03/06/2023 9:47 AM ED T Respiratory Rate 20 03/06/2023 9:47 AM EDT Oxygen Saturation - - Inhaled Oxygen Concentration - - Weight 111.1 kg (244 lb 14.4 oz) 03/06/2023 9:47 AM EDT Height - - Body Mass Index 39.53 02/27/2023 10:30 AM EDT documented in this encounter Progress Notes * Jaswinder Lomeli CRNP - 03/06/2023 9:51 AM EDT Images from the original note were not included. Pre-Operative Medical Evaluation Procedure Information Type of Surgery: Cataract surgery Referring Physician / Surgeon: Dr. Clarke Date of procedure: (L) 03/11/2023 and (R)04/08/2023 Brief History of Present Illness: 67 year old patient with diabetes, hypothyroidism, hyperlipidemia, GERD, hypertension, fibromyalgia, obesity, HERBERT, and others listed below. She was most recently hospitalized with dx of diarrhea secondary to Shigella infection to [facility] from 02/27/23-03/01/23. 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) (11/02/2018), Obesity, Class II, BMI 35-39.9, isolated (see actual BMI) (07/28/2021), HERBERT (obstructive sleep apnea) (11/01/2021), Primary osteoarthritis of left knee (10/18/2019), Recurrent major depressive disorder, in full remission ([facility]) (04/16/2019), Recurrent major depressive disorder, in partial remission ([facility]) (04/16/2019), and Type 2 diabetes mellitus with hemoglobin A1c goal of less than 7.0% ([facility]) (04/13/2019). Past Surgical History: has a past [...] Personal history of venous thromboembolic disease: no Physical Exam Vitals: 03/06/23 0947 Temp: 36.7 [...] follow-up Colitis secondary to Shigella infection to [facility] 02/27/23-03/01/23 WALKER, Cr improved 0.59 at discharge, A1C - 7Today she is asymptomatic. Most recent A1C during admission was 7. Preop examination Cataracts Knee surgery in April -- has f/u pcp appt same week Type 2 diabetes mellitus with hemoglobin A1c goal of less than 8.0% ([facility]) Cont glipizide, jardiance -- hold glipizide when [...] consults or testing: Not at this time documented in this encounter Nursing Notes * Nitin Quiroz, RN - 03/06/2023 9:45 AM EDT Chief Complaint Patient presents with Hospital Follow-Up Shigella infection - patient states she is feeling better, bowel movements are normal, appetite back to normal, no nausea pre-op exam Cataract surgery - 03/11/2023 and 04/08/2023 documented in this encounter Plan of Treatment Upcoming Encounters Date Type Department Care Team (Latest Contact Info) Description 03/11/2023 9:30 AM EST Hospital Encounter OR [facility], Operating Room [facility] [address] [facility] [place] [address] Norberto Clarke MD [facility] [address] [address] 03/11/2023 9:30 AM EST - 03/11/2023 10:06 AM EST Surgery OR [facility], Operating Room [facility] [address] [place] [address] Norberto Clarke MD [address] [place] [address] LEFT EXTRACAPSULAR CATARACT REMOVAL WITH INTRAOCULAR LENS 04/08/2023 7:30 AM EST Hospital Encounter OR [facility], Operating Room [facility] [address] [place] [address] Norberto Clarke MD [address] [place] [address] 04/08/2023 7:30 AM EST - 04/08/2023 7:56 AM EST Surgery OR [facility], Operating Room [facility] [address] [place] [address] Norberto Clarke MD [address] [place] [address] RIGHT EXTRACAPSULAR CATARACT REMOVAL WITH INTRAOCULAR LENS 04/16/2023 8:20 AM EST Office Visit Family Practice [facility] [address] [place] [address] Bunny Peña MD [address] [place] [address] 09/30/2023 8:15 AM EDT Imaging Radiology [address] [place] [address] 11/20/2023 8:20 AM EDT Office Visit [address] [address] KendraMarian hunter PA-C [address] [place] [address] [place] [address] Scheduled Procedures Name Priority Associated Diagnoses Date/Ti me EXTRACAPSULAR CATARACT REMOVAL WITH INTRAOCULAR LENS Combined forms of age-related cataract of left eye 03/11/2023 9:30 AM EST EXTRACAPSULAR CATARACT REMOVAL WITH INTRAOCULAR [...] as of this encounter Visit Diagnoses Diagnosis Hospital discharge follow-up- Primary Other follow-up examination Preop examination Preoperative examination, unspecified Type 2 diabetes mellitus with hemoglobin A1c goal of less than 8.0% (HCC) HTN, goal below 130/80 Unspecified essential hypertension Dyslipidemia Other and unspecified hyperlipidemia Gastroesophageal reflux disease with esophagitis without hemorrhage Acquired hypothyroidism Unspecified hypothyroidism Obesity, Class II, BMI 35-39.9, isolated (see actual BMI) Morbid obesity HERBERT (obstructive sleep apnea) Obstructive sleep apnea (adult) (pediatric) Combined forms of age-related cataract of left eye Other and combined forms of senile cataract Combined forms of age-related cataract of right eye Other and combined forms of senile cataract documented in this encounter Care Teams Dimension Quarry Supervisor Relationship Specialty Start Date End Date Bunny Peña MD [address] [place] [address] PCP - General Family Medicine 11/02/18 documented as of this encounter
--- OUTSIDE RECORDS SUMMARY | 2023-04-22 06:53 | External Medical Summary | Summary of Care ---
Author Name Unknown Organization [facility] Address [address] [place] [address] Phone [phone] Care Team Providers Care Radiologic Technologist Chief Name Role Phone Bunny Peña MD Primary Care Provider [phone] Encounter Details Date Type Department Care Team (Late st Contact Info) Description 03/05/2023 Telephone Pulmonary Medicine, [facility] [address] [place] [address] Sophy Duffy, [address] [place] [address] Allergies Active Allergy Reactions Criticality Noted Date Comments Pollen 11/02/2018 Seasonal allergies Levofloxacin In D5w Rash High 11/02/2018 Pantoprazole 01/30/2021 Leg cramps documented as of this encounter (statuses as of 03/05/2023) Medications Medication Sig Dispensed Refills Start Date End Date Status Fluticasone Propionate 50 MCG/ACT Nasal Suspension Administer 1 [place] into nostril in the morning. 0 Active [...] Information Patient not taking.Reported on 02/27/2023 [facility] Advance Oral Tablet Take by mouth [...] before bedtime. 0 01/31/2023 Active Polymyxin B-Trimethoprim 90362-4.1 UNIT/ML-% Ophthalmic Solution (Polytrim) Instill 1 Drop into the left eye every 6 hours. 0 01/30/2023 Active prednisoLONE Acetate 1 % Ophthalmic Suspension (Pred Forte) Instill 1 Drop into the left eye in the morning and 1 Drop at noon and 1 Drop in the evening and 1 Drop before bedtime. 0 01/30/2023 Active documented as of this encounter (statuses as of 03/05/2023) Active Problems Problem Noted Date Diagnosed Date [...] as of this encounter (statuses as of 03/05/2023) Resolved Problems Problem Noted Date Diagnosed Date [...] as of this encounter (statuses as of 03/05/2023) Immunizations Name Administration Dates Next Due COVID-19 [...] * Telephone Encounter - Matthew Perez - 03/05/2023 9:02 AM EDT Orders in 03/05 new cpap documented in this encounter Plan of Treatment Upcoming Encounters Date Type Department Care Team (Latest Contact Info) Description 03/06/2023 9:40 AM EDT Office Visit Family Practice [facility] [address] [place] [address] Jaswinder Lomeli CRNP [address] [place] [address] 03/11/2023 10:07 AM EST Hospital Encounter OR [facility], Operating Room [facility] [address] [place] [address] Norberto Clarke MD [address] [address] 03/11/2023 10:07 AM EST - 03/11/2023 10:43 AM EST Surgery OR [facility], Operating Room [facility] [address] [place] [address] Norberto Clarke MD [address] [address] LEFT EXTRACAPSULAR CATARACT REMOVAL WITH INTRAOCULAR LENS 04/08/2023 7:30 AM EST Hospital Encounter OR [facility], Operating Room [facility] [address] [place] [address] Norberto Clarke MD [address] [address] 04/08/2023 7:30 AM EST - 04/08/2023 7:56 AM EST Surgery OR [facility], Operating Room [facility] [address] [place] [address] Norberto Clarke MD [address] [address] RIGHT EXTRACAPSULAR CATARACT REMOVAL WITH INTRAOCULAR LENS 04/16/2023 8:20 AM EST Office Visit Family Practice [facility] [address] [place] [address] Bunny Peña MD [address] [place] [address] 09/30/2023 8:15 AM EDT Imaging Radiology [address] [place] [address] 11/20/2023 8:20 AM EDT [facility] [address] [facility] [place] [address] Marian Gardner PA-C [address] [place] [address] [place] [address] Scheduled Procedures Name Priority Associated Diagnoses Date/Ti [...] filedocumented as of this encounter Care Teams Radiologic Technologist Chief Relationship Specialty Start Date End Date Bunny Peña MD [address] [place] [address] PCP - General Family Medicine 11/02/18 documented as of this encounter
--- OUTSIDE RECORDS SUMMARY | 2023-04-22 06:53 | External Medical Summary | Summary of Care ---
Author Name Unknown Organization [facility] Address [address] [place] [address] Phone [phone] Care Team Providers Care Substitute Nurse Name Role Phone Bunny Peña MD Primary Care Provider [phone] Reason for Visit * Reason Onset Date Comments pre-op exam EXTRACAPSULAR CA TARACT REMOVAL WITH INTRAOCULAR LENS-- 03/04 & 03/11 Medication Administration 02/21/2023 Flu an d/or Pneumo Inj Encounter Details Date Type Department Care Team Description 02/21/2023 Office Visit Family Practice [facility] [address] [place] [address] Bety Calvin CRNP [address] [facility] [address] Pre-op evaluation*; Need for prophylactic vaccination and inoculation against influenza; DM type 2 nursing care encounter ([facility]); HERBERT (obstructive sleep apnea); Acquired hypothyroidism; HTN, goal below 130/80; Type 2 diabetes mellitus without complication, without long-term current use of insulin ([facility]); Dyslipidemia; Gastroesophageal reflux disease, unspecified [...] before bedtime. 0 01/31/2023 Active Polymyxin B-Trimethoprim 80050-1.1 UNIT/ML-% Ophthalmic Solution (Polytrim) Instill 1 Drop [...] Patient Instructions * Patient Instructions* Ginny Murdock, RESEARCH LAB ASSISTANT - 02/21/2023 10:12 AM EDT Diabetes: Keeping [...] calluses yourself. Talk to your doctor or inside sales representative (a doctor who specializes in foot care) [...] the area doesnt appear to be healing. [id number] [employer], [address] [place] [address], [place] [address]. All rights reserved. This information is not intended as a substitute for professional medical care. Always follow your healthcare professional's instructions. documented in this encounter Progress Notes * Ginny Murdock LPN - 02/21/2023 10:08 AM EDT PRE - ADMINISTRATION DOCUMENTATION Are you experiencing any cold symptoms or fever? No Have you had Guillain-[place] Syndrome (an illness that causes paralysis) within [...] Pt also has L knee replacement at [facility] with Dr. Pelayo on 04/22/2023. Thought she could use this appt to cover that. We have not received these in office. documented in this encounter Plan of Treatment Upcoming Encounters Date Type Specialty Care Team Description 03/04/2023 Hospital Encounter Surgery Norberto Clarke MD [address] [address] 03/04/2023 Surgery Surgery Norberto Clarke MD [address] [address] LEFT EXTRACAPSULAR CATARACT REMOVAL WITH INTRAOCULAR LENS 03/11/2023 Hospital Encounter Surgery Norberto Clarke MD [address] [address] 03/11/2023 Surgery Surgery Norberto Clarke MD [address] [address] RIGHT EXTRACAPSULAR CATARACT REMOVAL WITH INTRAOCULAR LENS 04/16/2023 Office Visit Family Medicine Bunny Peña MD [address] [place] [address] 09/30/2023 Imaging Radiology 11/20/2023 Office Visit Dermatology Marian Gardner PA-C [address] [place] [address] [place] [address] Scheduled Orders Name Type Priority Associated Diagnoses [...] cataract documented in this encounter Care Teams Substitute Nurse Relationship Specialty Start Date End Date Bunny Peña MD [address] [place] [address] PCP - General Family Medicine 11/02/18 documented as of this encounter
--- OUTSIDE RECORDS SUMMARY | 2023-04-22 06:54 | External Medical Summary | Summary of Care ---
Author Name Unknown Organization [facility] Address [address] [place] [address] Phone [phone] Care Team Providers Care Emergency Veterinary Assistant Name Role Phone Ksenia Flannery MD Primary Care Provider [phone] Reason for Visit * Reason Comments eRx-Medication Refill Encounter Details Date Type Department Care Team Description 12/18/2022 Refill Family Practice [facility] [address] [facility] [place] [address] Ksenia Flannery MD [address] [facility] [place] [address] Allergies Active Allergy Reactions Severity Noted Date Comments Pollen 11/02/2018 Seasonal allergies Levofloxacin In D5w Rash High 11/02/2018 Pantoprazole 01/30/2021 Leg cramps documented as of this encounter (statuses as of 12/18/2022) Medications Medication Sig Dispensed Refills Start Date End Date Status Fluticasone Propionate 50 MCG/ACT Nasal Suspension Administer 1 [place] into nostril in the morning. 0 Active B Complex Vitamins (B COMPLEX 50) TABS Take by mouth. 0 Active Cholecalciferol 50 MCG (2000 UT) Oral Capsule Take 1 Capsule by mouth in the morning. 0 Active Ascorbic Acid (VITAMIN C) 100 MG Tablet Take 1 Tablet by mouth in the morning. 0 Active Coenzyme Q10 (COQ10) 100 MG CAPS Take by mouth. 0 Active Triamcinolone Acetonide 0.1 % External Ointment (Aristocort)Indica tions:Hand dermatitis Apply to rash on hands 2x daily (or more if itchy instead of scratching) until resolved 30 g 0 08/29/2020 Active Albuterol Sulfate HFA 108 (90 Base) MCG/ACT Inhalation Aerosol SolutionIndication s:Suspected COVID-19 virus infection Inhale 2 Puffs by mouth every 6 hours as needed for Cough. 18 g 1 05/25/2021 Active Move Free Joint Health Advance Oral Tablet Take by mouth . 0 Active Levothyroxine Sodium 150 MCG Oral Tablet (Synthroid) Take 1 Tablet by mouth in the morning. (at least 30 min prior to breakfast or other meds). 90 Tablet 3 08/07/2022 Active RABEprazole Sodium 20 MG Oral Tablet Delayed Release Take 1 Tablet by mouth in the morning. 90 Tablet 1 08/07/2022 Active glipiZIDE 5 MG Oral Tablet (Glucotrol) TAKE 1 TABLET TWICE A DAY, 30 MINUTES BEFORE MEALS 180 Tablet 3 08/07/2022 Active Fenofibrate 145 MG Oral Tablet (Tricor) Take 1 Tablet by mouth in the morning. In the morning.. 90 Tablet 3 08/07/2022 Active amLODIPine-Olmesar harris 10-20 MG Oral Tablet Take 1 Tablet by mouth in the morning. 90 Tablet 3 08/07/2022 Active Jardiance 25 MG Oral Tablet (Empagliflozin)Ind ications:Type 2 diabetes mellitus without complications (HCC) TAKE 1 TABLET BY MOUTH EVERY DAY IN THE MORNING 90 Tablet 1 10/22/2022 Active Montelukast Sodium 10 MG Oral Tablet (Singulair) TAKE 1 TABLET BEFORE BEDTIME 90 Tablet 2 12/18/2022 Active Montelukast Sodium 10 MG Oral Tablet (Singulair) Take by mouth 1 Tablet before bedtime. 90 Tablet 3 11/13/2021 12/19/19 23 Discontinued documented as of this encounter (statuses as of 12/18/2022) Active Problems Problem Noted Date HERBERT (obstructive sleep apnea) 11/01/2021 H/O [...] as of this encounter (statuses as of 12/18/2022) Resolved Problems Problem Noted Date Resolved Date Food insecurity 01/14/2022 06/19/2022 Overview: Per [facility] Protocol At risk for obstructive sleep apnea 07/28/2021 11/01/2021 Primary osteoarthritis of left knee 10/18/2019 11/02/2021 Recurrent major depressive disorder, in partial remission 04/16/2019 11/02/2021 Chronic pain of left knee 11/02/20182019 Morbid obesity due to excess calories 11/02/2018 07/28/2021 Impaired fasting glucose 11/02/2018 019 documented as of this encounter (statuses as of 12/18/2022) Immunizations Name Administration Dates Next Due COVID-19 mRNA, LNP-s, No Pre serve, 2-Dose Series (Moderna) 06/12/2020,2020 Pneumococcal Conjugate Vaccine, 20-valent (Prevn ar20) 11/02/2021 Pneumococcal Polysaccharide PPV23 (Pneumovax) Seasonal Influenza Virus Vac cine, Unspecified Formulation 01/23/2022,01/17/2019 Seasonal Influenza, Quadriva lent, No Preserve, 6 Mons & Above, IM 02/17/2020,01/17/2019 TDAP (age 10 and older)(Boostrix) 06/04/2017 Zoster [...] encounter Miscellaneous Notes * Telephone Encounter - Nitin Gomes RPh - 12/18/2022 12:22 PM EDT Signed Prescriptions: Disp Refills Montelukast Sodium 10 MG Oral Tablet (Sing*90 Tab*2 Sig: TAKE 1 TABLET BEFORE BEDTIMEAuthorizing Provider: KSENIA FLANNERY User: NITIN GOMES- documented in this encounter Plan of Treatment Upcoming Encounters Date Type Specialty Care Team Description 01/21/2023 Office Visit Family Medicine Ksenia Flannery MD [address] [place] [id number] 02/21/2023 Office Visit Family Medicine Ksenia Flannery MD [address] [place] [id number] 09/30/2023 Imaging Radiology 11/20/2023 Office Visit Dermatology Marian Gardner PA-C [address] [place] [address] [place] [id number] Scheduled Procedures Name Priority Associated Diagnoses Date/Ti me COLONOSCOPY FLEXIBLE PROXIMA L DIAGNOSTIC Recall History of adenomatous polyp of colon Health Maintenance Due Date Last Done Comments Hepatitis C Screening 1974 Cologuard 2001 Fecal Occult Blood Test 2001 Sigmoidoscopy 2001 COVID-19 Vaccine (3 - Moderna series) 08/07/2020 06/12/2020, 2020 Depression Screening, Annual for Pts 12 and Over 05/26/2021 05/26/2020 DIABETES-EYE EXAM 09/07/2021 09/07/2020 Albumin/Creatinine Ratio 10/31/2022 10/31/2021 DIABETES-FOOT EXAM 11/02/2022 11/02/2021, 04/18/2020 HbA1c 12/18/2022 06/20/2022, 10/04, 01/26/2021, Additional history exists Influenza Vaccine (FLU shot) (#1) 2023 01/23/2022, 02/17/2020, 01/17/2019, Additional history exists GFR 06/20/2023 06/20/2022, 01/04, 05/26/2020, Additional history exists TSH 06/20/2023 06/20/2022, 10/04, 05/26/2020, Additional history exists Mammogram 09/27/2023 09/26/2022, 09/02, 06/14/2020, Additional history exists Lipid Panel 10/31/2026 10/31/2021, 10/03, 04/10/2019 DTaP,Tdap,and Td Vaccines (2 - Td or Tdap) 06/04/2027 06/04/2017 DXA Scan 11/11/2029 11/11/2022 Colonoscopy 08/16/2030 08/16/2020, 08/16/2020 Colorectal Cancer Screening 08/16/2030 Zoster Vaccines Completed 10/18/2019, 07/16/2019 Pneumococcal Vaccine: 65+ Years Completed 11/02/2021, 07/16/2019 GARDASIL-HPV IMMUNIZATION SERIES Aged Out No longer eligible based on patient's age to complete this topic Hepatitis B Aged Out No longer eligi ble based on patient's age to complete this topic MENINGOCOCCAL (MENACTRA/MENVEO) Aged Out No longer eligible based on patient's age to complete this topic documented as of this encounter Medical Devices Not on filedocumented as of this encounter Care Teams Emergency Veterinary Assistant Relationship Specialty Start Date End Date Ksenia Flannery MD [address] [place] [address] PCP - General Family Medicine 11/02/18 documented as of this encounter
--- OUTSIDE RECORDS SUMMARY | 2023-04-22 06:54 | External Medical Summary | Continuity of Care Document ---
Author Name Unknown Organization [id number] Address [address] [place] [id number] Care Team Providers Care Credit Rating Checker Name Role Phone Bunny Peña Primary Care Physician [phone] Encounter [id number] Date(s): 10/24/22 - 10/24/22 [facility] [address] [place] [id number] [facility] [address] [place] [id number] Encounter Diagnosis OA (osteoarthritis) of knee(Discharge Diagnosis) - 10/24/22 Discharge Disposition: Home or Self Care Attending Physician: MD Pelayo Dov A Allergies, Adverse Reactions, Alerts Substance Reaction Severity Status Levaquin rash Active Assessment and Plan Extracted from: Title:Bilateral knee OA Author:MD Pelayo Dov A Date:10/24/22 OUTPATIENT NOTE Name: DIANNE PENA Patient Number:[id number] : 1955 Date of Service: 10/24/2022 CHIEF COMPLAINT: Bilateral knee pain. HISTORY OF PRESENT ILLNESS: Dianne is a pleasant 67-year-old female, who I am following for her bilateral knee OA. She is also status post right knee arthroscopy, extensive debridement, partial medial lateral meniscectomies, chondroplasty: Patellofemoral compartment, medial compartment, lateral tibial plateau, February 23, 2021. Patient recently had a fall on October 07, 2022 and had worsening knee pain afterward. She has been taking Tylenol and ibuprofen at night for pain. She presents today complaining of left knee pain and would like a cortisone injection. Her last cortisone injection was July 16, 2022 without expected relief. She currently rates her left knee pain a 8/10 and right knee a 1/10. She would be looking at a left TKA around the time of [employer] winter break. She denies any systemic or mechanical symptoms on the right, but does note some occasional swelling of the left knee. ROS: Noted in the HPI. PHYSICAL EXAM: Focusing on the patient's bilateral lower extremities: 2+ DP pulse Sensation to light touch is intact Motor to the gastroc soleus, tibialis anterior, and EHL is 5/5. Able to perform straight leg raise. + Medial joint line tenderness left - Rafaela's Ligamentous examination exhibits: Stable Yesenia 0 mm anterior translation and firm endpoint Posterior drawer stable Varus valgus stress at 0 and 30 stable Valgus stress at 0 and 30 stable - Effusion on right Trace Effusion on left Bilateral knee range of motion 0 125. + Tenderness to palpation inferior pole of patella, left Palpable romero's cyst, left Previous right knee incisions well-healed Healing abrasion over tibial tubercle and patellar tendon without evidence of infection, left RADIOGRAPHS: I obtained and personally interpreted bilateral knee OA series which included: Hips to ankles, 45 degree flexion PA view, AP standing, lateral, and sunrise views of both knees compared to 2021 which showed progressed left knee medial joint space narrowing greater than right, marginal osteophytes, sclerosis. The left knee with near [id number]. 8 degrees varus alignment on the right and 4 degrees varus alignment on the left. IMPRESSION: 1) Bilateral knee OA, varus alignment, chronic. 2) Left knee exacerbation of degenerative changes Goal: Decrease pain PLAN: After a lengthy discussion with the patient today regarding my above clinical findings, as well as reviewing their imaging with them, their treatment options of conservative management with injections, activity modifications versus surgical intervention with a knee replacement were discussed. - The risk and benefits of each were discussed. The risks of surgery included but not limited to: Infection, bleeding, nerve damage, continued pain, failure of hardware, deep vein thrombosis, PE, stroke, [place], and . - They would like to proceed with surgery for left TKA some time in April 2023 - Will obtain medical clearance from PCP prior to proceeding with surgery. - In the meantime, they elected to have a left knee cortisone injection today. Discussed this will likely be her last cortisone injection before surgery to prevent risk of infection. She is a candidate for a right knee cortisone injection if needed. - They will RICE and Short course of anti-inflammatories (600 mg TID), alternating with Tylenol as needed for pain. - They will speak with my care team coordinator scheduler and have a history and physical examination performed. The patient understood all my instructions and explanation; all their questions were satisfactorily addressed. PROCEDURE: After obtaining verbal consent, performing a time-out, identifying theleftknee as the correct knee for intra-articular cortisone injection, the anterolateral portal area was palpated and marked. Thai Jauregui, my nurse was present to verify the procedure and site.This area was prepped with Betadine, followed by ethyl chloride spray and alcohol wipe. Then, a combination of 2 mL of 1% lidocaine plain plus 1 mL of 0.5% Bupivacaineplain plus 1mL of 40 mg of Depo-Medrol were easily injected. The patient rates a 5/10 pain after injection. The area was cleaned and dried and a Band-Aid was placed on the top. The patient will follow all of my above-noted instructions. ATTESTATION: I, Lulu Schultz, scribing forand in the presence of, Ed Pelayo, on this date, 10/24/2022 09:25:05. I, Dr. Pelayo, saw and examined the patient with Lulu Schultz acting as my scribe. I reviewed the note and agree with the documented findings and the plan of care I developed. This chart was completed utilizing [employer] voice recognition software. Grammatical errors, random word insertions, pronoun errors, and incomplete sentences are an occasional consequence of the system. Any questions or concerns about the content, text, or information contained within the body of this dictation should be addressed directly to the author for clarification. _ Medications amLODIPine-olmesartan 10 mg-20 mg oral tablet TAKE 1 TABLET BY MOUTH EVERY DAY Start Date: 11/30/20 Status: Ordered B-12 Start: 11/30/20 10:50:00 EDT, 1,000 mcg =, PO, Daily Start Date: 11/30/20 Status: Ordered Calcium and Magnesium oral tablet [...] Disp# 12 mL, Refills: 0, MAIL TO [facility], Note to Pharmacy: B/L OA M17.0, Pharmacy: [facility] Start Date: 04/09/21 Stop [...] 30 tab Start Date: 03/20/22 Status: Ordered montelukast 10 mg oral tablet Start: 11/30/20 10:49:00 EDT, 1 tab, PO, qPM Start Date: 11/30/20 Status: Ordered Osteo Bi-Flex Start: 11/30/20 10:53:00 EDT, 2 daily Start Date: 11/30/20 Status: Ordered Synthroid 150 mcg (0.15 mg) oral tablet Start: 11/30/20 10:49:00 EDT, 1 tab, PO, Daily Start Date: 11/30/20 Status: Ordered Vitamin C Start: 11/30/20 10:51:00 EDT, 1,000 mg =, PO, Daily Start Date: 11/30/20 Status: Ordered Vitamin D3 Start: 11/30/20 10:51:00 EDT, 5000 iu, PO, Daily Start Date: 11/30/20 Status: Ordered Mental Status 10/24/22 Barriers to Learning one year None evide nt Mandatory Health Literacy Documentation Yes Health Literacy Communication Barriers N ever Primary Language Hungarian Problem List Condition Confirmation Course Effective Dates [...] Dates Health Status Cl inical Service Informant OA (osteoarthritis) of knee Discharge Diagnosis 10/24/22 Non-Specified Procedures Procedure Date Related Diagnosis Body Site Status Arthroscopy of knee with med ial and lateral meniscectomy 1 02/23/21 Completed section 2 Comple kait History of orthopedic surgery 3 Completed Lumpectomy Completed Tonsillectomy Completed 1Right knee arthroscopy, PMM and PLM, chondroplasty, extensive debridement 23 33 on left knee Social History Social History Type Response Smoking Status Never smoked cigaret cuong Sex Female Outpatient Note * MD Gita, Ed A: PERFORM, MODIFY MD Gita, Ed A: MODIFY Lulu Schultz: MODIFY Event Display: .Outpt Note Authored Date: [id number] OUTPATIENT NOTE Name: DIANNE PENA Patient Number:[id number] : 1955 Date of Service: 10/24/2022 CHIEF COMPLAINT: Bilateral knee pain. HISTORY OF PRESENT ILLNESS: Dianne is a pleasant 67-year-old female, who I am following for her bilateral knee OA. She is also status post right knee arthroscopy, extensive debridement, partial medial lateral meniscectomies, chondroplasty: Patellofemoral compartment, medial compartment, lateral tibial plateau, February 23, 2021. Patient recently had a fall on October 07, 2022 and had worsening knee pain afterward. She has been taking Tylenol and ibuprofen at night for pain. She presents today complaining of left knee pain and would like a cortisone injection. Her last cortisone injection was 2022 without expected relief. She currently rates her left knee pain a 8/10 and right knee a 1/10. She would be looking at a left TKA around the time of [employer] winter break. She denies any systemic or mechanical symptoms on the right, but does note some occasional swelling of the left knee. ROS: Noted in the HPI. PHYSICAL EXAM: Focusing on the patient's bilateral lower extremities: 2+ DP pulse Sensation to light touch is intact Motor to the gastroc soleus, tibialis anterior, and EHL is 5/5. Able to perform straight leg raise. + Medial joint line tenderness left - Rafaela's Ligamentous examination exhibits: Stable Yesenia 0 mm anterior translation and firm endpoint Posterior drawer stable Varus valgus stress at 0 and 30 stable Valgus stress at 0 and 30 stable - Effusion on right Trace Effusion on left Bilateral knee range of motion 0125. + Tenderness to palpation inferior pole of patella, left Palpable romero's cyst, left Previous right knee incisions well-healed Healing abrasion over tibial tubercle and patellar tendon without evidence of infection, left RADIOGRAPHS: I obtained and personally interpreted bilateral knee OA series which included: Hips to ankles, 45 degree flexion PA view, AP standing, lateral, and sunrise views of both knees compared to 2021 which showed progressed left knee medial joint space narrowing greater than right, marginal osteophytes, sclerosis. The left knee with near [id number]. 8 degrees varus alignment on the right and 4 degreesvarus alignment on the left. IMPRESSION: 1) Bilateral knee OA, varus alignment, chronic. 2) Left knee exacerbation of degenerative changes Goal: Decrease pain PLAN: After a lengthy discussion with the patient today regarding my above clinical findings, as well as reviewing their imaging with them, their treatment options of conservative management with injections, activity modifications versus surgical intervention with a knee replacement were discussed. - The risk and benefits of each were discussed. The risks of surgery included but not limited to: Infection, bleeding, nerve damage, continued pain, failure of hardware, deep vein thrombosis, PE, stroke, [place], and . - They would like to proceed with surgery for left TKA some time in April 2023 - Will obtain medical clearance from PCP prior to proceeding with surgery. - In the meantime, they elected to have a left knee cortisone injection today. Discussed this will likely be her last cortisone injection before surgery to prevent risk of infection. She is a candidate for a right knee cortisone injection if needed. - They will RICE and Short course of anti-inflammatories (600 mg TID), alternating with Tylenol as needed for pain. - They will speak with my care team coordinator scheduler and have a history and physical examination performed. The patient understood all my instructions and explanation; all their questions were satisfactorilyaddressed. PROCEDURE: After obtaining verbal consent, performing a time-out, identifying theleftknee as the correct knee for intra-articular cortisone injection, the anterolateral portal area was palpated and marked. Thai Jauregui, my nurse was present to verify the procedure and site.This area was prepped with Betadine, followed by ethyl chloride spray and alcohol wipe. Then, a combination of 2 mL o f 1% lidocaine plain plus 1 mL of 0.5% Bupivacaineplain plus 1mL of 40 mg of Depo-Medrol were easily injected. The patient rates a 5/10 pain after injection. The area was cleaned and dried and a Band-Aid was placed on the top. The patient will follow all of my above-noted instructions. ATTESTATION: I, Lulu Schultz, scribing forand in the presence of, Ed Pelayo, on this date, 10/24/2022 09:25:05. I, Dr. Pelayo, saw and examined the patient with Lulu Schultz acting as my scribe. I reviewed the note and agree with the documented findings and the plan of care I developed. This chart was completed utilizing [employer] voice recognition software. Grammatical errors,random word insertions, pronoun errors, and incomplete sentences are an occasional consequence of the system. Any questions or concerns about the content, text, or information contained within the body of this dictation should be addressed directly to the author for clarification. _ Electronic Signature on File Electronically Reviewed/Signed by: Ed Pelayo MD Author Signature Dt/Tm:10/24/2022 12:02 PM [facility] [employer] Consultant Department of Orthopaedics and Rehabilitation [facility] [address], [place] [address] [place] /[place] Patient Care team information Care Team Personnel Name: MD Peña Anthony J Position: Referring DIRECT Member Role: Primary Care Provider Address: Address: [address] [place] [address] Care Team Related Persons Name: MANJIT PENA Address: home [address] [place] [phone]
--- OUTSIDE RECORDS SUMMARY | 2023-04-22 06:54 | External Medical Summary | Summary of Care ---
Author Name Unknown Organization [facility] Address [address] [place] [address] Phone [phone] Care Team Providers Care Generator Operator Name Role Phone Bunny Peña MD Primary Care Provider [phone] Encounter Details Date Type Department Care Team Description 11/14/2022 [facility], [facility] [address] [facility] [place] [id number] Dora Jauregui CRNP [address] [place] [id number] Periorbital cellulitis of right eye* Allergies Active Allergy Reactions Severity Noted Date Comments Pollen 11/02/2018 Seasonal allergies Levofloxacin In D5w Rash High 11/02/2018 Pantoprazole 01/30/2021 Leg cramps documented as of this encounter (statuses as of 11/14/2022) Medications Medication Sig Dispensed Refills Start Date End Date Status Fluticasone Propionate 50 MCG/ACT Nasal Suspension Administer 1 [place] into nostril in the morning. 0 Active [...] g 1 05/25/2021 Active Move Free Joint [facility] Advance Oral Tablet Take by mouth . 0 Active Montelukast Sodium 10 MG Oral Tablet (Singulair) Take by mouth 1 Tablet before bedtime. 90 Tablet 3 11/13/2021 Active Levothyroxine Sodium 150 MCG Oral Tablet [...] THE MORNING 90 Tablet 1 10/22/2022 Active Cephalexin 500 MG Oral CapsuleIndications:P eriorbital cellulitis of right eye Take 1 Capsule by mouth in the morning and 1 Capsule before bedtime. Do all this for 10 days. 20 Capsule 0 11/14/2022 11/24/2022 Active documented as of this encounter (statuses as of 11/14/2022) Active Problems Problem Noted Date HERBERT (obstructive [...] as of this encounter (statuses as of 11/14/2022) Resolved Problems Problem Noted Date Resolved Date Food insecurity 01/14/2022 06/19/2022 Overview: Per [facility] Protocol At risk for obstructive sleep apnea 07/28/2021 11/01/2021 Primary osteoarthritis of left knee 10/18/2019 11/02/2021 Recurrent major depressive disorder, in partial remission 04/16/2019 11/02/2021 Chronic pain of left knee 11/02/20182019 Morbid obesity due to excess calories 11/02/2018 07/28/2021 Impaired fasting glucose 11/02/2018 019 documented as of this encounter (statuses as of 11/14/2022) Immunizations Name Administration Dates Next Due COVID-19 [...] on file documented as of this encounter Progress Notes * TERA Martinez - 11/14/2022 7:47 AM EDT Images from the original note were not included. Patient location: HOME. I was in a hospital or clinic location. After connecting through [facility],patient was verified with two unique identifiers. Patient (or authorized legal litigation claim representative) was then informed that this was a Telemedicine visit and being conducted confidentially over secure lines. Methods to assure confidentiality were taken. Patient acknowledged consent and understanding of pr ivacy and security of the Telemedicine visit. The patient agreed to participate. History of Present Illness Dianne De Paz is a 67 year old female that presents for No chief complaint on file. Dianne is a patient of Dr Peña in [facility] Acute appointment for eye redness Sates she had swelling in upper eye lid last night but wok up this am with increased swelling and tenderness in upper lid No redness or drainage from eye Vision is normal Physical Exam There were no vitals filed for this visit. General: alert, healthy and no distress Eye Exam: conjunctiva are pink and non-injected, right eye upper lid with swelling and erythema,no drainage Lungs: breathing is non-labored without audible wheezing Neuro Exam: alert & oriented x 3 with fluent speech Assessment and Plan Periorbital cellulitis of right eye (Primary) - Cephalexin 500 MG Oral Capsule; Take 1 Capsule by mouth in the morning and 1 Capsule before bedtime. Do all this for 10 days. Follow up in 2-3 days if no improvement or sooner if symptoms worsen. documented in this encounter Plan of Treatment Upcoming Encounters Date Type Specialty Care Team Description 01/21/2023 Office Visit Family Medicine Bunny Peña MD [address] [facility] [place] [address] 02/21/2023 Office Visit Family Medicine Bunny Peña MD [address] [place] [address] 09/30/2023 Imaging Radiology 11/20/2023 Office Visit Dermatology Marian Gardner PA-C [address] [place] [address] [place] [address] Scheduled Procedures Name Priority Associated Diagnoses Date/Ti [...] as of this encounter Visit Diagnoses Diagnosis Periorbital cellulitis of right eye- Primary documented in this encounter Care Teams Generator Operator Relationship Specialty Start Date End Date Bunny Peña MD [address] [place] [address] PCP - General Family Medicine 11/02/18 documented as of this encounter
--- OUTSIDE RECORDS SUMMARY | 2023-04-22 06:54 | External Medical Summary | Summary of Care ---
Author Name Unknown Organization [facility] Address [address] [place] [address] Phone [phone] Care Team Providers Care Atg Architect Name Role Phone Ksenia Flannery MD Primary Care Provider [phone] Reason for Visit * Reason Comments eRx-Medication Refill Encounter Details Date Type Department Care Team Description 01/20/2023 Refill Family Practice [facility] [address] [facility] [place] [address] Ksenia Flannery MD [address] [facility] [place] [address] Allergies Active Allergy Reactions Severity Noted Date Comments Pollen 11/02/2018 Seasonal allergies Levofloxacin In D5w Rash High 11/02/2018 Pantoprazole 01/30/2021 Leg cramps documented as of this encounter (statuses as of 01/20/2023) Medications Medication Sig Dispensed Refills Start Date End Date Status Fluticasone Propionate 50 MCG/ACT Nasal Suspension Administer 1 [place] into nostril in the morning. 0 Active [...] THE MORNING 90 Tablet 2 01/20/2023 Active RABEprazole Sodium 20 MG Oral Tablet Delayed Release Take 1 Tablet by mouth in the morning. 90 Tablet 1 08/07/2022 01/21/20 23 Discontinued documented as of this encounter (statuses as of 01/20/2023) Active Problems Problem Noted Date Food insecurity 12/16/2022 Overview: Per [facility] Protocol HERBERT (obstructive sleep apnea) 11/01/2021 [...] as of this encounter (statuses as of 01/20/2023) Resolved Problems Problem Noted Date Resolved Date [...] as of this encounter (statuses as of 01/20/2023) Immunizations Name Administration Dates Next Due COVID-19 mRNA, LNP-s, No Pre serve, 2-Dose Series (Moderna) 06/12/2020,2020 Pneumococcal Conjugate Vaccine, 20-valent (Prevn ar20) 11/02/2021 Pneumococcal Polysaccharide PPV23 (Pneumovax) Seasonal Influenza Virus Vac cine, Unspecified Formulation 01/23/2022,01/17/2019 Seasonal Influenza, PF, 6 mo ns & Above, IM , (Flulaval) 02/17/2020,01/17/2019 TDAP (age 10 and older)(Boostrix) 06/04/2017 [...] encounter Miscellaneous Notes * Telephone Encounter - Raúl Cai ely - 01/20/2023 3:00 PM EDTSigned Prescriptions: Disp Refills RABEprazole Sodium 20 MG Oral Tablet Delay*90 Tab*2 Sig: TAKE 1 TABLET IN THE MORNINGAuthorizing Provider: KSENIA FLANNERY User: RAÚL CAI--- documented in this encounter Plan of Treatment Upcoming Encounters Date Type Specialty Care Team Description 02/19/2023 Office Visit Family Medicine Ksenia Flannery MD [address] [place] [address] 02/21/2023 Office Visit Family Medicine Ksenia Flannery MD [address] [place] [address] 09/30/2023 Imaging Radiology 11/20/2023 Office Visit Dermatology Marian Gardner PA-C [address] [place] [address] [place] [address] Scheduled Procedures Name Priority Associated Diagnoses Date/Ti me COLONOSCOPY FLEXIBLE PROXIMA L DIAGNOSTIC Recall History of adenomatous polyp of colon Health Maintenance Due Date Last Done Comments Hepatitis C Screening 1974 Cologuard 2001 Fecal Occult Blood Test 2001 Sigmoidoscopy 2001 COVID-19 Vaccine (3 - Moderna series) 08/07/2020 06/12/2020, 2020 Depression Screening 05/26/2021 05/26/2020 DIABETES-EYE EXAM 09/07/2021 09/07/2020 Albumin/Creatinine Ratio 10/31/2022 10/31/2021 Diabetic Foot Exam 11/02/2022 11/02/2021, 04/18/2020 HbA1c 12/18/2022 06/20/2022, 10/04, [...] filedocumented as of this encounter Care Teams Atg Architect Relationship Specialty Start Date End Date Casey, Ksenia Biju, MD [address] [place] [address] PCP - General Family Medicine 11/02/18 documented as of this encounter
--- OUTSIDE RECORDS SUMMARY | 2023-04-22 06:54 | External Medical Summary | Summary of Care ---
Author Name Unknown Organization [facility] Address [address] [place] [address] Phone [phone] Care Team Providers Care Siderographist Name Role Phone Bunny Peña MD Primary Care Provider [phone] Encounter Details Date Type Department Care Team Description 10/28/2022 Orders Only Outcomes Research Department [address] [place] [address] Ruth Anderson CHRA [facility] Other*[id number] Allergies Active Allergy Reactions Severity Noted Date Comments Pollen 11/02/2018 Seasonal allergies Levofloxacin In D5w Rash High 11/02/2018 Pantoprazole 01/30/2021 Leg cramps documented as of this encounter (statuses as of 10/28/2022) Medications Medication Sig Dispensed Refills Start Date End Date Status Fluticasone Propionate 50 MCG/ACT Nasal Suspension Administer 1 [place] into nostril in the morning. 0 Active [...] g 1 05/25/2021 Active Move Free Joint [facility] Advance Oral Tablet Take by [...] THE MORNING 90 Tablet 1 10/22/2022 Active documented as of this encounter (statuses as of 10/28/2022) Active Problems Problem Noted Date HERBERT (obstructive [...] as of this encounter (statuses as of 10/28/2022) Resolved Problems Problem Noted Date Resolved Date [...] as of this encounter (statuses as of 10/28/2022) Immunizations Name Administration Dates Next Due COVID-19 [...] more drinks on one occasion? Not asked Sex Assigned at Date Recorded Female 09/25/2021 10:03 AM EDT Job Start Date Occupation Industry Not on file Not on file Not on file documented as of this encounter Plan of Treatment Upcoming Encounters Date Type Specialty Care Team Description 11/11/2022 Imaging Radiology 01/21/2023 Office Visit Family Medicine Bunny Peña MD [address] [place] [address] 09/30/2023 Imaging Radiology 11/20/2023 Office Visit Dermatology Marian Gardner PA-C [address] [place] [address] [place] [address] Scheduled Orders Name Type Priority Associated Diagnoses Orde r Schedule MYCODE SUBSEQUENT ADULT Lab Routine [facility] Other*[id number] Every 6 Months for 2 Occurrences starting 10/28/2022 until 11/17/2023 Scheduled Procedures Name Priority Associated Diagnoses Date/Ti me COLONOSCOPY FLEXIBLE PROXIMA L DIAGNOSTIC Recall History of adenomatous polyp of colon Health Maintenance Due Date Last Done Comments DXA Scan 1956 Hepatitis C Screening 1974 Cologuard 2001 Fecal Occult Blood Test 2001 Sigmoidoscopy 2001 COVID-19 Vaccine (3 - Moderna series) 08/07/2020 06/12/2020, 2020 Depression Screening, Annual for Pts 12 and Over 05/26/2021 05/26/2020 DIABETES-EYE EXAM 09/07/2021 09/07/2020 Albumin/Creatinine Ratio 10/31/2022 10/31/2021 DIABETES-FOOT EXAM 11/02/2022 11/02/2021, 04/18/2020 HbA1c 12/18/2022 06/20/2022, 10/04, 01/26/2021, Additional history exists GFR 06/20/2023 06/20/2022, 01/04, 05/26/2020, Additional history exists TSH 06/20/2023 06/20/2022, 10/04, 05/26/2020, Additional history exists Mammogram 09/27/2023 09/26/2022, 09/02, 06/14/2020, Additional history exists Lipid Panel 10/31/2026 10/31/2021, 10/03, 04/10/2019 DTaP,Tdap,and Td Vaccines (2 - Td or Tdap) 06/04/2027 06/04/2017 Colonoscopy 08/16/2030 08/16/2020, 08/16/2020 Colorectal Cancer Screening 08/16/2030 Zoster Vaccines Completed 10/18/2019, 07/16/2019 Pneumococcal Vaccine: 65+ Years Completed 11/02/2021, 07/16/2019 Influenza Vaccine (FLU shot) Completed , 02/17/2020, 01/17/2019, Additional history exists GARDASIL-HPV IMMUNIZATION SERIES Aged [...] as of this encounter Visit Diagnoses Diagnosis [facility] Other*[id number] documented in this encounter Care Teams Siderographist Relationship Specialty Start Date End Date Bunny Peña MD [address] [place] [address] PCP - General Family Medicine 11/02/18 documented as of this encounter
--- OUTSIDE RECORDS SUMMARY | 2023-04-22 06:54 | External Medical Summary | Summary of Care ---
Author Name Unknown Organization [facility] Address [address] [place] [address] Phone [phone] Care Team Providers Care Home Manager Name Role Phone Bunny Peña MD Primary Care Provider [phone] Reason for Visit * Reason Onset Date Comments pre-op exam EXTRACAPSULAR CA TARACT REMOVAL WITH INTRAOCULAR LENS-- 03/04 & 03/11 Medication Administration 02/21/2023 Flu an d/or Pneumo Inj Encounter Details Date Type Department Care Team Description 02/21/2023 Office Visit Family Practice [facility] [address] [place] [address] B[facility] Calvin CR[facility] [address] [facility] [address] Pre-op evaluation*; Need for prophylactic vaccination and inoculation against influenza; DM type 2 nursing care encounter ([facility]); HERBERT (obstructive sleep apnea); Acquired hypothyroidism; HTN, goal below 130/80; Type 2 diabetes mellitus without complication, without long-term current use of insulin ([facility]); Dyslipidemia; Gastroesophageal reflux disease, unspecified whether esophagitis present Allergies Active Allergy Reactions Severity Noted Date Comments Pollen 11/02/2018 Seasonal allergies Levofloxacin In D5w Rash High 11/02/2018 Pantoprazole 01/30/2021 Leg cramps documented as of this encounter (statuses as of 02/21/2023) Medications Medication Sig Dispensed Refills Start Date End Date Status Fluticasone Propionate 50 MCG/ACT Nasal Suspension Administer 1 [place] into nostril in the morning. 0 Active [...] before bedtime. 0 01/31/2023 Active Polymyxin B-Trimethoprim 01799-9.1 UNIT/ML-% Ophthalmic Solution (Polytrim) Instill 1 Drop [...] Patient Instructions * Patient Instructions* Ginny Murdock, IMCU SPECIALIST - 02/21/2023 10:12 AM EDT Diabetes: Keeping [...] calluses yourself. Talk to your doctor or renewals specialist (a doctor who specializes in foot care) [...] the area doesnt appear to be healing. [id number] [employer], [address] [place] [address], [place] [address]. All rights reserved. This information is not intended as a substitute for professional medical care. Always follow your healthcare professional's instructions. documented in this encounter Progress Notes * Ginny Murdock LPN - 02/21/2023 10:08 AM EDT PRE - ADMINISTRATION DOCUMENTATION Are you experiencing any cold symptoms or fever? No Have you had Guillain-[place] Syndrome (an illness that causes paralysis) within [...] Pt also has L knee replacement at [facility] with Dr. Pelayo on 04/22/2023. Thought she could use this appt to cover that. We have not received these in office. documented in this encounter Plan of Treatment Upcoming Encounters Date Type Specialty Care Team Description 03/04/2023 Hospital Encounter Surgery Norberto Clarke MD [address] [address] 03/04/2023 Surgery Surgery Norberto Clarke MD [address] [address] LEFT EXTRACAPSULAR CATARACT REMOVAL WITH INTRAOCULAR LENS 03/11/2023 Hospital Encounter Surgery Norberto Clarke MD [address] [address] 03/11/2023 Surgery Surgery Norberto Clarke MD [address] [address] RIGHT EXTRACAPSULAR CATARACT REMOVAL WITH INTRAOCULAR LENS 04/16/2023 Office Visit Family Medicine Bunny Peña MD [address] [place] [address] 09/30/2023 Imaging Radiology 11/20/2023 Office Visit Dermatology Marian Gardner PA-C [address] [place] [address] [place] [address] Scheduled Orders Name Type Priority Associated Diagnoses [...] cataract documented in this encounter Care Teams Home Manager Relationship Specialty Start Date End Date Bunny Peña MD [address] [place] [address] PCP - General Family Medicine 11/02/18 documented as of this encounter
[2023-04-22] MEDS ORDERED: KETAMINE HCL 10MG/ML SYR ONE (07:14)
[2023-04-22] MEDS ORDERED: LIDOCAINE 2% 2 ML VIAL/AMP(20MG/ML) INFIL ONE (07:15)
[2023-04-22] MEDS ORDERED: PROPOFOL IV EMULSION 10 MG/ML 20 ML VIAL IV ONE ×2 (07:15→09:17)
[2023-04-22] MEDS ORDERED: ONDANSETRON INJ 2 MG/ML 2 ML VIAL ONE (07:15)
[2023-04-22] MEDS ORDERED: ORTHO JOINT ANESTHETIC ONE (07:36)
--- NOTE | 2023-04-22 09:53 | Post Operative Brief Note ---
Immediate Post Op Note v1 Date of Surgery April 22, 2023 Pre & Post Diagnosis Operation Date: 04/22/23 07:00 Pre-Op Diagnosis: Osteoarthritis Knee Left Post-Op Diagnosis: Osteoarthritis Knee Left I identified the patient and participated in the time-out.: Yes Procedure Operation Date: 04/22/23 07:00 Actual Procedures p Left Total Knee Arthroplasty(Left) - Ed Pelayo MD Surgeon Ed Pelayo MD Certified Scrum Master Kaycee Dewitt PA-C (No fellow avail) Estimated Blood Loss 120 Findings Consistent with Post-Op Diagnosis Fluids 1500 cc Specimens Left knee Contents Anesthesia Type MAC Spinal Regional Complications none
--- NOTE | 2023-04-22 09:54 | Operative Report ---
Post Operative Report Pre & Post Diagnosis Operation Date: 04/22/23 07:00 Pre-Op Diagnosis: Osteoarthritis Knee Left Post-Op Diagnosis: Osteoarthritis Knee Left I identified the patient and participated in the time-out.: Yes Procedure Operation Date: 04/22/23 07:00 Actual Procedures p Left Total knee replacement, imageless computer assisted navigation (Left) - Ed Pelayo MD Surgeon Ed Pelayo MD Coat Feller Kaycee Dewitt PA-C (No fellow avail) Estimated Blood Loss 120 Findings See Below Examined Under Anesthesia: ROM -- There was 5 degrees to 125 degrees of flexion Ligamentous examination -- revealed stable Yesenia, posterior drawer, varus and valgus stress at 5 and 30 degrees. [place] Grade IV changes of all 3 compartments. Scar tissue in suprapatellar pouch, around patella, and anterior fat pad. Fluids 1500 cc Specimens Left knee Contents Anesthesia Type MAC Spinal Regional Complications none Indications This is a 67-year-old female who has clinical and radiographic findings consistent with osteoarthritis of the a left knee. I recommended that a left total knee replacement be performed. The patient understands the risks of surgery, which include but not limited to: bleeding, infection, re-operation, damage to nerves and arteries, continued knee pain, knee stiffness, DVT, and . The patient understands all of these instructions and explanations, all of his questions have been satisfactorily addressed and the patient has elected to proceed. Informed consent was signed. Description of Procedure IMPLANTS: 1. Femur: Triathlon #5 Left PS. 2. Tibia: Triathlon #4 [place]. 3. Insert: Triathlon #4 x 13 mm PS X3 poly. 4. Patella: Triathlon A35 x 10 mm X3 poly. 5. [place] cement. Kaycee Dewitt PA-C is assisting with positioning, retracting, and closure due to fellow not available. Procedure: The patient was taken to the Operating Room and placed in the supine position after spinal and adductor canal nerve block was administered. My initials and a multidisciplinary time-out were used to identify the left leg as the correct operative limb. A tourniquet was placed high in the thigh. Prior to the incision, 2 grams of intravenous Ancef were given. The left leg was then prepped and draped in a standard sterile fashion. An Esmarch was used to exsanguinate the leg and the tourniquet was inflated to 250 mmHg. The planned mid-line 20 cm incision was created exposing the extensor mechanism. The medial parapatellar arthrotomy was made and the patella was everted. The patella was addressed first. It was prepared by reaming from 21 mm down to 11 mm. An A35 button was found to fit best. The peg holes were made in the standard fashion. The femur was addressed next and using computer assisted OrthoAlign with 3 degrees of flexion and 0 degrees of valgus, removing 10 mm in the standard fashion for the distal cut. The cut was made and the 4-in-1 cutting block for a size 5 femur was placed. These cuts and the cuts to place the box were made in the standard fashion. Our attention was then drawn to the tibia cut with using imageless computer assisted OrthoAlign, taking 2 mm from the lateral low side. There was sufficient extension and flexion gap to fit a 13 mm spacer after using cutting guide to remove 1.27 mm off medial side. A #4 Tibial baseplate fit well. A trial with a 13 mm spacer showed excellent stability in both flexion and extension, with good ligament balance, and thumbs free patellar tracking. Range of motion of 0-130 degrees. The tibial baseplate was prepped for the keel and stem. All components were removed. 90 ml of total knee cocktail were injected into the soft tissues and periosteum. All surfaces were copiously irrigated prior to placement of the components. The femoral component followed by Tibial baseplate were cemented in place and a 13mm trial placed. Next, the patellar button was placed using the same cement. Once the cement had cured, the range of motion and stability were unchanged. The 13 mm X3 poly was placed. Again, the range of motion and stability were unchanged. The tourniquet was deflated. Hemostasis was obtained. The extensor mechanism was closed with 1-0 Vicryl and 0 Stratafix with the knee bent approximately 60 degrees in a standard fashion. The peritenon and deep fascia was closed with 2-0 Vicryl. The subcutaneous layer was closed with 3-0 Vicryl. The skin was closed with Zipline and shield. The limb was cleaned and dried. 4x4 dressing was placed over top followed by ABDs, sterile Webril, and a foot to thigh Dudley bandage. The patient was then transferred to the Recovery Room in stable condition. The sponge and needle counts were correct. POST-OP INSTRUCTIONS: The patient will be WBAT. The patient will be admitted to the hospital. Complete 24-hour course antibiotics. Labs will be obtained during the stay. DVT prophylaxis will included aspirin for 6 weeks, TEDs, and mechanical foot pumps. The dressing will be changed postop day #2-3 and covered with a Silverlon dressing. I attest to the content of the Intraoperative Record and any orders documented therein. Any exceptions are noted below.
--- NOTE | 2023-04-22 10:00 | Operative Report ---
Post Operative Report Pre & Post Diagnosis Operation Date: 04/22/23 07:00 Pre-Op Diagnosis: Osteoarthritis Knee Left Post-Op Diagnosis: Osteoarthritis Knee Left I identified the patient and participated in the time-out.: Yes Procedure Operation Date: 04/22/23 07:00 Actual Procedures p Left Total Knee Arthroplasty(Left) - Ed Pelayo MD Surgeon Ed Pelayo Manager Marketing Communications Kaycee Dewitt PA-C (No fellow avail) Estimated Blood Loss 120 Findings Consistent with Post-Op Diagnosis Specimens bone femur and tibia Complications none Disposition Accompanied Patient To Recovery: No Description of Procedure I was present during the entire case. I assisted with transferring patient, positioning, draping, retracting, hemostasis, wound closure, dressing application and transferring to liter. Patient left the OR in stable condition. Please refer to Dr. Pelayo's operative report for complete details. I attest to the content of the Intraoperative Record and any orders documented therein. Any exceptions are noted below.
--- NOTE | 2023-04-22 10:29 | Anesthesiology Progress Note ---
Date of Service April 22, 2023 Anesthesia Post Procedure Vital Signs Vital Signs: Temp Pulse Pulse Resp BP Pulse Ox O2 Del Method 04/22/23 10:20 66 13 106/71 97 Nasal Cannula 04/22/23 10:10 67 13 105/74 97 Nasal Cannula 04/22/23 10:00 36.3 C L 71 14 96/70 L 96 Nasal Cannula 04/22/23 05:40 36.6 C 88 20 155/93 H 94 Room Air O2 Flow Rate 04/22/23 10:20 2 04/22/23 10:10 2 04/22/23 10:00 2 04/22/23 05:40 Transfer of Care Handoff Completed per policy Notes Mental Status: alert / awake / arousable and participated in evaluation Patient Amnestic to Procedure: Yes Nausea / Vomiting: adequately controlled Pain: adequately controlled Airway Patency, RR, SpO2: stable & adequate BP & HR: stable & adequate Hydration State: stable & adequate Anesthetic Complications: no major complications apparent and Pt Satisfied with anesthetic care
--- NOTE | 2023-04-22 10:53 | XRay Report ---
LEFT KNEE 2 VIEWS History: Left total knee arthroplasty. Degenerative arthritis. Postop. FINDINGS: The patient is status post a left total knee arthroplasty. The hardware is intact. No fract ure or dislocation. IMPRESSION: Left total knee arthroplasty. No evidence for hardware complication. ACT 112: Negative or not required by law. Electronically signed by: Duy Desai M.D. 04/22/2023 10:52 AM
[2023-04-22] MEDS ORDERED: HYDROmorphone INJ 1 MG/ML SYRINGE IV PRN (11:02)
[2023-04-22] MEDS ORDERED: METOCLOPRAMIDE HCL INJ 5 MG/ML 2 ML VIAL IV PRN (11:02)
[2023-04-22] MEDS ORDERED: bisacodyL 10 MG SUPP PR PRN (11:02)
[2023-04-22] MEDS ORDERED: MAGNESIUM HYDROXIDE SUSP 30 ML UDC PO PRN (11:02)
[2023-04-22] MEDS ORDERED: SODIUM CHLORIDE 0.9% 1,000 ML IV SCH (11:02)
[2023-04-22] MEDS ORDERED: diphenhydrAMINE Capsule 25 MG CAP PO PRN (11:02)
[2023-04-22] MEDS ORDERED: NALOXONE HCL 0.4 MG/1 ML VIAL/CARP IV PRN (11:02)
--- NOTE | 2023-04-22 11:50 | Consultation ---
Date of Consultation April 22, 2023 Assessment & Plan (1) S/P total knee arthroplasty: (2) Diabetes mellitus, type 2: (3) Sleep apnea: (4) Hyperlipidemia: (5) Hypertension: Plan This is a 67-year-old male who has a significant past medical history of controlled T2DM, HTN, HLD, hypothyroidism, HERBERT, GERD, obesity and fibromyalgia who presented for elective left knee arthroplasty. S/P L TKA by Dr. Pelayo EBL: 120ml Pain/wound management per orthopedics Activity and therapy as per orthopedics Encourage incentive spirometer Monitor postop hemoglobin, preop hemoglobin was 14.9. T2DM chronic, stable a1c 7.1 hold jardiance and glipizide novolog/lantus per protocol HTN chronic, stable hold amlodipine, losartan for now, BP on lower side resume as able HLD chronic, stable on coq10 not on statin therapy most recent chol 304 10/2021 HERBERT cpap at HS Obesity, BMI 38.5 diet/lifestyle modifications DVT ppx:ASA bid per ortho Dispo: per primary PCP: Casey FULL CODE Thank you for this consultation. We will follow the patient with you during their hospital stay. You can reach a member of the [facility] Hospitalist Team 25/11 via hospitalist role on tiger text. Pt was seen and examined in collaboration with Dr. Villa, please see addendum Supervising Physician Co-Signing Physician Notes Pt was seen and examined. Agreed with Vikki LYNN exam, assessment and plan. No postop complication. Continue Incentive spirometry. Pain control as per ortho. PT/OT eval. Continue monitor H/H. Fall precaution. MD Allen History of Present Illness Requesting Physician: Dr. Pelayo Reason for Consultation: Postop med management Attending Physician: Ed Pelayo MD History of Present Illness This is a 67-year-old male who has a significant past medical history of controlled T2DM, HTN, HLD, hypothyroidism, HERBERT, GERD, obesity and fibromyalgia who presented for elective left knee arthroplasty. She follows with Dr. Peña in the outpatient setting. Her outpatient [facility] records were reviewed. Her most recent A1c was 7.1. She is controlled on regimen of Jardiance and glipizide. She also is history of hypertension controlled on regimen of amlodipine and olmesartan. Post operatively she feels well w/o nausea. She is tolerating lunch. She denies f/c/s, chest pain, sob, n/v/d, abd pain. She states she has a cpap at home but hasn't been able to use it b/c of the nose piece. She is interested in trying one in house. Allergies Allergy/AdvReac Type Severity Reaction Status Date / Time [facility] Allergy Mild Rash Verified 04/22/23 05:42 pantoprazole AdvReac Leg cramps Verified 04/22/23 05:42 Home Medications Medication Instructions Recorded Confirmed Type amlodipine 10 mg-olmesartan 20 mg 1 tab PO QAM 01/25/21 04/22/23 History tablet ascorbic acid (vitamin C) 500 mg 500 mg PO BID 01/25/21 04/22/23 History tablet (Vitamin C) calcium citrate 200 mg (950 mg) 200 mg PO HS 01/25/21 04/22/23 History tablet coQ10 (ubiquinol) 100 mg capsule 100 mg PO QAM 01/25/21 04/22/23 History cyanocobalamin (vitamin B-12) 1,000 mcg PO HS 01/25/21 04/22/23 History 1,000 mcg capsule fenofibrate nanocrystallized 145 145 mg PO QAM 01/25/21 04/22/23 History mg tablet glipizide 5 mg tablet 5 mg PO BID 01/25/21 04/22/23 History glucosamine-chondroitin 250 mg-200 1 tab PO BID 01/25/21 04/22/23 History mg tablet (Osteo Bi-Flex) levothyroxine 150 mcg tablet 150 mcg PO QAM 01/25/21 04/22/23 History (Synthroid) montelukast 10 mg tablet 10 mg PO HS 01/25/21 04/22/23 History cholecalciferol (vitamin D3) 125 125 mcg PO BID 02/26/23 04/22/23 History mcg (5,000 unit) tablet empagliflozin 25 mg tablet 25 mg PO QAM 02/26/23 04/22/23 History (Jardiance) fluticasone propionate 50 2 spray intranasal DAILY PRN 02/26/23 04/22/23 History mcg/actuation nasal Congestion spray,suspension rabeprazole 20 mg tablet,delayed 20 mg PO QAM 02/26/23 04/22/23 History release krill 350 mg-omega-3 90 mg-dha 24 1 cap PO QAM 02/27/23 04/22/23 History mg-epa 50 [id number] capsule (MegaRed [place]-3 Krill Oil) magnesium 250 mg tablet 250 mg PO HS 02/27/23 04/22/23 History pyridoxine (vitamin B6) 100 mg 100 mg PO HS 02/27/23 04/22/23 History tablet zinc acetate 50 mg (zinc) capsule 50 mg PO HS 02/27/23 04/22/23 History biotin 1 tab PO QAM 03/20/23 04/22/23 History ketorolac 0.5 % eye drops 1 drp OPL BID 04/22/23 04/22/23 History prednisolone acetate 1 % eye 1 drp OPL QID 04/22/23 04/22/23 History drops,suspension tramadol 50 mg tablet 100 mg (2 x 50 mg) PO Q6H PRN pain 04/24/23 Rx #24 tabs Patient History Medical History (Updated 04/22/23 @ 16:11 by Ed Pelayo MD) Arthritis of knee, left History of recent hospitalization 02/26/23, dx w/shigella>no current issues Sleep apnea dx and working w/PCP to get a cpap currently Hx of Lyme disease 2012 s/p treatment- no residual issues Osteoarthritis Fatty liver Mild LFT elevation - stable GERD (gastroesophageal reflux disease) Controlled Diabetes mellitus, type 2 NIDDM Glucose stable Hypothyroidism Temporomandibular joint disorder Mouth guard HS-since wearing guard doesn't get any clicking or locking Anxiety Hypertension Hyperlipidemia Surgical History (Updated 04/22/23 @ 11:43 by Vikki Roe PA-C) Hx of left cataract extraction rt eye to be done 04/08/23 History of endometrial ablation History of dilatation and curettage History of esophagogastroduodenoscopy (EGD) H/O lumpectomy Left (benign) History of arthroscopy Left knee and right knee History of colonoscopy History of section x3 [place] teeth removed History of tonsillectomy Family History Father Family history of diabetes mellitus Sister Family history of diabetes mellitus Other No family history of adverse response to anesthesia Social History Smoking Status: Never smoker Second Hand Exposure: Yes (hx growing up); Do You Dip or Chew Tobacco: No; Tobacco Cessation Education Requested by Patient: No Hx Alcohol Use: No Hx Substance Use: No Preferred Language: British Communication Ability: Effective Organ Tuner Electronic Required: No Beliefs That Will Affect Care: None Current Living Situation: Alone Other Information That Helps Us Care for You: No Feels Safe at Home: Yes Safety Concerns: Feels Safe At This Time Assistive Devices: Walker Review of Systems Review of Systems: All systems reviewed & are unremarkable except as noted in HPI & below Physical Exam Physical Exam: Constitutional: WD/WN, vitals as above, NAD, sitting up in bed, pleasant, conversing easily Head: Normocephalic, Atraumatic Eyes: PERRL, conjunctivae normal, anicteric sclerae ENMT: external ear and nose normal, oropharynx normal Neck: trachea midline, no thyromegaly normal visual inspection Respiratory: normal respiratory effort, lungs clear to auscultation, no wheeze, rales, rhonchi. Normal insp/exp effort, no accessory muscle use Cardiovascular: RRR, no murmur, no edema Vessels: no JVD or carotid bruit Chest: normal inspection of chest Abdomen: normal bowel sounds, soft, nontender, no hepatosplenomegaly Musculoskeletal: no cyanosis or clubbing, L knee dressing CDI, nvi distally Skin: no rashes, warm and dry normal turgor Neurologic: PERRL, EOMI, accommodation nl, no face palsy, no dysarthria CN's II-XI intact bilaterally and moves all extremities Psychiatric: A+Ox3, euthymic affect : deferred Results & Data Vital Signs (Past 12 Hours) Vital Signs Temp Pulse Pulse Resp BP Pulse Ox O2 Del Method 04/22/23 11:31 36.4 C L 67 14 112/72 100 Nasal Cannula 04/22/23 11:00 Nasal Cannula 04/22/23 11:00 36.4 C L 66 16 106/71 99 Room Air 04/22/23 10:50 36.4 C L 64 14 108/78 98 Nasal Cannula 04/22/23 10:40 71 17 103/77 98 Nasal Cannula 04/22/23 10:30 65 15 111/68 98 Nasal Cannula 04/22/23 10:20 66 13 106/71 97 Nasal Cannula 04/22/23 10:10 67 13 105/74 97 Nasal Cannula 04/22/23 10:00 36.3 C L 71 14 96/70 L 96 Nasal Cannula 04/22/23 05:40 36.6 C 88 20 155/93 H 94 Room Air O2 Flow Rate 04/22/23 11:31 2 04/22/23 11:00 2 04/22/23 11:00 2 04/22/23 10:50 2 04/22/23 10:40 2 04/22/23 10:30 2 04/22/23 10:20 2 04/22/23 10:10 2 04/22/23 10:00 2 04/22/23 05:40 Laboratory Results Pre op lab tests reviewed. I have independently reviewed and interpreted patient's labs including CBC, BMP, A1C, LFTS - reviewed in [facility] from 03/28/23. Diagnostic Findings Knee X-Ray 04/22/23 10:10 LEFT KNEE 2 VIEWS History: Left total knee arthroplasty. Degenerative arthritis. Postop. FINDINGS: The patient is status post a left total knee arthroplasty. The hardware is intact. No fracture or dislocation. IMPRESSION: Left total knee arthroplasty. No evidence for hardware complication. ACT 112: Negative or not required by law. Electronically signed by: Duy Desai M.D. 04/22/2023 10:52 AM Medications Administered Current Inpatient Medications Acetaminophen (Acetaminophen 500 Mg Tab) 1,000 mg PO Q8H STEVAN Stop: 05/22/23 13:59 Ascorbic Acid (Ascorbic Acid 500 Mg Tab) 500 mg PO BID [facility]EVAN Stop: 05/22/23 20:59 Aspirin (Aspirin 81 Mg Ectab) 81 mg PO BID [facility] Stop: 05/22/23 20:59 Bisacodyl (Bisacodyl 10 Mg Supp) 10 mg ID DAILY PRN PRN Reason: Constipation Stop: 05/22/23 11:01 Calcium Citrate (Calcium Citrate 950 Mg Tab) 950 mg PO HS STEVAN Stop: 05/22/23 20:59 Cyanocobalamin (Cyanocobalamin (B-12) 500 Mcg Tablet) 1,000 mcg PO HS STEVAN Stop: 05/22/23 20:59 Diphenhydramine HCl (Diphenhydramine Capsule 25 Mg Cap) 25 mg PO Q8H PRN PRN Reason: Itching Stop: 05/22/23 11:01 Docusate Sodium (Docusate Sodium 100 Mg Cap) 100 mg PO BID [facility] Stop: 05/22/23 20:59 Empagliflozin (Empagliflozin 25 Mg Tab) 25 mg PO QAM [facility] Stop: 05/23/23 08:59 Fenofibrate (Fenofibrate Nanocrystallized 145 Mg Tablet) 145 mg PO QAM [facility] Stop: 05/23/23 08:59 Glipizide (Glipizide 5 Mg Tab) 5 mg PO BID@0730,1630 [facility] Stop: 05/22/23 16:29 Hydromorphone HCl (Hydromorphone Inj 1 Mg/Ml Syringe) 1 mg IV Q4H PRN PRN Reason: Pain Stop: 05/06/23 11:01 Sodium Chloride (Nss) 1,000 mls @ 100 mls/hr IV .Q10H [facility] Stop: 04/23/23 06:00 Cefazolin Sodium (Ancef 2000mg) 2,000 mg in 15 mls @ 3.75 mls/min IV Q8H [facility]; Protocol Stop: 04/23/23 00:18 Levothyroxine Sodium (Levothyroxine Sodium 150 Mcg Tablet) 150 mcg PO DAILYBB [facility] Stop: 05/23/23 06:29 Magnesium Hydroxide (Magnesium Hydroxide Susp 30 Ml Udc) 30 ml PO Q6H PRN PRN Reason: Constipation Stop: 05/22/23 11:01 Magnesium Oxide (Magnesium Oxide 400 Mg Tab) 400 mg PO HS [facility] Stop: 05/22/23 20:59 Metoclopramide HCl (Metoclopramide Hcl Inj 5 Mg/Ml 2 Ml Vial) 10 mg IV Q6H PRN PRN Reason: Nausea And Vomiting Stop: 05/22/23 11:01 Miscellaneous (Scopolamine Check Patch Placement) 1 each N/A QS [facility] Stop: 04/25/23 07:59 Miscellaneous (Scopolamine Remove Transderm Patch) 1 each N/A ONE ONE Stop: 04/25/23 08:01 Montelukast Sodium (Montelukast Sodium 10 Mg Tablet) 10 mg PO HS [facility] Stop: 05/22/23 20:59 Multivitamins (Multivitamin Tab) 1 tab PO QAM [facility] Stop: 05/23/23 08:59 Naloxone HCl (Naloxone Hcl 0.4 Mg/1 Ml Vial/Carp) 0.1 mg IV Q5M PRN PRN Reason: Oversedation/Resp Depression Stop: 05/22/23 11:01 Non-Formulary Medication (Amlodipine-[facility]mes[facility]) [facility] Stop: 05/23/23 08:59 Non-Formulary Medication (Rabeprazole) 20 mg PO QAM [facility] Stop: 05/23/23 08:59 Ondansetron HCl (Ondansetron Inj 2 Mg/Ml 2 Ml Vial) 4 mg IV Q6H PRN PRN Reason: Nausea And Vomiting Stop: 05/22/23 11:01 Oxycodone HCl (Oxycodone Hcl Ir 5 Mg Tab (Immediate Release)) 5 - 10 mg PO Q4H PRN PRN Reason: Pain or Pre PT Stop: 05/06/23 11:01 Pyridoxine HCl (Pyridoxine Hcl 50 Mg Tab) 100 mg PO [facility] Stop: 05/22/23 20:59 Sennosides (Senna 8.6 Mg Tab) 17.2 mg PO HS [facility] Stop: 05/22/23 20:59 Tramadol HCl (Tramadol Hcl 50 Mg Tablet) 50 - 100 mg PO Q4H PRN PRN Reason: Pain & Pre PT Stop: 05/22/23 11:01 Vitamin D (Cholecalciferol 5,000 Units 125 Mcg Tab) 5,000 units PO BID [facility] Stop: 05/22/23 20:59 ECG Rate (beats per minute): 93 Rhythm: normal sinus Additional Comments: I have independently reviewed and interpreted patient's admitting EKG which revealed: 93 bpm, no st or t wave changes, qtc 445ms (1) S/P total knee arthroplasty Laterality: left Qualified Code(s): Z96.652 - Presence of left artificial knee joint (2) Diabetes mellitus, type 2 Diabetes mellitus complication status: without complication Diabetes mellitus superintendent marine oil terminal insulin use: without fpc use Qualified Code(s): E11.9 - Type 2 diabetes mellitus without complications (4) Hyperlipidemia Hyperlipidemia type: mixed hyperlipidemia Qualified Code(s): E78.2 - Mixed hyperlipidemia
[2023-04-22] MEDS ORDERED: GLUCOSE 10 TAB/TUBE PO PRN (12:04)
[2023-04-22] MEDS ORDERED: GLUCAGON FOR INJ 1 MG VIAL SQ PRN (12:04)
[2023-04-22] MEDS ORDERED: DEXTROSE 50% 50 ML SYRINGE IV PRN (12:04)
[2023-04-22] MEDS ORDERED: GLUCOSE 40% GEL 15 GM TUBE PO PRN (12:04)
[2023-04-22] MEDS ORDERED: CARBOHYDRATES FOR HYPOGLYCEMIA PO PRN (12:04)
[2023-04-22] MEDS: ACETAMINOPHEN 500 MG TAB PO SCH ×2 (13:14→21:04)
[2023-04-22] MEDS: prednisoLONE acetate 1% OP SUSP 5 ML BTL OPL SCH ×3 (13:15→21:05)
--- NOTE | 2023-04-22 16:11 | Orthopedic Progress Note ---
Date of Service April 22, 2023 Assessment & Plan (1) Arthritis of knee, left: Plan: POD #0 s/p L TKA, doing as well as expected. Resume diet. WBAT with walker. OOB to chair. Continue pain control. Check labs tomorrow. DVT prophylaxis: TEDs 3 weeks, foot pumps while in hospital, ASA 81 mg BID for 6 weeks. PT/OT. Appreciate medicine input D/C planning. Present on Admission?: Yes Admission and Anticipated Discharge Date Admission Date: April 22, 2023 Subjective Left knee is aching. Was able to get up and go to the bathroom. Physical Exam Physical Exam: LLE: BCR < 2 sec. Sensation to light touch intact distally. Wiggling ankle and toes. Calf soft and non-tender. Dressing is clean, dry, intact. Able to preform a straight leg raise. Results & Data Vital Signs (Past 12 Hours) Vital Signs Temp Pulse Pulse Resp BP Pulse Ox O2 Del Method 04/22/23 15:32 36.5 C 73 16 117/73 96 Room Air 04/22/23 14:07 36.4 C L 76 18 121/65 95 Room Air 04/22/23 13:00 36.4 C L 81 118/74 98 Room Air 04/22/23 12:00 36.5 C 82 16 113/73 99 Nasal Cannula 04/22/23 11:31 36.4 C L 67 14 112/72 100 Nasal Cannula 04/22/23 11:00 Nasal Cannula 04/22/23 11:00 36.4 C L 66 16 106/71 99 Room Air 04/22/23 10:50 36.4 C L 64 14 108/78 98 Nasal Cannula 04/22/23 10:40 71 17 103/77 98 Nasal Cannula 04/22/23 10:30 65 15 111/68 98 Nasal Cannula 04/22/23 10:20 66 13 106/71 97 Nasal Cannula 04/22/23 10:10 67 13 105/74 97 Nasal Cannula 04/22/23 10:00 36.3 C L 71 14 96/70 L 96 Nasal Cannula 04/22/23 05:40 36.6 C 88 20 155/93 H 94 Room Air O2 Flow Rate 04/22/23 15:32 04/22/23 14:07 04/22/23 13:00 04/22/23 12:00 2 04/22/23 11:31 2 04/22/23 11:00 2 04/22/23 11:00 2 04/22/23 10:50 2 04/22/23 10:40 2 04/22/23 10:30 2 04/22/23 10:20 2 04/22/23 10:10 2 04/22/23 10:00 2 04/22/23 05:40 Laboratory Results Laboratory Results POC Glucose 118 mg/dl (70-99) H 04/22/23 11:24 Impressions Knee X-Ray 04/22/23 10:10 LEFT KNEE 2 VIEWS History: Left total knee arthroplasty. Degenerative arthritis. Postop. FINDINGS: The patient is status post a left total knee arthroplasty. The hardware is intact. No fracture or dislocation. IMPRESSION: Left total knee arthroplasty. No evidence for hardware complication. ACT 112: Negative or not required by law. Electronically signed by: Duy Desai M.D. 04/22/2023 10:52 AM
[2023-04-22] MEDS ORDERED: glipiZIDE 5 MG TAB PO SCH (16:30)
[2023-04-22] MEDS: INSULIN ASPART PER UNIT CHARGE SC SCH ×2 (16:49→21:04)
[2023-04-22] MEDS: Scopolamine CHECK PATCH PLACEMENT SCH ×2 (17:20→23:36)
[2023-04-22] MEDS: ceFAZolin 2000MG 2,000 MG/15 ML SYR IV SCH ×2 (17:20→23:36)
[2023-04-22] MEDS: oxyCODONE HCL IR 5 MG TAB (IMMEDIATE RELEASE) PO PRN (18:32)
[2023-04-22] MEDS ORDERED: NON-FORMULARY MEDICATION (Zinc Acetate 50 mg (zinc) Capsule) PO SCH (21:00)
[2023-04-22] MEDS: DOCUSATE SODIUM 100 MG CAP PO SCH (21:03)
[2023-04-22] MEDS: CHOLECALCIFEROL 5,000 UNITS 125 MCG TAB PO SCH (21:03)
[2023-04-22] MEDS: CALCIUM CITRATE 950 MG TAB PO SCH (21:03)
[2023-04-22] MEDS: MAGNESIUM OXIDE 400 MG TAB PO SCH (21:03)
[2023-04-22] MEDS: ASPIRIN 81 MG ECTAB PO SCH (21:03)
[2023-04-22] MEDS: ASCORBIC ACID 500 MG TAB PO SCH (21:03)
[2023-04-22] MEDS: CYANOCOBALAMIN (B-12) 500 MCG TABLET PO SCH (21:04)
[2023-04-22] MEDS: MONTELUKAST SODIUM 10 MG TABLET PO SCH (21:04)
[2023-04-22] MEDS: PYRIDOXINE HCL 50 MG TAB PO SCH (21:04)
[2023-04-22] MEDS: KETOROLAC 0.5% OP SOLN 5 ML BTL OPL SCH (21:05)
[2023-04-22] MEDS: LANTUS PER UNIT CHARGE SQ SCH (21:05)
[2023-04-22] MEDS: SENNA 8.6 MG TAB PO SCH (21:06)
[2023-04-23] MEDS: oxyCODONE HCL IR 5 MG TAB (IMMEDIATE RELEASE) PO PRN ×4 (03:02→19:43)
[2023-04-23] MEDS: ACETAMINOPHEN 500 MG TAB PO SCH ×3 (05:39→21:08)
[2023-04-23] MEDS: LEVOTHYROXINE SODIUM 150 MCG TABLET PO SCH (05:39)
[2023-04-23 06:32] LABS: Hematocrit (blood only) 35.4 % (37.0-47.0); Hemoglobin 11.3 g/dl (12.0-16.0); Mean Corpuscular Hemoglobin 29.6 pg (25.0-34.0); Mean Corpuscular Hgb Conc 31.9 g/dL (32.0-36.0); Mean Corpuscular Volume 92.7 fL (80.0-100.0); Mean Platelet Volume 10.2 fL (9.4-12.4); Platelet Count 370 K/uL (130-400); RDW Coefficient of Variation 12.7 % (11.5-14.5); RDW Standard Deviation 43.3 fL (36.4-46.3); Red Blood Count 3.82 M/uL (4.20-5.40); White Blood Count 11.41 K/ul (4.8-10.8)
[2023-04-23 06:59] LABS: BUN Creatinine Ratio 26.2 (10-20); Calcium 8.6 mg/dl (8.6-10.3); Creatinine Clr Calc Pharmacy 116.8 ml/min; Est GFR (African American) 109.5 ml/min; Est GFR (Non-African American) 94.5 ml/min
--- NOTE | 2023-04-23 07:38 | Orthopedic Progress Note ---
Date of Service April 23, 2023 Assessment & Plan (1) Arthritis of knee, left: Plan: POD #1 s/p L TKA, doing as well as expected. Resume diet. WBAT with walker. OOB to chair. Continue pain control. DVT prophylaxis: TEDs 3 weeks, foot pumps while in hospital, ASA 81 mg BID for 6 weeks. PT/OT. Appreciate medicine input D/C planning. D/C home pending pain controlled with oral pain medicine, passes PT/OT. Admission and Anticipated Discharge Date Admission Date: April 22, 2023 Subjective Tough night, had severe left knee pain going from bed to the bathroom. Physical Exam Physical Exam: LLE: BCR < 2 sec. Sensation to light touch intact distally. Wiggling ankle and toes. Calf soft and non-tender. Dressing is clean, dry, intact. Able to preform a straight leg raise. Results & Data Vital Signs (Past 12 Hours) Vital Signs Temp Pulse Pulse Pulse Resp BP Pulse Ox 04/23/23 07:09 36.9 C 94 H 16 136/75 93 04/23/23 02:51 36.8 C 88 18 131/80 96 04/23/23 02:15 88 21 96 04/22/23 23:44 82 17 93 04/22/23 23:34 36.5 C 85 16 121/77 95 04/22/23 20:30 O2 Del Method 04/23/23 07:09 Room Air 04/23/23 02:51 Room Air 04/23/23 02:15 04/22/23 23:44 04/22/23 23:34 Room Air 04/22/23 20:30 Room Air, CPAP Laboratory Results 04/23/23 04/23/23 04/22/23 Range/Units 07:31 06:09 20:42 WBC 11.41 H (4.8-10.8) K/ul RBC 3.82 L (4.20-5.40) M/uL Hgb 11.3 L (12.0-16.0) g/dl Hct 35.4 L (37.0-47.0) % MCV 92.7 (80.0-100.0) fL MCH 29.6 (25.0-34.0) pg MCHC 31.9 L (32.0-36.0) g/dL RDW Std Deviation 43.3 (36.4-46.3) fL RDW Coeff of Nimesh 12.7 (11.5-14.5) % Plt Count 370 (130-400) K/uL MPV 10.2 (9.4-12.4) fL Sodium 135 L (136-145) mmol/L Potassium 4.0 (3.5-5.1) mmol/L Chloride 103 (98-107) mmol/L Carbon Dioxide 27 (21-32) mmol/L Anion Gap 5 (3-11) BUN 16 (6-23) mg/dl Creatinine 0.61 (0.6-1.2) mg/dl Est Cr Clr Drug Dosing 116.8 ml/min Est GFR ( Amer) 109.5 ml/min Est GFR (Non-Af Amer) 94.5 ml/min BUN/Creatinine Ratio 26.2 H (10-20) Glucose 159 H (70-99(Fasting)) mg/dl POC Glucose 160 H 172 H (70-99) mg/dl Calcium 8.6 (8.6-10.3) mg/dl 04/22/23 04/22/23 04/22/23 Range/Units 16:27 11:24 10:03 WBC (4.8-10.8) K/ul RBC (4.20-5.40) M/uL Hgb (12.0-16.0) g/dl Hct (37.0-47.0) % MCV (80.0-100.0) fL MCH (25.0-34.0) pg MCHC (32.0-36.0) g/dL RDW Std Deviation (36.4-46.3) fL RDW Coeff of Nimesh (11.5-14.5) % Plt Count (130-400) K/uL MPV (9.4-12.4) fL Sodium (136-145) mmol/L Potassium (3.5-5.1) mmol/L Chloride (98-107) mmol/L Carbon Dioxide (21-32) mmol/L Anion Gap (3-11) BUN (6-23) mg/dl Creatinine (0.6-1.2) mg/dl Est Cr Clr Drug Dosing ml/min Est GFR ( Amer) ml/min Est GFR (Non-Af Amer) ml/min BUN/Creatinine Ratio (10-20) Glucose (70-99(Fasting)) mg/dl POC Glucose 114 H 118 H 128 H (70-99) mg/dl Calcium (8.6-10.3) mg/dl
[2023-04-23] MEDS: Scopolamine CHECK PATCH PLACEMENT SCH ×2 (08:17→17:12)
[2023-04-23] MEDS: CHOLECALCIFEROL 5,000 UNITS 125 MCG TAB PO SCH ×2 (08:19→21:08)
[2023-04-23] MEDS: MULTIVITAMIN TAB PO SCH (08:19)
[2023-04-23] MEDS: DOCUSATE SODIUM 100 MG CAP PO SCH ×2 (08:19→21:09)
[2023-04-23] MEDS: ASCORBIC ACID 500 MG TAB PO SCH ×2 (08:19→21:09)
[2023-04-23] MEDS: PANTOprazole 40 MG TAB PO SCH (08:19)
[2023-04-23] MEDS: ASPIRIN 81 MG ECTAB PO SCH ×2 (08:19→21:08)
[2023-04-23] MEDS: prednisoLONE acetate 1% OP SUSP 5 ML BTL OPL SCH ×4 (08:20→21:10)
[2023-04-23] MEDS: KETOROLAC 0.5% OP SOLN 5 ML BTL OPL SCH ×2 (08:20→21:09)
[2023-04-23] MEDS: FENOFIBRATE NANOCRYSTALLIZED 145 MG TABLET PO SCH (08:20)
[2023-04-23] MEDS: INSULIN ASPART PER UNIT CHARGE SC SCH ×4 (08:29→21:10)
[2023-04-23] MEDS ORDERED: KRILL OM DHA EPA PHOSPHO AST PO SCH (09:00)
[2023-04-23] MEDS ORDERED: NON-FORMULARY MEDICATION (Coq10 (Ubiquinol) 100 mg Capsule) PO SCH (09:00)
[2023-04-23] MEDS ORDERED: NON-FORMULARY MEDICATION (Biotin 1 TAB) PO SCH (09:00)
[2023-04-23] MEDS ORDERED: EMPAGLIFLOZIN 25 MG TAB PO SCH (09:00)
[2023-04-23] MEDS ORDERED: amLODIPine BESYLATE 5 MG TAB PO SCH (09:00)
--- NOTE | 2023-04-23 11:49 | Orthopedic Progress Note ---
Date of Service April 23, 2023 Assessment & Plan (1) Arthritis of knee, left: Plan: POD #1 s/p L TKA, doing as well as expected. Resume diet. WBAT with walker. OOB to chair. Continue pain control. DVT prophylaxis: TEDs 3 weeks, foot pumps while in hospital, ASA 81 mg BID for 6 weeks. PT/OT. Appreciate medicine input D/C planning. D/C home plan for tomorrow. She is in too much pain today for discharge. She did do well in PT/OT and will have another session tomorrow prior to discharge. Dr. Pelayo aware and agrees with plan. Admission and Anticipated Discharge Date Admission Date: April 22, 2023 Subjective Patient states she did well in PT, but still having a lot of pain in her knee. She just had dilaudid. She is unsure about going home. Physical Exam Musculoskeletal: Dressings left knee C, D, and intact. Ice in place. Results & Data Vital Signs (Past 12 Hours) Vital Signs Temp Pulse Pulse Pulse Resp BP Pulse Ox 04/23/23 11:16 36.7 C 97 H 16 155/81 H 96 04/23/23 07:09 36.9 C 94 H 16 136/75 93 04/23/23 02:51 36.8 C 88 18 131/80 96 04/23/23 02:15 88 21 96 O2 Del Method 04/23/23 11:16 Room Air 04/23/23 07:09 Room Air 04/23/23 02:51 Room Air 04/23/23 02:15
--- NOTE | 2023-04-23 15:13 | Hospitalist Progress Note ---
Date of Service April 23, 2023 Assessment & Plan (1) S/P total knee arthroplasty: (2) Diabetes mellitus, type 2: (3) Sleep apnea: (4) Hyperlipidemia: (5) Hypertension: Plan Patient is a 67 yr female who has a significant past medical history of controlled T2DM, HTN, HLD, hypothyroidism, HERBERT, GERD, obesity and fibromyalgia who presented for elective left knee arthroplasty. Left knee osteoarthritis S/P L TKA by Dr. Pelayo on 04/22/23 EBL: 120ml Expected postoperative blood loss anemia Pain/wound management per orthopedics Activity and therapy as per orthopedics Fall precautions Encourage incentive spirometer Continue PT OT Bowel regimen to prevent constipation Indication for blood transfusion currently Reactive leukocytosis Needs follow-up with PCP, orthopedics upon discharge DM II chronic, stable HbA1c 7.1 hold jardiance and glipizide Continue Novolog/lantus per protocol HTN chronic, stable Resume amlodipine, losartan Monitor BP HLD chronic, stable on coq10 not on statin therapy most recent chol 304 10/2021 HERBERT continue cpap at HS Obesity, BMI 38.5 diet/lifestyle modifications DVT Px: ASA bid per ortho Code Status FULL CODE Admission and Anticipated Discharge Date Admission Date: April 22, 2023 Subjective Patient is seen and examined at bedside States having left knee pain at surgical site + Flatus, no bowel movement today Denies any chest pain, dyspnea, dizziness, nausea, vomiting, abdominal pain No other complaints Review of Systems Review of Systems: All systems reviewed & are unremarkable except as noted in Subjective Physical Exam Physical Exam: Physical Exam: Vitals signs as noted above General Appearance:Obese, no apparent distress Head: normocephalic, Atraumatic Eyes: normal inspection, EOMI Neck: supple, Trachea midline Respiratory/Chest: Normal breath sounds, CTA, No accessory muscle use Cardiovascular: S1, S2, No murmur Abdomen/GI:Soft, Non tender, Bowel sounds present Extremities/Musculoskeletal:normal inspection, Trace pedal edema, L knee in surgical dressing Neurologic/Psych:AAOX3, grossly no focal neurological deficits Skin: normal color, warm Results & Data Results & Data Vital Signs (Past 12 Hours) Vital Signs Temp Pulse Resp BP Pulse Ox O2 Del Method 04/23/23 11:16 36.7 C 97 H 16 155/81 H 96 Room Air 04/23/23 07:09 36.9 C 94 H 16 136/75 93 Room Air Laboratory Results Short CBC 04/23/23 Range/Units 06:09 WBC 11.41 H (4.8-10.8) K/ul Hgb 11.3 L (12.0-16.0) g/dl Hct 35.4 L (37.0-47.0) % Plt Count 370 (130-400) K/uL BMP 04/23/23 06:09 Sodium 135 L Potassium 4.0 Chloride 103 Carbon Dioxide 27 BUN 16 Creatinine 0.61 Glucose 159 H Calcium 8.6 (1) S/P total knee arthroplasty Laterality: left Qualified Code(s): Z96.652 - Presence of left artificial knee joint (2) Diabetes mellitus, type 2 Diabetes mellitus complication status: without complication Diabetes mellitus supervisor intermediates insulin use: without jail use Qualified Code(s): E11.9 - Type 2 diabetes mellitus without complications (4) Hyperlipidemia Hyperlipidemia type: mixed hyperlipidemia Qualified Code(s): E78.2 - Mixed hyperlipidemia
--- NOTE | 2023-04-23 15:49 | Discharge Summary ---
Date of Service April 23, 2023 Admission HPI Per Admitting Provider Dianne is a 67-year-old female here today for preoperative history and physical for left total knee arthroplasty with Dr. Pelayo. She has had ongoing left knee pain that got worse October 07, 2022 after a fall. She is unable to afford hyaluronic acid injections so she has been getting cortisone injections. Her last cortisone injection was 10/24/2022. The cortisone injections stopped helping her. She reports soreness in her knee mostly over the medial joint line. She is currently taking Tylenol and ibuprofen at nighttime for pain. She is status post right knee arthroscopy, extensive debridement, partial medial and lateral meniscectomies, chondroplasty of the patellofemoral compartment, medial compartment and lateral tibial plateau on February 23, 2021. She denies any history of blood clots, heart attack, stroke. She is not a smoker. She did just recently have shigellosis and was hospitalized on February 26 but she reports that she is fully recovered and is finished her antibiotics and is currently having no symptoms. She denies any changes with her knee since she was last seen. Review of Systems Denies Recent pneumonia, COVID or COVID exposures; Denies Fevers, chills, malaise; Denies Chest pain, heart palpitations; Denies Shortness of breath, cough; Denies Headache or blurry vision; Denies Abdominal pain, nausea, vomiting, diarrhea, or urinary symptoms Diagnostic Results Dr. Pelayo obtained and personally interpreted bilateral knee OA series which included: Hips to ankles, 45 degree flexion PA view, AP standing, lateral, and sunrise views of both knees compared to 2021 which showed progressed left knee medial joint space narrowing greater than right, marginal osteophytes, sclerosis. The left knee with near [id number]. 8 degrees varus alignment on the right and 4 degrees varus alignment on the left. [2] Assessment/Plan 1. Left knee DJD Preop The risks and benefits of surgery as well as the post operative course was explained and discussed with the patient. Written consent obtained. The patient's past medical history, surgeries, social history, medication list, allergies and PDMP were reviewed and confirmed with the patient. Patient obtained medical clearance. Has her PAT appointment today. EKG done 02/24/2022 and showed no concerning findings. He had a hemoglobin A1c done on 02/2423 that was 7.1, TSH done 03/28/2023, CMP done 03/28/2023 that showed elevated glucose slightly elevated LFTs, CBC done 03/28 that showed elevated platelets. Other preoperative orders were placed including type and screen, PTT/INR, urinalysis with reflex to culture and sensitivity and chest x-ray. We discussed postoperative pain medications including oxycodone, tylenol, as well as icing and elevating to control pain. DVT prophylaxis -ASA 81mg BID x 6 weeks and JAVI stockings x 2 weeks. Additional medications - stool softener as needed to prevent constipation while on narcotics, multi-vitamin OR Vitamin C 500mg BID x 2 weeks, Iron 324mg BID x 2 weeks to promote healing. The patient has been scheduled for post operative appointments, including any PT or HH services, per surgeon's preference. She would like to do physical therapy with us. Orders were placed today. She will need walker, raised toilet seat and shower seat. The patient was given a preoperative booklet and we reviewed the most pertinent things leading up to the surgery and the day of surgery; including any assisted devices pt may need, when/who to call for the surgery time, where to arrive the day of surgery, NPO after midnight, medications to hold, prepping the skin with CHG to prevent infection etc. All of their questions and concerns were answered today. They were instructed to call our office if they have any further questions or concerns. Admission Exam (Per Admitting) Constitutional Physical Exam Vitals & Measurements T: 36.5 C HR: 99 (Monitored) RR: 20 BP: 130/62 SpO2: 92% HT: 167.7 cm WT: 108.4 kg WT: 108.400 kg (Dosing) BMI: 38.54 General: Pt is well nourished, seated on the exam table AA&O, in NAD, calm and cooperative during exam HENT: Nontraumatic, no gross deformity, hearing and vision grossly in-tact, PERRL Heart: +S1, +S2, RRR, no murmurs appreciated Lungs: CTABL, no wheezing appreciated Focusing on the patient's left lower extremity: 2+ DP pulse Sensation to light touch is intact Motor to the gastroc soleus, tibialis anterior, and EHL is 5/5. Able to perform straight leg raise. + Medial joint line tenderness left - Rafaeal's Ligamentous examination exhibits: Stable Yesenia 0 mm anterior translation and firm endpoint Posterior drawer stable Varus valgus stress at 0 and 30 stable Valgus stress at 0 and 30 stable Trace Effusion on left Left knee range of motion -5125. + Tenderness to palpation inferior pole of patella, left Palpable romero's cyst, left [1] Specialty Data Specialty Data Laboratory Results WBC 11.41 K/ul (4.8-10.8) H 04/23/23 06:09 RBC 3.82 M/uL (4.20-5.40) L 04/23/23 06:09 Hgb 11.3 g/dl (12.0-16.0) L 04/23/23 06:09 Hct 35.4 % (37.0-47.0) L 04/23/23 06:09 MCV 92.7 fL (80.0-100.0) 04/23/23 06:09 MCH 29.6 pg (25.0-34.0) 04/23/23 06:09 MCHC 31.9 g/dL (32.0-36.0) L 04/23/23 06:09 RDW Std Deviation 43.3 fL (36.4-46.3) 04/23/23 06:09 RDW Coeff of Nimesh 12.7 % (11.5-14.5) 04/23/23 06:09 Plt Count 370 K/uL (130-400) 04/23/23 06:09 MPV 10.2 fL (9.4-12.4) 04/23/23 06:09 Sodium 135 mmol/L (136-145) L 04/23/23 06:09 Potassium 4.0 mmol/L (3.5-5.1) 04/23/23 06:09 Chloride 103 mmol/L (98-107) 04/23/23 06:09 Carbon Dioxide 27 mmol/L (21-32) 04/23/23 06:09 Anion Gap 5 (3-11) 04/23/23 06:09 BUN 16 mg/dl (6-23) 04/23/23 06:09 Creatinine 0.61 mg/dl (0.6-1.2) 04/23/23 06:09 Est Cr Clr Drug Dosing 116.8 ml/min 04/23/23 06:09 Est GFR ( Amer) 109.5 ml/min 04/23/23 06:09 Est GFR (Non-Af Amer) 94.5 ml/min 04/23/23 06:09 BUN/Creatinine Ratio 26.2 (10-20) H 04/23/23 06:09 Glucose 159 mg/dl (70-99(Fasting)) H 04/23/23 06:09 POC Glucose 163 mg/dl (70-99) H 04/23/23 11:31 Calcium 8.6 mg/dl (8.6-10.3) 04/23/23 06:09 04/24/23 04/23/23 04/23/23 Range/Units 07:47 20:37 16:25 POC Glucose 133 H 154 H 140 H (70-99) mg/dl Impressions Knee X-Ray 04/22/23 10:10 LEFT KNEE 2 VIEWS History: Left total knee arthroplasty. Degenerative arthritis. Postop. FINDINGS: The patient is status post a left total knee arthroplasty. The hardware is intact. No fracture or dislocation. IMPRESSION: Left total knee arthroplasty. No evidence for hardware complication. ACT 112: Negative or not required by law. Electronically signed by: Duy Desai M.D. 04/22/2023 10:52 AM Discharge Data Consultations 04/17/23 09:48 Consult Hospitalist Routine Procedures Performed Operation Date: 04/22/23 07:00 Actual Procedures p Left Total Knee Arthroplasty(Left) - Ed Pelayo MD Hospital Course (1) Arthritis of knee, left: POD #1 s/p L TKA, doing as well as expected. Resume diet. WBAT with walker. OOB to chair. Continue pain control. DVT prophylaxis: TEDs 3 weeks, foot pumps while in hospital, ASA 81 mg BID for 6 weeks. PT/OT. Appreciate medicine input D/C planning. D/C home plan for tomorrow. She is in too much pain today for discharge. She did do well in PT/OT and will have another session tomorrow prior to discharge. Dr. Pelayo aware and agrees with plan. (2) S/P total knee arthroplasty: The patient was educated regarding today's findings. Conservative care measures were discussed. Her dressings were removed. New Silverlon dressing was applied. She will keep this in place until seen in the office on May 07 for Zipline removal. Written discharge instructions were provided. She will use aspirin twice daily for DVT prophylaxis. Prescription for oxycodone has been sent to her pharmacy. Call the office with any other concerns.
[2023-04-23] MEDS: PYRIDOXINE HCL 50 MG TAB PO SCH (21:08)
[2023-04-23] MEDS: traMADol HCL 50 MG TABLET PO PRN (21:08)
[2023-04-23] MEDS: CYANOCOBALAMIN (B-12) 500 MCG TABLET PO SCH (21:08)
[2023-04-23] MEDS: CALCIUM CITRATE 950 MG TAB PO SCH (21:08)
[2023-04-23] MEDS: MONTELUKAST SODIUM 10 MG TABLET PO SCH (21:09)
[2023-04-23] MEDS: SENNA 8.6 MG TAB PO SCH (21:09)
[2023-04-23] MEDS: MAGNESIUM OXIDE 400 MG TAB PO SCH (21:09)
[2023-04-23] MEDS: LANTUS PER UNIT CHARGE SQ SCH (21:10)
[2023-04-24] MEDS: Scopolamine CHECK PATCH PLACEMENT SCH ×2 (00:23→08:14)
[2023-04-24] MEDS: traMADol HCL 50 MG TABLET PO PRN ×2 (03:56→11:28)
[2023-04-24] MEDS: LEVOTHYROXINE SODIUM 150 MCG TABLET PO SCH (05:33)
[2023-04-24] MEDS: ACETAMINOPHEN 500 MG TAB PO SCH (05:33)
[2023-04-24] MEDS: CHOLECALCIFEROL 5,000 UNITS 125 MCG TAB PO SCH (08:16)
[2023-04-24] MEDS: DOCUSATE SODIUM 100 MG CAP PO SCH (08:16)
[2023-04-24] MEDS: FENOFIBRATE NANOCRYSTALLIZED 145 MG TABLET PO SCH (08:16)
[2023-04-24] MEDS: ASCORBIC ACID 500 MG TAB PO SCH (08:17)
[2023-04-24] MEDS: ASPIRIN 81 MG ECTAB PO SCH (08:17)
[2023-04-24] MEDS: KETOROLAC 0.5% OP SOLN 5 ML BTL OPL SCH (08:18)
[2023-04-24] MEDS: MULTIVITAMIN TAB PO SCH (08:18)
[2023-04-24] MEDS: PANTOprazole 40 MG TAB PO SCH (08:18)
[2023-04-24] MEDS: prednisoLONE acetate 1% OP SUSP 5 ML BTL OPL SCH (08:19)
[2023-04-24] MEDS: INSULIN ASPART PER UNIT CHARGE SC SCH (08:19)
[2023-04-24] MEDS: LOSARTAN POTASSIUM 50 MG TAB PO SCH ×3 (08:21→10:57)
--- NOTE | 2023-04-24 09:14 | Orthopedic Progress Note ---
Date of Service April 24, 2023 Assessment & Plan (1) S/P total knee arthroplasty: Plan: The patient was educated regarding today's findings. Conservative care measures were discussed. Her dressings were removed. New Silverlon dressing was applied. She will keep this in place until seen in the office on May 07 for Zipline removal. Written discharge instructions were provided. She will use aspirin twice daily for DVT prophylaxis. Prescription for oxycodone has been sent to her pharmacy. Call the office with any other concerns. Admission and Anticipated Discharge Date Admission Date: April 22, 2023 Subjective This 67-year-old female seen today in her room. She is postop day 2 from left total knee arthroplasty. She states today is better than yesterday. Her pain is reasonably controlled. She feels she can go home today. She denies any chest pain, shortness of breath, nausea, vomiting, or abdominal pain. No other complaints. Physical Exam Physical Exam: General: Well-developed, well-nourished, middle-aged female, in no acute distress. Laying in bed. Alert and oriented. Skin: Warm and dry with good turgor. No rashes. Postsurgical dressings are in place on the left knee. Upon removal, she has a Zipline intact. Dressings have dried blood on them. There is no active bleeding. Expected postoperative edema. No ecchymosis. Musculoskeletal: The patient has intact motor function of her ankle and toes. She is unable to perform a straight leg raise without assistance. She is able to set her quad. Full terminal extension. Flexion to around 30 degrees secondary to pain. Neurologic: Gross sensation is intact across the left leg by soft touch. Peripheral pulses are 2+. Results & Data Vital Signs (Past 12 Hours) Vital Signs Temp Pulse Resp BP Pulse Ox O2 Del Method 04/24/23 07:46 36.6 C 96 H 16 154/89 H 93 Room Air 04/24/23 07:25 Room Air Laboratory Results Glucose obtained this morning was 133. (1) S/P total knee arthroplasty Laterality: left Qualified Code(s): Z96.652 - Presence of left artificial knee joint
--- NOTE | 2023-04-24 11:10 | Hospitalist Progress Note ---
Date of Service April 24, 2023 Assessment & Plan (1) S/P total knee arthroplasty: (2) Diabetes mellitus, type 2: (3) Sleep apnea: (4) Hyperlipidemia: (5) Hypertension: Plan Patient is a 67 yr female who has a significant past medical history of controlled T2DM, HTN, HLD, hypothyroidism, HERBERT, GERD, obesity and fibromyalgia who presented for elective left knee arthroplasty. Left knee osteoarthritis S/P L TKA by Dr. Pelayo on 04/22/23 EBL: 120ml Expected postoperative blood loss anemia Pain/wound management per orthopedics Activity and therapy as per orthopedics Fall precautions Encourage incentive spirometer Continue PT OT Bowel regimen to prevent constipation Indication for blood transfusion currently Reactive leukocytosis Needs follow-up with PCP, orthopedics upon discharge DM II chronic, stable HbA1c 7.1 hold jardiance and glipizide Continue Novolog/lantus per protocol HTN chronic, stable Resume amlodipine, losartan Monitor BP HLD chronic, stable on coq10 not on statin therapy most recent chol 304 10/2021 HERBERT continue cpap at HS Obesity, BMI 38.5 diet/lifestyle modifications DVT Px: ASA bid per ortho Code Status FULL CODE Patient seen in collaboration with Dr. Acosta. Please see addendum. Thank you for this consultation. We will follow the patient with you during their hospital stay. You can reach a member of the [facility] Hospitalist Team 25/11 via [place]. Admission and Anticipated Discharge Date Admission Date: April 22, 2023 Supervising Physician Co-Signing Physician Notes Patient is seen and examined at bedside on day of discharge. Left knee pain at surgical site is much controlled. Denies any nausea, vomiting, chest pain, dizziness, dyspnea. Physical exam unchanged from yesterday. Patient was advised to follow-up with PCP in 1 week upon discharge. I personally reviewed the record. Patient is interviewed and examined at bedside. Patient's care is coordinated with Skylar Corona PA-C. Please refer to the documentation above for details of patient's presentation and for discussion of other issues. Subjective Seen and examined in 310 in follow-up for knee replacement. Pain is controlled, denies any distal numbness or paresthesias in lower extremity. Ambulating without issue with therapy. Denies any fever, chills, lightness, headache, no chest pain or shortness of breath. Tolerating diet without issue. No nausea, vomiting or abdominal pain. No dysuria, passing flatus. Drain removed in preparation for discharge today by primary service. Review of Systems Review of Systems: At least ten systems reviewed and negative except as noted in the HPI. Physical Exam Physical Exam: General Appearance: Obese, no apparent distress, resting in bed Head: normocephalic, Atraumatic Eyes: normal inspection Neck: supple Respiratory/Chest: Normal breath sounds, CTA, No accessory muscle use Cardiovascular: S1, S2, No murmur Abdomen/GI: Soft, Non tender, Bowel sounds present Extremities/Musculoskeletal:normal inspection, Trace pedal edema, L knee in surgical dressing c/d/i Neurologic/Psych:AAOX3, grossly no focal neurological deficits Skin: normal color, warm Results & Data Results & Data Vital Signs (Past 12 Hours) Vital Signs Temp Pulse Resp BP Pulse Ox O2 Del Method 04/24/23 07:46 36.6 C 96 H 16 154/89 H 93 Room Air 04/24/23 07:25 Room Air Diagnostic Findings Knee X-Ray 04/22/23 10:10 LEFT KNEE 2 VIEWS History: Left total knee arthroplasty. Degenerative arthritis. Postop. FINDINGS: The patient is status post a left total knee arthroplasty. The hardware is intact. No fracture or dislocation. IMPRESSION: Left total knee arthroplasty. No evidence for hardware complication. ACT 112: Negative or not required by law. Electronically signed by: Duy Desai M.D. 04/22/2023 10:52 AM (1) S/P total knee arthroplasty Laterality: left Qualified Code(s): Z96.652 - Presence of left artificial knee joint (2) Diabetes mellitus, type 2 Diabetes mellitus complication status: without complication Diabetes mellitus chcf insulin use: without chcf use Qualified Code(s): E11.9 - Type 2 diabetes mellitus without complications (4) Hyperlipidemia Hyperlipidemia type: mixed hyperlipidemia Qualified Code(s): E78.2 - Mixed hyperlipidemia
== END 2023-04-24 11:37 | disposition home health service (06) ==
LOC: ASU 05:18 → 3E 05:18